=== PATIENT | male | born 1980 | race Caucasian/White ===

== ENCOUNTER 2020-04-25 10:46 | Outpatient (CLI) | payer BC, SELFPAY ==
--- NOTE | 2020-05-06 03:40 | SLEEP_ITS ---
Home Sleep Test DATE OF STUDY: 04/25/2020 ORDERING PHYSICIAN: Dr. Margarito Ramos. REASON FOR THE STUDY: Sleep disturbance. HISTORY: This patient is a 39-year-old male, 5 feet 11 inches tall, weighing 305 pounds with a body mass index of 42.5. The test was recommended to him by his doctor based on his weight. He rarely awakens from sleep short of breath. He occasionally awakens at night with heartburn, belching, or coughing. He rarely snores and it is not loud enough that others complain about it. He rarely has trouble sleeping with a cold. He occasionally wakes up gasping for breath during the night, rarely has breathing problems at night observed by others, rarely sweats excessively at night or notices his heart pounding or beating irregularly at night. He rarely falls asleep during the day or involuntarily, rarely falls asleep while driving or during physical effort. He rarely has loss of muscle tone with strong emotion. 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 He rarely feels paralyzed on waking or falling asleep. He never has vivid dreamlike scenes upon awakening or falling asleep and does not feel afraid to go to sleep. He rarely has nightmares. He occasionally remembers his dreams. He rarely has racing thoughts, feelings of sadness or depression. He occasionally has anxiety. He rarely has muscular tension. He occasionally notices parts of his body jerking. He rarely kicks at night and rarely has crawly achy feelings in his legs at night. He occasionally has leg pain at night. He does not have morning jaw pain, rarely grinds his teeth at night. He rarely is bothered by pain during the day and rarely is awakened by pain during the night. He occasionally wakes up feeling stiff in the morning, rarely with sore achy muscles or pain in the neck and spine. He has bowel disturbances. He does not have a fixed bedtime. He estimates 7 to 8 hours of sleep at night, waking once or twice at night. He does work shift engineer. If he wakes up during sleep, he will use the bathroom and get a drink of water. He wakes up in the afternoon at 3:30 p.m. on days that he works. He sleeps during the daytime through the week and on the weekends he reverts and sleeps at night. He does not take naps. A short nap may be refreshing. He feels better in the afternoon than other times a day. MEDICAL COMORBIDITIES: Diabetes mellitus, hypertension, neuropathy, hyperlipidemia. MEDICATIONS: 1. Metformin 500 mg 2 b.i.d. 2. Glimepiride 2 mg b.i.d. 3. Lisinopril 20 mg a day. 4. Gabapentin 300 mg in the day and 600 mg before sleep. 5. Fenofibrate 160 mg a day. 6. Rosuvastatin 25 mg a day. 7. Amitriptyline 10 mg at bedtime. HABITS: Never smoked tobacco. Caffeine, 2 beverages a day. No alcohol or recreational drugs. DESCRIPTION OF THE STUDY: On the Stanley Sleepiness Scale the score is 11. This test was conducted as an unattended type 3 portable home sleep test using 4 channel monitoring including respiratory effort channel, snoring channel, oxygen saturation channel, and heart rate channel. This study was scored using [facility] guidelines. Duration of the study was 7 hours, 20 minutes. Apnea-hypopnea index was 22. Oxygen desaturation index is 21. Lowest desaturation 82%. He had 7 apneas, 3 were obstructive, 43%, and 4 were central, 57%. He had 154 hypopneas, 383 snoring events and 155 desaturations spending 10 minutes or 2% of the study below 88%. Heart rate ranged from 71 to 130. IMPRESSION: 1. This home sleep test shows evidence of at least moderate obstructive sleep apnea syndrome G47.33 with an apnea-hypopnea index of 22, 3 obstructive apneas, 154 hypopneas. He desaturated to 82% and spent 10 minutes below 88%
== END 2020-04-25 10:47 | disposition home or self-care (01) ==
LOC: ANHCSM 10:46
PROVIDERS: Visit Provider Internal Medicine
DX: G47.33 Obstructive sleep apnea (adult) (pediatric) (principal)
CPT/HCPCS: 95806

== ENCOUNTER 2022-08-21 10:48 | Emergency (ER) | payer BC, SELFPAY ==
[2022-08-21 12:25] VITALS: BP 140/80; PULSE 90; RESP 18; TEMP 36.8; O2SAT 99
== END 2022-08-21 12:28 | disposition left against medical advice (07) ==
PROVIDERS: Emergency Provider Internal Medicine Hematology & Oncology
DX: Z53.21 Procedure and treatment not carried out due to patient leaving prior to being seen by health care provider (principal)
CPT/HCPCS: 99199

== ENCOUNTER 2022-08-25 10:17 | Emergency (ER) | payer BC, SELFPAY ==
[2022-08-25 10:26] VITALS: BP 151/87; PULSE 87; RESP 16; TEMP 36.1; O2SAT 100
--- NOTE | 2022-08-25 10:40 | ED.SKABFB ---
HPI - Skin/Abscess/Foreign Bdy General Chief complaint: Skin/Abscess/Foreign Body Stated complaint: Rash On Body Time Seen by Provider: 08/25/22 10:30 Source: patient Mode of arrival: ambulatory Limitations: no limitations History of Present Illness HPI narrative: Kofi is a 42-year-old male patient presenting to the clinic today with complaints of a rash on his hands, arms, legs, and feet. he reports that the rash is not really itchy or painful. States no new changes in environment, soaps, shampoos, detergents, new foods, or new medications. He has mild swelling to the bilateral lower extremities with a red splotchy rash and changes in pigmentation as well as a scaly red blotchy rash to his bilateral hands going up his arms. He denies any fever, fatigue, chills, or URI symptoms. He has been applying cold on non scented lotion to his lower extremities and hands Related Data Home Medications Medication Instructions Recorded Confirmed glimepiride 4 mg tablet 4 mg PO DAILY 08/25/22 08/25/22 rosuvastatin 20 mg tablet 20 mg PO DAILY 08/25/22 08/25/22 Allergies Allergy/AdvReac Type Severity Reaction Status Date / Time No Known Allergies Allergy Verified 08/25/22 10:27 Review of Systems Review of Systems: Pertinent positives per HPI. Patient denies any fever, chills, headache, visual changes, dizziness, cough, runny nose, sore throat, shortness of breath, chest pain, palpitations, nausea, vomiting, diarrhea, constipation, abdominal pain, or any urinary issues. PMFSH Past Medical History Medical History High blood sugar Family History Family History Father Hypertension Social History Social History Smoking status: Never smoker Alcohol intake: never Comments At the time of my signature, I reviewed and agree with the nursing past medical, surgical, social, and family history. There is no relevant family history pertinent to the patient complaint. Exam Narrative: General: Well-developed, well nourished, in no apparent distress Head: Normocephalic, atraumatic. Cardio: Regular rate and rhythm, s1 and s2 normal, no murmur appreciated. Resp: Clear to auscultation bilaterally, no rhonchi, rales, wheezing or rubs. Integumentary: [place], warm, and dry, intact without lesion, red splotchy rash with changes in pigmentation to the bilateral lower legs with 1+ pitting edema, scaly red splotchy rash to the bilateral hands palm. and nontender to palpation. Rash is blanchable Course Course Emergency Course: Portions of this record may have been created with voice recognition software. Level of Care: Express Care Visit Vital Signs Vital signs: Vital Signs Temperature 36.1 C L 08/25/22 10:26 Pulse Rate 87 08/25/22 10:26 Respiratory Rate 16 08/25/22 10:26 Blood Pressure 151/87 H 08/25/22 10:26 Pulse Oximetry 100 08/25/22 10:26 Oxygen Delivery Room Air 08/25/22 10:26 Temperature 36.1 C L 08/25/22 10:26 Pulse Rate 87 08/25/22 10:26 Respiratory Rate 16 08/25/22 10:26 Blood Pressure 151/87 H 08/25/22 10:26 Pulse Oximetry 100 08/25/22 10:26 Oxygen Delivery Room Air 08/25/22 10:26 Vital signs reviewed MDM - Skin/Abscess/Foreign Bdy MDM Narrative Medical decision making narrative: At the time of the patient is resting comfortably on the exam table. I suspect patient has venous stasis dermatitis of the bilateral lower extremities and dermatitis of the upper extremities. Prescription for prednisone and triamcinolone cream was ordered to see if this improves the rash. Recommend compression stockings. Supportive measures were discussed with the patient he voiced understanding of discharge instructions and agrees to treatment plan. Differential Diagnosis Differential diagnosis: Likely absc
== END 2022-08-25 10:49 | disposition home or self-care (01) ==
PROVIDERS: Emergency Provider Nurse Practitioner Family
DX: I87.2 Venous insufficiency (chronic) (peripheral) (principal); L20.9 Atopic dermatitis, unspecified; E11.9 Type 2 diabetes mellitus without complications
CPT/HCPCS: 99213; G0463

== ENCOUNTER 2024-09-18 14:25 | Outpatient (NON) | payer BC, SELFPAY ==
--- OUTSIDE RECORDS SUMMARY | 2024-09-18 15:09 | XMS_ITS | Referral Summary ---
Author Organization [facility] Address [id number] [place] [id number] Care Team Providers Care Animal Groomer Name Role Phone Kunal Diana MD Primary Care Provider [phone] Encounters Date Type Department Care Team Description 09/18/2024 8:00 AM INTERIOR ASSEMBLIES INSTALLER Procedure visit [facility] Wound [address] [address] 09/17/2024 Orders Only [facility] Primary Care at [address] [place] [phone] Kunal Diana MD 09/17/2024 10:00 AM INTERIOR ASSEMBLIES INSTALLER Orders Only [facility] [address] [place] [phone] 09/17/2024 8:00 AM INTERIOR ASSEMBLIES INSTALLER Procedure visit [address] [address] 09/14/2024 8:00 AM INTERIOR ASSEMBLIES INSTALLER Procedure visit [facility] [address] [place] [phone] 09/13/2024 8:00 AM INTERIOR ASSEMBLIES INSTALLER Procedure visit [address] [address] 09/13/2024 10:00 AM INTERIOR ASSEMBLIES INSTALLER Orders Only [facility] [address] [place] [address] 09/12/2024 8:00 AM INTERIOR ASSEMBLIES INSTALLER Procedure visit [address] [address] 09/11/2024 7:51 AM INTERIOR ASSEMBLIES INSTALLER - 09/11/2024 11:59 PM INTERIOR ASSEMBLIES INSTALLER Hospital Encounter [facility] Radiology [address] [place] [phone] 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) Discharge Disposition: Discharge to home or self care 09/10/2024 Telephone [facility] [address] [place] [phone] Vincent Reed MD 09/06/2024 8:45 AM INTERIOR ASSEMBLIES INSTALLER Orders Only [facility] [address] [place] [phone] 08/23/2024 10:27 AM INTERIOR ASSEMBLIES INSTALLER - 08/23/2024 11:59 PM INTERIOR ASSEMBLIES INSTALLER Hospital Encounter [facility] Diagnostic Imaging [address] [place] [phone] Acute osteomyelitis of metatarsal bone of left foot (HCC) Discharge Disposition: Discharge to home or self care 08/23/2024 10:28 AM INTERIOR ASSEMBLIES INSTALLER - 08/23/2024 11:59 PM INTERIOR ASSEMBLIES INSTALLER Hospital Encounter [facility] [address] [place] [phone] Acute osteomyelitis of metatarsal bone of left foot (HCC) Discharge Disposition: Discharge to home or self care 08/23/2024 Orders Only [facility] [address] [place] [phone] Sharon Aguirre NP Acute osteomyelitis of metatarsal bone of left foot (HCC) (Primary Dx) 08/23/2024 8:45 AM INTERIOR ASSEMBLIES INSTALLER Orders Only [facility] [address] [place] [address] 08/16/2024 9:00 AM INTERIOR ASSEMBLIES INSTALLER Office Visit [facility] Primary Care at [address] [place] [phone] Kunal Diana MD Type 2 diabetes mellitus with hyperlipidemia (HCC) (Primary Dx); Class 3 severe obesity due to excess calories with serious comorbidity and body mass index (BMI) of 40.0 to 44.9 in adult (HCC); Morbid (severe) obesity due to excess calories (HCC); Type 2 diabetes mellitus with hyperglycemia, without long-term current use of insulin (HCC) 08/13/2024 Orders Only [facility] [address] [facility] [address] [place] [phone] Sharon Aguirre NP Other acute osteomyelitis of left foot (HCC) (Primary Dx); Type 2 diabetes mellitus with foot ulcer (CODE) (HCC) 08/09/2024 6:28 PM INTERIOR ASSEMBLIES INSTALLER - 08/09/2024 11:59 PM INTERIOR ASSEMBLIES INSTALLER Hospital Encounter [facility] [address] [place] [phone] Diagnosis unknown Discharge Disposition: Discharge to home or self care 08/09/2024 Orders Only [facility] [address] [place] [phone] Sharon Aguirre NP Diabetic ulcer of toe of left foot associated with type 2 diabetes mellitus, with fat layer exposed (HCC) (Primary Dx) 08/09/2024 8:45 AM INTERIOR ASSEMBLIES INSTALLER Orders Only [facility] [address] [place] [address] 08/02/2024 Orders Only [facility] [address] [place] [address] Sharon Aguirre NP 07/26/2024 9:10 AM INTERIOR ASSEMBLIES INSTALLER - 07/26/2024 11:59 PM INTERIOR ASSEMBLIES INSTALLER Hospital Encounter [address] [address] Diabetic ulcer of toe of left foot associated with type 2 diabetes mellitus, with fat layer exposed (HCC) Discharge Disposition: Discharge to home or self care 07/26/2024 Orders Only [facility] [address] [place] [phone] Sharon Aguirre NP Diabetic ulcer of toe of left foot associated with type 2 diabetes mellitus, with fat layer exposed (HCC) (Primary Dx) 06/27/2024 Orders Only [facility] [address] [place] [phone] Sharon Aguirre NP 06/21/2024 9:35 AM CDT - 06/21/2024 11:59 PM CDT Hospital Encounter [address] [address] Diabetic ulcer of toe of left foot associated with type 2 diabetes mellitus, with fat layer exposed (HCC) Discharge Disposition: Discharge to home or self care 06/21/2024 Orders Only [facility] [address] [place] [address] Sharon Aguirre, RODRIGO Diabetic ulcer of toe of left foot associated with type 2 diabetes mellitus, with fat layer exposed (HCC) (Primary Dx) from Last 3 Months Allergies No known active allergies Medications metFORMIN XR (GLUCOPHAGE XR) 500 mg 24 hr tablet TAKE 2 TABLETS(1000 MG) BY MOUTH TWICE DAILY 360 tablet 1 05/02/20 24 Active amitriptyline (ELAVIL) 10 mg tablet TAKE 1 TABLET(10 MG) BY MOUTH EVERY NIGHT 90 tablet 1 05/02/20 24 Active ammonium lactate (LAC-HYDRIN) 12 % lotionIndicati ons:Dry Skin Apply topically as needed for dry skin 400 g 1 05/25/20 24 Active glimepiride (AMARYL) 4 mg tablet Take 1 tablet (4 mg total) by mouth 2 (two) times a day with meals 180 tablet 1 08/16/20 24 025 Active rosuvastatin (CRESTOR) 5 mg tablet Take 1 tablet (5 mg total) by mouth daily 90 tablet 1 08/16/20 24 025 Active tirzepatide (MOUNJARO) 7.5 mg/0.5 mL pen injector injection Inject 0.5 mL (7.5 mg total) under the skin every 7 days 6 mL 1 09/17/19 25 025 Active tirzepatide (Mounjaro) 5 mg/0.5 mL pen injector Inject 5 mg under the skin every 7 days 6 mL 08/16/20 24 025 Discontinued Active Problems Problem Noted Date Diagnosed Date Idiopathic peripheral neuropathy 12/08/2023 Assessment & Plan (12/08/2023 2:53 PM CDT): Still having sx Not at goal at this time Start elavil 10 mg qhs Type 2 diabetes mellitus with hyperlipidemia Assessment & Plan (08/16/2024 9:07 AM INTERIOR ASSEMBLIES INSTALLER): Lab Results Component Value Date HGBA1C 9.3 08/16/2024 HGBA1C 9.2 03/22/2024 HGBA1C 10.8 12/08/2023 Lab Results Component Value Date MICROALBUR 43.1 04/18/2024 CREATININE 0.74 04/18/2024 A1c as above Not at goal Continue with metformin 1000 mg xr bid. Amaryl 4 mg every am, crestor 5 mg every day C/w monjouro Increase to 5 mg qweekly Assessment & Plan (04/02/2024 10:04 AM CDT): Lab Results Component Value Date HGBA1C 9.2 03/22/2024 HGBA1C 10.8 12/08/2023 Lab Results Component Value Date CREATININE 0.94 03/26/2021 A1c as above Not at goal Continue with metformin 1000 mg xr bid. Amaryl 4 mg every am, crestor 5 mg every day C/w monjouro Assessment & Plan (03/22/2024 12:49 PM CDT): Lab Results Component Value Date HGBA1C 9.2 03/22/2024 HGBA1C 10.8 12/08/2023 Lab Results Component Value Date CREATININE 0.94 03/26/2021 Repeat A1c Labs still pending Check labs now, microalbumin, tsh, cmp Continue with metformin 1000 mg xr bid. Amaryl 4 mg every am, crestor 5 mg every day Had side effects to ozempic Will d/c now Start monjouro lowest dose now Assessment & Plan (12/08/2023 3:08 PM CDT): Lab Results Component Value Date HGBA1C 10.8 12/08/2023 Lab Results Component Value Date CREATININE 0.94 03/26/2021 Check A1c now - uncontrolled Check labs now, microalbumin, tsh, cmp Start metfomrin 500 mg xr every day, with ramp up to 1000 mg bid, start rosuvastatin 5 mg every day , glimpeiride 4 mg every day, and ozempic 0.5 mg qweekluy Annual physical exam 12/08/2023 Assessment & Plan (12/08/2023 2:54 PM CDT): Discussed lifestyle modifications, diet and exercise. Routine blood work ordered/reviewed today. Yearly vision and dental examinations. Morbid (severe) obesity due to excess calories 0 12/08/2023 Assessment & Plan (08/16/2024 9:01 AM INTERIOR ASSEMBLIES INSTALLER): Wt Readings from Last 3 Encounters: 08/16/24 (!) 137.4 kg (303 lb) 04/02/24 131.6 kg (290 lb 1.6 oz) 03/22/24 133 kg (293 lb 3.2 oz) BMI Readings from Last 3 Encounters: 08/16/24 43.48 kg/m?? 04/02/24 41.63 kg/m?? 03/22/24 42.07 kg/m?? Not at goal of bmi <30 Continue diet and exercise BMI Follow-up includes: nutrition counseling and exercise counseling. Assessment & Plan (04/02/2024 10:06 AM CDT): Wt Readings from Last 3 Encounters: 04/02/24 131.6 kg (290 lb 1.6 oz) 03/22/24 133 kg (293 lb 3.2 oz) 12/08/23 132.1 kg (291 lb 4.8 oz) BMI Readings from Last 3 Encounters: 04/02/24 41.63 kg/m?? 03/22/24 42.07 kg/m?? 12/08/23 41.80 kg/m?? Not at goal of bmi <30 Continue diet and exercise BMI Follow-up includes: nutrition counseling and exercise counseling. Assessment & Plan (03/22/2024 12:54 PM CDT): Wt Readings from Last 3 Encounters: 03/22/24 133 kg (293 lb 3.2 oz) 12/08/23 132.1 kg (291 lb 4.8 oz) 03/26/21 (!) 142.9 kg (315 lb) BMI Readings from Last 3 Encounters: 03/22/24 42.07 kg/m?? 12/08/23 41.80 kg/m?? 03/26/21 43.93 kg/m?? Not at goal of bmi <30 Continue diet and exercise BMI Follow-up includes: nutrition counseling and exercise counseling. Assessment & Plan (12/08/2023 3:07 PM CDT): Wt Readings from Last 3 Encounters: 12/08/23 132.1 kg (291 lb 4.8 oz) 03/26/21 (!) 142.9 kg (315 lb) BMI Readings from Last 3 Encounters: 12/08/23 41.80 kg/m?? 03/26/21 43.93 kg/m?? Not at goal of bmi <30 Continue diet and exercise BMI Follow-up includes: nutrition counseling and exercise counseling. Class 3 severe obesity due t o excess calories with serious comorbidity and body mass index (BMI) of 40.0 to 44.9 in adult 12/08/2023 Assessment & Plan (08/16/2024 9:01 AM INTERIOR ASSEMBLIES INSTALLER): Wt Readings from Last 3 Encounters: 08/16/24 (!) 137.4 kg (303 lb) 04/02/24 131.6 kg (290 lb 1.6 oz) 03/22/24 133 kg (293 lb 3.2 oz) BMI Readings from Last 3 Encounters: 08/16/24 43.48 kg/m?? 04/02/24 41.63 kg/m?? 03/22/24 42.07 kg/m?? Not at goal of bmi <30 Continue diet and exercise BMI Follow-up includes: nutrition counseling and exercise counseling. Assessment & Plan (04/02/2024 10:06 AM CDT): Wt Readings from Last 3 Encounters: 04/02/24 131.6 kg (290 lb 1.6 oz) 03/22/24 133 kg (293 lb 3.2 oz) 12/08/23 132.1 kg (291 lb 4.8 oz) BMI Readings from Last 3 Encounters: 04/02/24 41.63 kg/m?? 03/22/24 42.07 kg/m?? 12/08/23 41.80 kg/m?? Not at goal of bmi <30 Continue diet and exercise BMI Follow-up includes: nutrition counseling and exercise counseling. Assessment & Plan (03/22/2024 12:54 PM CDT): Wt Readings from Last 3 Encounters: 03/22/24 133 kg (293 lb 3.2 oz) 12/08/23 132.1 kg (291 lb 4.8 oz) 03/26/21 (!) 142.9 kg (315 lb) BMI Readings from Last 3 Encounters: 03/22/24 42.07 kg/m?? 12/08/23 41.80 kg/m?? 03/26/21 43.93 kg/m?? Not at goal of bmi <30 Continue diet and exercise BMI Follow-up includes: nutrition counseling and exercise counseling. Assessment & Plan (12/08/2023 3:07 PM CDT): Wt Readings from Last 3 Encounters: 12/08/23 132.1 kg (291 lb 4.8 oz) 03/26/21 (!) 142.9 kg (315 lb) BMI Readings from Last 3 Encounters: 12/08/23 41.80 kg/m?? 03/26/21 43.93 kg/m?? Not at goal of bmi <30 Continue diet and exercise BMI Follow-up includes: nutrition counseling and exercise counseling. Immunizations Name Administration Dates Next Due DTP 06/24/1986,03/11/1986,01/28/1981 Influenza, Unspecified 08/16/2024(Deferr ed: Patient Refused),04/02/2024(Deferred: Patient Refused),11/18/2023(Deferred: Patient Refused) MMR 11/26/1985 OPV 06/24/1986,03/11/1986,01/28/1981 Pfizer SARS-CoV-2 Monovalent Vaccination (12+ Yrs) PURPLE 10/20/2020,10/20/2020,09/26/2020,2020 Td, adsorbed 03/12/1996 Tdap 03/26/2021,01/18/2012 Social History Tobacco Use Types Packs/Day Years Used Date Smoking Tobacco: Never Smokeless Tobacco: Never Tobacco Cessation:Counseling Given: Yes AUDIT-C Answer Date Recorded Q1: How often do you have a drink containing alc ohol? Monthly or less 08/16/2024 Q2: How many drinks containi ng alcohol do you have on a typical day when you are drinking? 1 or 2 08/16/2024 Q3: How often do you have si x or more drinks on one occasion? Never 08/16/2024 PHQ-2 Answer Date Recorded PHQ-2 Total Score (If total score is 3 or more points, staff should administer the PHQ-9) 0 08/16/2024 Sex and Gender Information Value Date Recorded Sex Assigned at Not on file Legal Sex Male 7:07 AM CDT Gender Identity Not on file Sexual Orientation Not on file Last Filed Vital Signs Vital Sign Reading Time Taken Comments Blood Pressure 120/86 08/16/2024 8:45 AM INTERIOR ASSEMBLIES INSTALLER Pulse 77 08/16/2024 8:45 AM INTERIOR ASSEMBLIES INSTALLER Temperature 36.4 ??C (97.5 ??F) 03/22/2024 12:37 PM C DT Respiratory Rate 16 08/16/2024 8:45 AM INTERIOR ASSEMBLIES INSTALLER Oxygen Saturation 98% 08/16/2024 8:45 AM INTERIOR ASSEMBLIES INSTALLER Inhaled Oxygen Concentration - - Weight 137.4 kg (303 lb) 08/16/2024 8:45 AM INTERIOR ASSEMBLIES INSTALLER Height 177.8 cm (5' 10 ) 08/16/2024 8:45 AM INTERIOR ASSEMBLIES INSTALLER Body Mass Index 43.48 08/16/2024 8:45 AM INTERIOR ASSEMBLIES INSTALLER Plan of Treatment Not on file Procedures Procedure Name Priority Date/Time Associated Diagnosis Comments POCT GLUCOSE DEVICE Routine 09/12/2024 8 :11 AM INTERIOR ASSEMBLIES INSTALLER IR PICC LINE PLACEMENT > 5 YEARS Schedule Routine, Read Routine (OP Routine) 09/11/2024 9:12 AM INTERIOR ASSEMBLIES INSTALLER 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) ECG 12-LEAD Routine 08/23/2024 11:00 AM INTERIOR ASSEMBLIES INSTALLER Acute osteomyelitis of metatarsal bone of left foot (HCC) XR CHEST PA LATERAL 2 VIEWS Schedule Routine, Read Routine (OP Routine) 08/23/2024 10:53 AM INTERIOR ASSEMBLIES INSTALLER Acute osteomyelitis of metatarsal bone of left foot (HCC) POCT HEMOGLOBIN A1C Routine 08/16/2024 8 :55 AM INTERIOR ASSEMBLIES INSTALLER Type 2 diabetes mellitus with hyperlipidemia (HCC) MSK MR OUTSIDE CONSULT Routine 08/09/2024 6:28 PM INTERIOR ASSEMBLIES INSTALLER Diagnosis unknown AEROBIC AND ANAEROBIC CULTURE AND GRAM STAIN Routine 07/26/2024 9:10 AM INTERIOR ASSEMBLIES INSTALLER Diabetic ulcer of toe of left foot associated with type 2 diabetes mellitus, with fat layer exposed (HCC) AEROBIC AND ANAEROBIC CULTURE AND GRAM STAIN Routine 06/21/2024 9:35 AM CDT Diabetic ulcer of toe of left foot associated with type 2 diabetes mellitus, with fat layer exposed (HCC) HEPATITIS C ANTIBODY Routine 04/18/2024 12:16 PM CDT COMPREHENSIVE METABOLIC PANEL Routine 04/18/2024 12:16 PM CDT Type 2 diabetes mellitus with hyperlipidemia (HCC) LIPID PANEL Routine 04/18/2024 12:16 PM CDT Type 2 diabetes mellitus with hyperlipidemia (HCC) ALBUMIN CREATININE RATIO, URINE Routine 04/18/2024 12:16 PM CDT Type 2 diabetes mellitus with hyperlipidemia (HCC) from Last 3 Months or Most Recently Relevant to Health Maintenance Results * (ABNORMAL) POCT glucose (09/12/2024 8:11 AM INTERIOR ASSEMBLIES INSTALLER) Glucose, POC 217(H) 70 - 199 mg/dL Blood 09/12/2024 8:11 AM INTERIOR ASSEMBLIES INSTALLER 09/12/2024 8:11 AM INTERIOR ASSEMBLIES INSTALLER us Meng Messina MD LAB POCT ORDERABLES - RIVERA CE Final Result [id number] [place] [address] * IR PICC Line Placement Over 5 Years of Age (09/11/2024 9:12 AM INTERIOR ASSEMBLIES INSTALLER) Anatomical Region Laterality Modality Body N/A X-Ray Angiograph y 09/11/2024 10:0 3 AM INTERIOR ASSEMBLIES INSTALLER Impressions 09/11/2024 10:03 AM INTERIOR ASSEMBLIES INSTALLER Successful PICC placement using ultrasound guidance. Electronically signed by: Hieu Capone M.D. Narrative 09/11/2024 10:03 AM INTERIOR ASSEMBLIES INSTALLER EXAMINATION: IR PICC LINE PLACEMENT OVER 5 YEARS OF AGE DATE: 09/11/2024 8:30 AM HISTORY: PICC PLACEMENT TECHNIQUE: The risks, benefits, and alternatives were discussed and informed consent was obtained. ??Prior to beginning the procedure, universal protocol was performed to confirm the patient's identity and the planned procedure. ??Maximum sterile barriers including cap, mask, hand hygiene, sterile gloves, sterile gown, large sterile drape, sterile gel, sterile ultrasound probe cover, and 2% chlorhexidine for cutaneous antisepsis were used. The skin over the right basilic vein was sterilely prepped, draped, and infiltrated with lidocaine. ??Prior to the procedure, this target vessel was evaluated by ultrasound and an image of the patent vessel demonstrating vessel patency was recorded in the patient's electronic medical record. ??This vessel was then accessed using real-time ultrasound guidance. ??A guidewire was passed centrally using fluoroscopic guidance. ??The intravascular length from the access site to the right atrium was assessed. ??After dilating the tract, a 45 cm, 5-Wolof dual-lumen PICC was inserted through the peel-away sheath. The peel-away sheath was then removed. ??The catheter was flushed and secured in place. ??A sterile dressing was applied. The final fluoroscopic image demonstrates the catheter with its tip at the cavoatrial junction. ??No complications were identified. The catheter is ready for immediate use. ??When treatment is completed, this catheter can be removed at the bedside according to standard hospital protocol. Procedure Note Hieu Capone MD - 09/11/2024 EXAMINATION: IR PICC LINE PLACEMENT OVER 5 YEARS OF AGE DATE: 09/11/2024 8:30 AM HISTORY: PICC PLACEMENT TECHNIQUE: The risks, benefits, and alternatives were discussed and informed consent was obtained. Prior to beginning the procedure, universal protocol was performed to confirm the patient's identity and the planned procedure. Maximum sterile barriers including cap, mask, hand hygiene, sterile gloves, sterile gown, large sterile drape, sterile gel, sterile ultrasound probe cover, and 2% chlorhexidine for cutaneous antisepsis were used. The skin over the right basilic vein was sterilely prepped, draped, and infiltrated with lidocaine. Prior to the procedure, this target vessel was evaluated by ultrasound and an image of the patent vessel demonstrating vessel patency was recorded in the patient's electronic medical record. This vessel was then accessed using real-time ultrasound guidance. A guidewire was passed centrally using fluoroscopic guidance. The intravascular length from the access site to the right atrium was assessed. After dilating the tract, a 45 cm, 5-Wolof dual-lumen PICC was inserted through the peel-away sheath. The peel-away sheath was then removed. The catheter was flushed and secured in place. A sterile dressing was applied. The final fluoroscopic image demonstrates the catheter with its tip at the cavoatrial junction. No complications were identified. The catheter is ready for immediate use. When treatment is completed, this catheter can be removed at the bedside according to standard hospital protocol. IMPRESSION: Successful PICC placement using ultrasound guidance. Electronically signed by: Hieu Capone M.D. Ciaran Nogueira MD IMG IR PROCEDURES Final Result * ECG 12 lead (08/23/2024 11:00 AM INTERIOR ASSEMBLIES INSTALLER) 08/23/2024 10:4 8 AM INTERIOR ASSEMBLIES INSTALLER Narrative [facility] - 08/23/2024 3:30 PM INTERIOR ASSEMBLIES INSTALLER Vent Rate: 68 bpm RR Interval: 882 msec WI Interval: 160 msec QRS Duration: 102 msec QT Interval: 352 msec QTC Interval: 368 msec P-R-T [place]: 21 - 49 - 26 degrees IMPRESSION: SINUS RHYTHM NORMAL ECG Electronically Signed By: Dr. Braulio Winter Sharon Aguirre NP ECG ORDERABLES Fin al Result [facility] * X-ray chest 2 views (08/23/2024 10:53 AM INTERIOR ASSEMBLIES INSTALLER) Anatomical Region Laterality Modality Body, Chest N/A Computed Radiogr aphy 08/23/2024 10:5 9 AM INTERIOR ASSEMBLIES INSTALLER Impressions 08/23/2024 10:59 AM INTERIOR ASSEMBLIES INSTALLER Normal study. Electronically signed by: Leo Price M.D. Narrative 08/23/2024 10:59 AM INTERIOR ASSEMBLIES INSTALLER EXAMINATION: XR CHEST PA LATERAL 2 VIEWS HISTORY: Osteomyelitis FINDINGS: Normal heart size. The lungs are well aerated without evidence of fluid, failure or confluent infiltrates. No significant bone abnormalities are seen. Procedure Note Leo Price MD - 08/23/2024 EXAMINATION: XR CHEST PA LATERAL 2 VIEWS HISTORY: Osteomyelitis FINDINGS: Normal heart size. The lungs are well aerated without evidence of fluid, failure or confluent infiltrates. No significant bone abnormalities are seen. IMPRESSION: Normal study. Electronically signed by: Leo Price M.D. Sharon Aguirre BPO SPECIALIST IMG XR PROCEDURES F inal Result * (ABNORMAL) POCT hemoglobin A1c (08/16/2024 8:55 AM INTERIOR ASSEMBLIES INSTALLER) Hemoglobin A1C, POC 9.3 4.0 - 5.6 % Capillary blood 08/16/2024 8 :55 AM INTERIOR ASSEMBLIES INSTALLER Kunal Diana MD POINT OF CARE TEST ORDERABLES Fi nal Result * MSK MR Outside Consult (08/09/2024 6:28 PM INTERIOR ASSEMBLIES INSTALLER) Anatomical Region Laterality Modality N/A Magnetic Resonan ce 08/10/2024 10:3 0 AM INTERIOR ASSEMBLIES INSTALLER Impressions 08/10/2024 1:17 PM INTERIOR ASSEMBLIES INSTALLER Soft tissue defect/ulceration lateral to the 5th metatarsophalangeal joint with T2 signal abnormality about the fifth proximal phalanx and to a lesser extent the fifth metatarsal head, consistent with osteomyelitis. The findings, conclusions and recommendations within this report do not replace the initial findings, conclusions ??and recommendations made at the facility where the study was performed based upon the imaging and clinical condition at that time. ??Comparison with the prior report and clinical history is necessary. ??The provided images may or may not represent the [place] source data set and thus may contain changes that may lower the accuracy of this second-opinion interpretation. Dictated by: Charley Galvan MD, PhD The radiology attending physician has personally reviewed this study, and had reviewed and/or edited this written report and agrees with it. Electronically signed by: Turner Mir MD Narrative 08/10/2024 1:17 PM INTERIOR ASSEMBLIES INSTALLER EXAMINATION: RADIOLOGY CONSULTATION ON OUTSIDE IMAGING STUDY STUDY INITIALLY PERFORMED: 08/06/2024 at [facility], [place]. TYPE OF STUDY: Multiple MR images of the left foot without contrast are provided at the time of this interpretation. CONTRAST ROUTE: No contrast was administered. The protocol was adequate to address the clinical question. The outside final report was not available at the time of this second opinion interpretation. TYPE OF CONSULTATION: Consult on outside imaging study with images submitted through [facility]aring [facility] DATE OF CONSULTATION: 08/10/2024 8:31 AM HISTORY: 44-year-old man with chronic ulcer on the base of the left fifth metatarsal, for evaluation of osteomyelitis COMPARISON: None available. FINDINGS: There is a 15 x 11 mm superficial ulceration lateral to the fifth metatarsophalangeal joint associated adjacent subcutaneous edema and skin thickening. There is T2 signal abnormality about the fifth proximal phalanx, and to a lesser extent, the fifth metatarsal head. Trace fluid at the metatarsophalangeal joint. ??No discrete drainable fluid collection/abscess. No significant joint effusion. 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 Visualized tendons are intact. ??No acute fracture is present. Subacute on chronic denervation of the intrinsic foot musculature. Procedure Note Turner Mir MD - 08/10/2024 EXAMINATION: RADIOLOGY CONSULTATION ON OUTSIDE IMAGING STUDY STUDY INITIALLY PERFORMED: 08/06/2024 at [facility], [place]. TYPE OF STUDY: Multiple MR images of the left foot without contrast are provided at the time of this interpretation. CONTRAST ROUTE: No contrast was administered. The protocol was adequate to address the clinical question. The outside final report was not available at the time of this second opinion interpretation. TYPE OF CONSULTATION: Consult on outside imaging study with images submitted through Outside Image Sharing Service DATE OF CONSULTATION: 08/10/2024 8:31 AM HISTORY: 44-year-old man with chronic ulcer on the base of the left fifth metatarsal, for evaluation of osteomyelitis COMPARISON: None available. FINDINGS: There is a 15 x 11 mm superficial ulceration lateral to the fifth metatarsophalangeal joint associated adjacent subcutaneous edema and skin thickening. There is T2 signal abnormality about the fifth proximal phalanx, and to a lesser extent, the fifth metatarsal head. Trace fluid at the metatarsophalangeal joint. No discrete drainable fluid collection/abscess. No significant joint effusion. 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 Visualized tendons are intact. No acute fracture is present. Subacute on chronic denervation of the intrinsic foot musculature. IMPRESSION: Soft tissue defect/ulceration lateral to the 5th metatarsophalangeal joint with T2 signal abnormality about the fifth proximal phalanx and to a lesser extent the fifth metatarsal head, consistent with osteomyelitis. The findings, conclusions and recommendations within this report do not replace the initial findings, conclusions and recommendations made at the facility where the study was performed based upon the imaging and clinical condition at that time. Comparison with the prior report and clinical history is necessary. The provided images may or may not represent the [place] source data set and thus may contain changes that may lower the accuracy of this second-opinion interpretation. Dictated by: Charley Galvan MD, PhD The radiology attending physician has personally reviewed this study, and had reviewed and/or edited this written report and agrees with it. Electronically signed by: Turner Mir MD Meng Messina MD IM MRI PROCEDURES Final R esult * (ABNORMAL) Aerobic and anaerobic culture and gram stain Wound Foot, left (07/26/2024 9:10 AM INTERIOR ASSEMBLIES INSTALLER) Direct Specimen Exam Stain: Few polymorphonuclear leukocytes seen. Moderate Gram Positive Cocci Comment:Testing performed by : [facility], [address] [facility], [place]., [address] Report Final Report: Moderate Streptococcus agalactiae (Group B Streptococci) * ??* ??* ??* ??* ??* ??* ??* ??* ??* ??* ??* ??* ??* ??* ??* ??* ??* ??* ??* Resistance to penicillin in Group B Streptococcus has not been reported. ??Group B Streptococci are universally susceptible to beta-lactam antibiotics and vancomycin. Routine susceptibility testing is not performed. In penicillin allergic patients, please contact the laboratory at [phone] to request susceptibility testing * ??* ??* ??* ??* ??* ??* ??* ??* ??* ??* ??* ??* ??* ??* ??* ??* ??* ??* ??* Few Staphylococcus aureus Methicillin susceptible (MSSA) by penicillin binding protein 2a (PBP2a) testing. Few Mixed microorganisms. (.) GARY Comment:Testing performed by : [facility], [address] [place]., [address] Organism STREPTOCOCCUS AGALACTIAE (GROUP B STREPTOCOCCI) GARY Organism STAPHYLOCOCCUS AUREUS GARY Organism MIXED MICROORGANISMS. GARY Wound (Foot, left) 07/26/2024 9:10 AM INTERIOR ASSEMBLIES INSTALLER 07/26/2024 4:18 PM INTERIOR ASSEMBLIES INSTALLER Narrative [facility] - 07/30/2024 1:43 PM INTERIOR ASSEMBLIES INSTALLER Specimen received on an ESwab. Testing performed by [facility] ([phone]) Specimens submitted from normally sterile body sites will have all bacterial morphotypes identified. Specimens that contain grossly mixed priyank and/or are from body sites that are not normally sterile will be examined for Staphylococcus aureus, Pseudomonas aeruginosa, beta-hemolytic strep, vancomycin-resistant Enterococcus, Bacteroides, Parabacteroides, Clostridium perfringens and fungus. If any of these are isolated, the organism will be reported. Current interpretive data was last revised on 2019. Organism Antibiotic Method Susceptibility Staphylococcus aureus Vancomycin INTERPRETATION Susceptible Staphylococcus aureus Trimethoprim with Sulfamethoxazole INTERPRETATION Susceptible Staphylococcus aureus Linezolid INTERPRETATION Susceptible Staphylococcus aureus Doxycycline INTERPRETATION Intermediate Staphylococcus aureus Clindamycin INTERPRETATION Susceptible Staphylococcus aureus Erythromycin INTERPRETATION Susceptible Staphylococcus aureus Oxacillin INTERPRETATION Susceptible Staphylococcus aureus Cefazolin INTERPRETATION Susceptible Staphylococcus aureus Ceftriaxone INTERPRETATION Susceptible us Sharon Aguirre NP LAB MICROBIOLOGY - GENERAL ORDERABLES Final Result GARY [address] Department [place] [address] * (ABNORMAL) Aerobic and anaerobic culture and gram stain Wound Foot, left (06/21/2024 9:35 AM CDT) Direct Specimen Exam Stain: No polymorphonuclear leukocytes seen. No organisms seen. Comment:Testing performed by : [facility], [address] [place]., [address] Report Final Report: Few Mixed microorganisms. Includes the following: Few Staphylococcus aureus Methicillin susceptible (MSSA) by penicillin binding protein 2a (PBP2a) testing. (.) GARY Comment:Testing performed by : [facility], [address] [place]., [address] Organism MIXED MICROORGANISMS. GARY Organism STAPHYLOCOCCUS AUREUS GARY Wound (Foot, left) 06/21/2024 9:35 AM CDT 06/21/2024 5:53 PM CDT Narrative GARY - 06/27/2024 2:38 PM INTERIOR ASSEMBLIES INSTALLER Specimen received on an ESwab. Testing performed by [facility] ([phone]) Specimens submitted from normally sterile body sites will have all bacterial morphotypes identified. Specimens that contain grossly mixed priyank and/or are from body sites that are not normally sterile will be examined for Staphylococcus aureus, Pseudomonas aeruginosa, beta-hemolytic strep, vancomycin-resistant Enterococcus, Bacteroides, Parabacteroides, Clostridium perfringens and fungus. If any of these are isolated, the organism will be reported. Current interpretive data was last revised on 2019. Organism Antibiotic Method Susceptibility Staphylococcus aureus Vancomycin INTERPRETATION Susceptible Staphylococcus aureus Trimethoprim with Sulfamethoxazole INTERPRETATION Susceptible Staphylococcus aureus Linezolid INTERPRETATION Susceptible Staphylococcus aureus Doxycycline INTERPRETATION Susceptible Staphylococcus aureus Clindamycin INTERPRETATION Susceptible Staphylococcus aureus Erythromycin INTERPRETATION Susceptible Staphylococcus aureus Oxacillin INTERPRETATION Susceptible Staphylococcus aureus Cefazolin INTERPRETATION Susceptible Staphylococcus aureus Ceftriaxone INTERPRETATION Susceptible us Sharon Aguirre NP LAB MICROBIOLOGY - GENERAL ORDERABLES Final Result GARY [address] Department [place] [address] * Hepatitis C antibody (04/18/2024 12:16 PM CDT) Hep C Ab NON-REACTI VE NON-REACT CHANDRAKANT [facility] Comment: HCV antibody was non-reactive. There is no laboratory evidence of HCV infection. In most cases, no further action is required. However, if recent HCV exposure is suspected, a test for HCV RNA (test code 85222) is suggested. For additional information please refer to http://education.[employer]2Launch/faq/TAE36t6 (This link is being provided for informational/ educational purposes only.) 04/18/2024 12:1 6 PM CDT 04/18/2024 12:16 PM CDT us Kunal Diana MD LAB MICROBIOLOGY - GENERAL ORDER CORINNE Final Result Performing Organization Address [facility] de Phone Number [facility] [address] [place] [address] * (ABNORMAL) Albumin Creatinine Ratio, Urine (04/18/2024 12:16 PM CDT) Creatinine, ur 169 20 - 320 mg/dL [facility] Microalbumin, ur 43.1 See Note: mg/dL [facility] Comment: Reference Range: Reference Range Not established Microalbumin/creat ratio 255(H) <30 mg/g creat [facility] Comment: The ADA defines abnormalities in albumin excretion as follows: Albuminuria Category ?Result (mg/g creatinine) Normal to Mildly increased ?? <30 Moderately increased ? 30-299 Severely increased ? > OR = 300 The ADA recommends that at least two of three specimens collected within a 3-6 month period be abnormal before considering a patient to be within a diagnostic category. Urine 04/18/2024 12:1 6 PM CDT 04/18/2024 12:16 PM CDT us Kunal Diana MD LAB URINE ORDERABLES Final Resul t Performing Organization Address [facility] Co de Phone Number [facility] [address] [place] [address] * (ABNORMAL) Lipid panel (04/18/2024 12:16 PM CDT) Cholesterol 260(H) <200 mg/dL [facility] HDL 45 > OR = 40 mg/dL [facility] Triglycerides 942(H) <150 mg/dL [facility] Comment: If a non-fasting specimen was collected, consider repeat triglyceride testing on a fasting specimen if clinically indicated. Rebeca et al. J. of Clin. Lipidol. 2015;9:129-169. There is increased risk of pancreatitis when the triglyceride concentration is very high (> or = 500 mg/dL, especially if > or = 1000 mg/dL). Rebeca et al. J. of Clin. Lipidol. 2015;9:129-169. LDL mg/dL (calc) [facility] Comment: LDL cholesterol not calculated. Triglyceride levels greater than 400 mg/dL invalidate calculated LDL results. Reference range: <100 Desirable range <100 mg/dL for primary prevention; ?? <70 mg/dL for patients with CHD or diabetic patients with > or = 2 CHD risk factors. LDL-C is now calculated using the Marcelo-Pearl calculation, which is a validated novel method providing better accuracy than the Friedewald equation in the estimation of LDL-C. Marcelo CULLEN et al. KIRA. 2013;310(19): 3745-3478 (http://education.[employer]faq/JGI483) Chol/HDL ratio 5.8(H) <5.0 (calc) [facility] Non-HDL, (LDL+VLDL) 215(H) <130 mg/dL (calc) [facility] Comment: For patients with diabetes plus 1 major ASCVD risk factor, treating to a non-HDL-C goal of <100 mg/dL (LDL-C of <70 mg/dL) is considered a therapeutic option. Blood 04/18/2024 12:1 6 PM CDT 04/18/2024 12:16 PM CDT us Kunal Lebron MD LAB BLOOD ORDERABLES Final Resul t [facility] [address] [place] [address] * (ABNORMAL) Comprehensive metabolic panel (04/18/2024 12:16 PM CDT) Glucose 198(H) 65 - 99 mg/dL [facility] Comment: ? Fasting reference interval For someone without known diabetes, a glucose value >125 mg/dL indicates that they may have diabetes and this should be confirmed with a follow-up test. BUN 13 7 - 25 mg/dL [facility] Creatinine 0.74 0.60 - 1.29 mg/dL [facility] eGFR 115 > OR = 60 mL/min/1.7 3m2 [facility] BUN/creat ratio SEE NOTE: (calc) [facility]en [facility] reed Malcolm Comment: ?? Not Reported: BUN and Creatinine are within ?? reference range. ? Sodium 133(L) 135 - 146 mmol/L [facility] Potassium, pl 4.3 3.5 - 5.3 mmol/L [facility] Chloride 98 98 - 110 mmol/L [facility] CO2 25 20 - 32 mmol/L [facility] Calcium 9.3 8.6 - 10.3 mg/dL [facility] Protein, sr 7.6 6.1 - 8.1 g/dL [facility] Albumin 4.4 3.6 - 5.1 g/dL Carmen [facility] Malcolm GLOBULIN 3.2 1.9 - 3.7 g/dL (calc) [facility] Alb/glob ratio 1.4 1.0 - 2.5 (calc) [facility] Bilirubin, total 0.6 0.2 - 1.2 mg/dL Carmen [facility] Alk phos 55 36 - 130 U/L [facility] AST 28 10 - 40 U/L [facility] Malcolm ALT (SGPT) 32 9 - 46 U/L [facility] Malcolm Blood 04/18/2024 12:1 6 PM CDT 04/18/2024 12:16 PM CDT us Kunal Diana MD LAB BLOOD ORDERABLES Final Resul t [facility] [address] [place] [address] from Last 3 Months or Most Recently Relevant to Health Maintenance Insurance [employer] [place] Member Subscriber Plan / Payer ( fective 2015-Present) Name:Kofi Tang Relation to Subscriber:Self Name:Kofi Tang Payer ID:[id number] (NAIC) Type:BC OTHER Address: [address] [place] [id number] Care Teams Animal Groomer Relationship Specialty Start Date End Date Kunal Diana MD [address] [place] [address] PCP - General Family Medicine 12/08/23
--- OUTSIDE RECORDS SUMMARY | 2024-09-18 15:09 | XMS_ITS | Encounter Summary ---
Author Organization [facility] Healthcare Address [address] [place] [address] Care Team Providers Care Thumb Sewer Name Role Phone Kunal Diana MD Primary Care Provider [phone] Encounter Details Date Type Department Care Team (Late st Contact Info) Description 09/18/2024 8:00 AM GALLEY HAND Procedure visit [facility] [address] [place] [id number] Social History Tobacco Use Types Packs/Day Years Used Date Smoking Tobacco: Never Smokeless Tobacco: Never AUDIT-C Answer Date Recorded Q1: How often [...] on file Sexual Orientation Not on file documented as of this encounter Plan of Treatment Not on file documented as of this encounter Visit Diagnoses Not on filedocumented in this encounter Care Teams Thumb Sewer Relationship Specialty Start Date End Date Kunal Diana MD [address] [place] [address] PCP - General Family Medicine 12/08/23 documented as of this encounter
--- OUTSIDE RECORDS SUMMARY | 2024-09-18 15:09 | XMS_ITS | Encounter Summary ---
Author Organization [facility] Healthcare Address [address] [place] [address] Care Team Providers Care Commercial Agent Name Role Phone Kunal Diana MD Primary Care Provider [phone] Encounter Details Date Type Department Care Team (Late st Contact Info) Description 09/17/2024 10:00 AM SWITCH CREW SUPERVISOR Orders Only [facility] [address] [place] [address] [phone] Social History Tobacco Use Types Packs/Day Years [...] on filedocumented in this encounter Care Teams Commercial Agent Relationship Specialty Start Date End Date Kunal Diana MD [address] [place] [address] PCP - General Family Medicine 12/08/23 documented as of this encounter
--- OUTSIDE RECORDS SUMMARY | 2024-09-18 15:09 | XMS_ITS | Clinical Summary ---
Author Organization [facility] Address [address] [place] [address] Care Team Providers Care R Developer Name Role Phone Kunal Diana MD Primary Care Provider [phone] Allergies No known active allergies Medications metFORMIN [...] hyperlipidemia Assessment & Plan (08/16/2024 9:07 AM ELECTRICIAN SUBSTATION SUPERVISOR): Lab Results Component Value Date HGBA1C 9.3 [...] 12/08/2023 Assessment & Plan (08/16/2024 9:01 AM ELECTRICIAN SUBSTATION SUPERVISOR): Wt Readings from Last 3 Encounters: 08/16/24 [...] 12/08/2023 Assessment & Plan (08/16/2024 9:01 AM ELECTRICIAN SUBSTATION SUPERVISOR): Wt Readings from Last 3 Encounters: 08/16/24 [...] Follow-up includes: nutrition counseling and exercise counseling. Encounters Date Type Department Care Team Description 09/18/2024 8:00 AM ELECTRICIAN SUBSTATION SUPERVISOR Procedure visit [address] [address] 09/17/2024 10:00 AM ELECTRICIAN SUBSTATION SUPERVISOR Orders Only [address] [address] 09/17/2024 8:00 AM ELECTRICIAN SUBSTATION SUPERVISOR Procedure visit [address] [address] 09/17/2024 Orders Only [facility] Primary Care at [address] [address] Kunal Diana MD 09/14/2024 8:00 AM ELECTRICIAN SUBSTATION SUPERVISOR Procedure visit [facility] [address] [place] [address] 09/13/2024 10:00 AM ELECTRICIAN SUBSTATION SUPERVISOR Orders Only [facility] [address] [place] [address] 09/13/2024 8:00 AM ELECTRICIAN SUBSTATION SUPERVISOR Procedure visit [facility] [address] [place] [address] 09/12/2024 8:00 AM ELECTRICIAN SUBSTATION SUPERVISOR Procedure visit [facility] [address] [place] [address] 09/11/2024 7:51 AM ELECTRICIAN SUBSTATION SUPERVISOR - 09/11/2024 11:59 PM ELECTRICIAN SUBSTATION SUPERVISOR Hospital Encounter [facility] [address] [place] [address] 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) Discharge Disposition: Discharge to home or self care 09/10/2024 Telephone [facility] [address] [place] [address] Vincent Reed MD 09/06/2024 8:45 AM ELECTRICIAN SUBSTATION SUPERVISOR Orders Only [facility] [address] [place] [address] 08/23/2024 10:28 AM ELECTRICIAN SUBSTATION SUPERVISOR - 08/23/2024 11:59 PM ELECTRICIAN SUBSTATION SUPERVISOR Hospital Encounter [facility] [address] [place] [address] Acute osteomyelitis of metatarsal bone of left foot (HCC) Discharge Disposition: Discharge to home or self care 08/23/2024 10:27 AM ELECTRICIAN SUBSTATION SUPERVISOR - 08/23/2024 11:59 PM ELECTRICIAN SUBSTATION SUPERVISOR Hospital Encounter [facility] Diagnostic Imaging [address] [place] [address] Acute osteomyelitis of metatarsal bone of left foot (HCC) Discharge Disposition: Discharge to home or self care 08/23/2024 8:45 AM ELECTRICIAN SUBSTATION SUPERVISOR Orders Only [facility] [address] [place] [address] 08/23/2024 Orders Only [facility] [address] [place] [address] Sharon Aguirre NP Acute osteomyelitis of metatarsal bone of left foot (HCC) (Primary Dx) 08/16/2024 9:00 AM ELECTRICIAN SUBSTATION SUPERVISOR Office Visit [facility] Primary Care at [address] [place] [address] Kunal Diana MD Type 2 diabetes mellitus with hyperlipidemia (HCC) (Primary Dx); Class 3 severe obesity due to excess calories with serious comorbidity and body mass index (BMI) of 40.0 to 44.9 in adult (HCC); Morbid (severe) obesity due to excess calories (HCC); Type 2 diabetes mellitus with hyperglycemia, without long-term current use of insulin (HCC) 08/13/2024 Orders Only [facility] [address] [facility] [address] [address] Sharon Aguirre NP Other acute osteomyelitis of left foot (HCC) (Primary Dx); Type 2 diabetes mellitus with foot ulcer (CODE) (HCC) 08/09/2024 6:28 PM ELECTRICIAN SUBSTATION SUPERVISOR - 08/09/2024 11:59 PM ELECTRICIAN SUBSTATION SUPERVISOR Hospital Encounter [facility] [address] [place] [address] Diagnosis unknown Discharge Disposition: Discharge to home or self care 08/09/2024 8:45 AM ELECTRICIAN SUBSTATION SUPERVISOR Orders Only [facility] [address] [place] [address] 08/09/2024 Orders Only [facility] [address] [place] [address] Sharon Aguirre NP Diabetic ulcer of toe of left foot associated with type 2 diabetes mellitus, with fat layer exposed (HCC) (Primary Dx) 08/02/2024 Orders Only [facility] [address] [place] [address] Sharon Aguirre NP 07/26/2024 9:10 AM ELECTRICIAN SUBSTATION SUPERVISOR - 07/26/2024 11:59 PM ELECTRICIAN SUBSTATION SUPERVISOR Hospital Encounter [address] [address] Diabetic ulcer of toe of left foot associated with type 2 diabetes mellitus, with fat layer exposed (HCC) Discharge Disposition: Discharge to home or self care 07/26/2024 Orders Only [facility] [address] [place] [address] Sharon Aguirre NP Diabetic ulcer of toe of left foot associated with type 2 diabetes mellitus, with fat layer exposed (HCC) (Primary Dx) 06/27/2024 Orders Only [facility] [address] [place] [address] Sharon Aguirre NP 06/21/2024 9:35 AM CDT - 06/21/2024 11:59 PM CDT Hospital Encounter [address] [address] Diabetic ulcer of toe of left foot associated with type 2 diabetes mellitus, with fat layer exposed (HCC) Discharge Disposition: Discharge to home or self care 06/21/2024 Orders Only [facility] [address] [place] [address] Sharon Aguirre NP Diabetic ulcer of toe of left foot associated with type 2 diabetes mellitus, with fat layer exposed (HCC) (Primary Dx) from Last 3 Months Immunizations Name Administration Dates Next Due DTP 06/24/1986,03/11/1986,01/28/1981 Influenza, Unspecified 08/16/2024(Deferr ed: Patient Refused),04/02/2024(Deferred: Patient Refused),11/18/2023(Deferred: Patient Refused) MMR 11/26/1985 OPV 06/24/1986,03/11/1986,01/28/1981 Pfizer SARS-CoV-2 Monovalent Vaccination (12+ Yrs) PURPLE 10/20/2020,10/20/2020,09/26/2020,2020 Td, adsorbed 03/12/1996 Tdap 03/26/2021,01/18/2012 Surgical History Surgery Date Site/Laterality Comments IR PICC LINE PLACEMENT > 5 YEARS 09/11/2024 N/A Social History Tobacco Use Types Packs/Day Years [...] on file Sexual Orientation Not on file Obstetrics History Last Filed Vital Signs Vital Sign Reading Time Taken Comments Blood Pressure 120/86 08/16/2024 8:45 AM ELECTRICIAN SUBSTATION SUPERVISOR Pulse 77 08/16/2024 8:45 AM ELECTRICIAN SUBSTATION SUPERVISOR Temperature 36.4 ??C (97.5 ??F) 03/22/2024 12:37 PM C DT Respiratory Rate 16 08/16/2024 8:45 AM ELECTRICIAN SUBSTATION SUPERVISOR Oxygen Saturation 98% 08/16/2024 8:45 AM ELECTRICIAN SUBSTATION SUPERVISOR Inhaled Oxygen Concentration - - Weight 137.4 kg (303 lb) 08/16/2024 8:45 AM ELECTRICIAN SUBSTATION SUPERVISOR Height 177.8 cm (5' 10 ) 08/16/2024 8:45 AM ELECTRICIAN SUBSTATION SUPERVISOR Body Mass Index 43.48 08/16/2024 8:45 AM ELECTRICIAN SUBSTATION SUPERVISOR Plan of Treatment Health Maintenance Due Date Last Done Comments Dilated Eye Exam 1980 Foot Exam 1980 Pneumococcal vaccine <65 (1 of 2 - PCV) 1986 Varicella Vaccines (1 of 2 - 13+ 2-dose series) 1993 Covid-19 Vaccine ( season) 2024 10/12/2021, 10/20/2020, 10/20/2020, Additional history exists Influenza Vaccine (#1) 2024 Regular Well Visit/Exam 18-64 12/07/2024 12/08/2023 Hemoglobin A1C 02/14/2025 08/16/2024, 08/0 08/2023, 12/08/2023 Albumin Creatinine Ratio, Urine 04/18/2025 04/18/2024 Lipid Panel 04/18/2025 04/18/2024 eGFR 04/18/2025 04/18/2024, 03/26/2021 Depression Screening 08/16/2025 08/16/2024, 04/02/2024, 03/22/2024, Additional history exists DTaP/Tdap/Td Vaccine (6 - Td or Tdap) 03/26/2031 03/26/2021, 01/18/2012, 03/12/1996, Additional history exists Hepatitis B Screening Completed 04/18/2024 Hepatitis C Screening Completed 04/18/2024 HPV Vaccines Aged Out No longer eligi ble based on patient's age to complete this topic Procedures Procedure Name Priority Date/Time Associated Diagnosis Comments POCT GLUCOSE DEVICE Routine 09/12/2024 8 :11 AM ELECTRICIAN SUBSTATION SUPERVISOR IR PICC LINE PLACEMENT > 5 YEARS Schedule Routine, Read Routine (OP Routine) 09/11/2024 9:12 AM ELECTRICIAN SUBSTATION SUPERVISOR 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) ECG 12-LEAD Routine 08/23/2024 11:00 AM ELECTRICIAN SUBSTATION SUPERVISOR Acute osteomyelitis of metatarsal bone of left foot (HCC) XR CHEST PA LATERAL 2 VIEWS Schedule Routine, Read Routine (OP Routine) 08/23/2024 10:53 AM ELECTRICIAN SUBSTATION SUPERVISOR Acute osteomyelitis of metatarsal bone of left foot (HCC) POCT HEMOGLOBIN A1C Routine 08/16/2024 8 :55 AM ELECTRICIAN SUBSTATION SUPERVISOR Type 2 diabetes mellitus with hyperlipidemia (HCC) JUSTYN MR OUTSIDE CONSULT Routine 08/09/2024 6:28 PM ELECTRICIAN SUBSTATION SUPERVISOR Diagnosis unknown AEROBIC AND ANAEROBIC CULTURE AND GRAM STAIN Routine 07/26/2024 9:10 AM ELECTRICIAN SUBSTATION SUPERVISOR Diabetic ulcer of toe of left foot [...] * (ABNORMAL) POCT glucose (09/12/2024 8:11 AM ELECTRICIAN SUBSTATION SUPERVISOR) Glucose, POC 217(H) 70 - 199 mg/dL Blood 09/12/2024 8:11 AM ELECTRICIAN SUBSTATION SUPERVISOR 09/12/2024 8:11 AM ELECTRICIAN SUBSTATION SUPERVISOR us Meng Messina MD LAB POCT ORDERABLES - RIVERA CE Final Result [facility] [address] Department [place] [address] * IR PICC Line Placement Over 5 Years of Age (09/11/2024 9:12 AM ELECTRICIAN SUBSTATION SUPERVISOR) Anatomical Region Laterality Modality Body N/A X-Ray Angiograph y 09/11/2024 10:0 3 AM ELECTRICIAN SUBSTATION SUPERVISOR Impressions 09/11/2024 10:03 AM ELECTRICIAN SUBSTATION SUPERVISOR Successful PICC placement using ultrasound guidance. Electronically signed by: Hieu Capone M.D. Narrative 09/11/2024 10:03 AM ELECTRICIAN SUBSTATION SUPERVISOR EXAMINATION: IR PICC LINE PLACEMENT OVER 5 [...] ??After dilating the tract, a 45 cm, 5-Cymro dual-lumen PICC was inserted through the peel-away [...] After dilating the tract, a 45 cm, 5-Cymro dual-lumen PICC was inserted through the peel-away [...] * ECG 12 lead (08/23/2024 11:00 AM ELECTRICIAN SUBSTATION SUPERVISOR) 08/23/2024 10:4 8 AM ELECTRICIAN SUBSTATION SUPERVISOR Narrative [facility] - 08/23/2024 3:30 PM ELECTRICIAN SUBSTATION SUPERVISOR Vent Rate: 68 bpm RR Interval: 882 msec DC Interval: 160 msec QRS Duration: 102 msec QT Interval: 352 msec QTC Interval: 368 msec P-R-T [place]: 21 - 49 - 26 degrees IMPRESSION: SINUS RHYTHM NORMAL ECG Electronically Signed By: Dr. Braulio Winter Sharon Aguirre NP ECG ORDERABLES Fin al Result [facility] * X-ray chest 2 views (08/23/2024 10:53 AM ELECTRICIAN SUBSTATION SUPERVISOR) Anatomical Region Laterality Modality Body, Chest N/A Computed Radiogr aphy 08/23/2024 10:5 9 AM ELECTRICIAN SUBSTATION SUPERVISOR Impressions 08/23/2024 10:59 AM ELECTRICIAN SUBSTATION SUPERVISOR Normal study. Electronically signed by: Leo Price M.D. Narrative 08/23/2024 10:59 AM ELECTRICIAN SUBSTATION SUPERVISOR EXAMINATION: XR CHEST PA LATERAL 2 VIEWS [...] signed by: Leo Price M.D. Sharon Aguirre TELEGRAPH PLANT MAINTAINER IMG XR PROCEDURES F inal Result * (ABNORMAL) POCT hemoglobin A1c (08/16/2024 8:55 AM ELECTRICIAN SUBSTATION SUPERVISOR) Hemoglobin A1C, POC 9.3 4.0 - 5.6 % Capillary blood 08/16/2024 8 :55 AM ELECTRICIAN SUBSTATION SUPERVISOR Kunal Diana MD POINT OF CARE TEST ORDERABLES Fi nal Result * MSK MR Outside Consult (08/09/2024 6:28 PM ELECTRICIAN SUBSTATION SUPERVISOR) Anatomical Region Laterality Modality N/A Magnetic Resonan ce 08/10/2024 10:3 0 AM ELECTRICIAN SUBSTATION SUPERVISOR Impressions 08/10/2024 1:17 PM ELECTRICIAN SUBSTATION SUPERVISOR Soft tissue defect/ulceration lateral to the 5th [...] images may or may not represent the council source data set and thus may contain changes that may lower the accuracy of this second-opinion interpretation. Dictated by: Charley Galvan MD, PhD The radiology attending physician has personally reviewed this study, and had reviewed and/or edited this written report and agrees with it. Electronically signed by: Turner Mir MD Narrative 08/10/2024 1:17 PM ELECTRICIAN SUBSTATION SUPERVISOR EXAMINATION: RADIOLOGY CONSULTATION ON OUTSIDE IMAGING STUDY STUDY INITIALLY PERFORMED: 08/06/2024 at [facility]. TYPE OF STUDY: Multiple MR images of [...] IMAGING STUDY STUDY INITIALLY PERFORMED: 08/06/2024 at [facility]. TYPE OF STUDY: Multiple MR images of [...] images may or may not represent the council source data set and thus may contain changes that may lower the accuracy of this second-opinion interpretation. Dictated by: Charley Galvan MD, PhD The radiology attending physician has personally reviewed this study, and had reviewed and/or edited this written report and agrees with it. Electronically signed by: Turner Mir MD us Meng Messina MD IMG MRI PROCEDURES Final R esult * (ABNORMAL) Aerobic and anaerobic culture and gram stain Wound Foot, left (07/26/2024 9:10 AM ELECTRICIAN SUBSTATION SUPERVISOR) Direct Specimen Exam Stain: Few polymorphonuclear leukocytes seen. Moderate Gram Positive Cocci Comment:Testing performed by : [facility], [address] [facility], [place]., [address] Report Final Report: Moderate Streptococcus agalactiae (Group [...] allergic patients, please contact the laboratory at [phone] to request susceptibility testing * ??* ??* ??* ??* ??* ??* ??* ??* ??* ??* ??* ??* ??* ??* ??* ??* ??* ??* ??* Few Staphylococcus aureus Methicillin susceptible (MSSA) by penicillin binding protein 2a (PBP2a) testing. Few Mixed microorganisms. (.) GARY SULLIVAN Comment:Testing performed by : [facility], [address] [place] [address]., [id number] Organism STREPTOCOCCUS AGALACTIAE (GROUP B STREPTOCOCCI) GARY Organism STAPHYLOCOCCUS AUREUS GARY Organism MIXED MICROORGANISMS. GARY SULLIVAN Wound (Foot, left) 07/26/2024 9:10 AM ELECTRICIAN SUBSTATION SUPERVISOR 07/26/2024 4:18 PM ELECTRICIAN SUBSTATION SUPERVISOR Narrative GARY - 07/30/2024 1:43 PM ELECTRICIAN SUBSTATION SUPERVISOR Specimen received on an ESwab. Testing performed by [facility] ([phone]) Specimens submitted from normally sterile body sites [...] INTERPRETATION Susceptible Staphylococcus aureus Ceftriaxone INTERPRETATION Susceptible Sharon Aguirre NP LAB MICROBIOLOGY - GENERAL ORDERABLES Final Result GARY [address] Department [place] [address] * (ABNORMAL) Aerobic and anaerobic culture and gram stain Wound Foot, left (06/21/2024 9:35 AM CDT) Direct Specimen Exam Stain: No polymorphonuclear leukocytes seen. No organisms seen. Comment:Testing performed by : [facility], [address] [place] [address]., [id number] Report Final Report: Few Mixed microorganisms. Includes the following: Few Staphylococcus aureus Methicillin susceptible (MSSA) by penicillin binding protein 2a (PBP2a) testing. (.) GARY SULLIVAN Comment:Testing performed by : [facility], [address] [place]., [address] Organism MIXED MICROORGANISMS. GARY Organism STAPHYLOCOCCUS AUREUS GARY Wound (Foot, left) 06/21/2024 9:35 AM CDT 06/21/2024 5:53 PM CDT Narrative GARY SULLIVAN - 06/27/2024 2:38 PM ELECTRICIAN SUBSTATION SUPERVISOR Specimen received on an ESwab. Testing performed by [facility] ([phone]) Specimens submitted from normally sterile body sites [...] INTERPRETATION Susceptible Staphylococcus aureus Ceftriaxone INTERPRETATION Susceptible Sharon Aguirre NP LAB MICROBIOLOGY - GENERAL ORDERABLES Final Result GARY SULLIVAN [address] Department [place] [address] * Hepatitis C antibody (04/18/2024 12:16 PM CDT) Hep C Ab NON-REACTI VE NON-REACT CHANDRAKANT [facility] Comment: HCV antibody was non-reactive. There is no laboratory evidence of HCV infection. In most cases, no further action is required. However, if recent HCV exposure is suspected, a test for HCV RNA (test code 58842) is suggested. For additional information please refer to http://education.CarZumer.DocuSign/faq/JEL83j1 (This link is being provided for informational/ educational purposes only.) 04/18/2024 12:1 6 PM CDT 04/18/2024 12:16 PM CDT Kunal Diana MD LAB MICROBIOLOGY - GENERAL ORDER CORINNE Final Result Performing Organization Address [facility] de Phone Number [facility] [address] [place] [address] * (ABNORMAL) Albumin Creatinine Ratio, Urine (04/18/2024 [...] 6 PM CDT 04/18/2024 12:16 PM CDT Kunal Diana MD LAB URINE ORDERABLES Final Resul t Performing Organization Address [facility] de Phone Number [facility] [address] [place] [address] * (ABNORMAL) Lipid panel (04/18/2024 12:16 PM CDT) Cholesterol 260(H) <200 mg/dL [facility] HDL 45 > OR = 40 mg/dL [facility] Triglycerides 942(H) <150 mg/dL [facility] Comment: If a non-fasting specimen was collected, consider repeat triglyceride testing on a fasting specimen if clinically indicated. Rebeca et al. J. of Clin. Lipidol. 2015;9:129-169. There is increased risk of pancreatitis when the triglyceride concentration is very high (> or = 500 mg/dL, especially if > or = 1000 mg/dL). Rebeca et al. J. of Clin. Lipidol. 2015;9:129-169. LDL mg/dL (calc) [facility] Comment: LDL cholesterol not calculated. Triglyceride [...] LDL-C. Marcelo CULLEN et al. KIRA. 2013;310(19): 0119-6753 (http://education.Cool Lumens/faq/IEA192) Chol/HDL ratio 5.8(H) <5.0 (calc) [facility] Non-HDL, (LDL+VLDL) 215(H) <130 mg/dL (calc) [facility] Comment: For patients with diabetes plus 1 major ASCVD risk factor, treating to a non-HDL-C goal of <100 mg/dL (LDL-C of <70 mg/dL) is considered a therapeutic option. Blood 04/18/2024 12:1 6 PM CDT 04/18/2024 12:16 PM CDT us Kunal Diana MD LAB BLOOD ORDERABLES Final Resul t [facility] [address] [place] [address] * (ABNORMAL) Comprehensive metabolic panel (04/18/2024 12:16 PM CDT) Glucose 198(H) 65 - 99 mg/dL [facility] Comment: ? Fasting reference interval For someone without known diabetes, a glucose value >125 mg/dL indicates that they may have diabetes and this should be confirmed with a follow-up test. BUN 13 7 - 25 mg/dL [facility] Creatinine 0.74 0.60 - 1.29 mg/dL [facility] eGFR 115 > OR = 60 mL/min/1.7 3m2 [facility] BUN/creat ratio SEE NOTE: 6 - 22 (calc) [facility] Comment: ?? Not Reported: BUN and Creatinine are within ?? reference range. ? Sodium 133(L) 135 - 146 mmol/L [facility] Potassium, pl 4.3 3.5 - 5.3 mmol/L [facility] Chloride 98 98 - 110 mmol/L [facility] CO2 25 20 - 32 mmol/L [facility] Calcium 9.3 8.6 - 10.3 mg/dL [facility] Protein, sr 7.6 6.1 - 8.1 g/dL [facility] Albumin 4.4 3.6 - 5.1 g/dL [facility] GLOBULIN 3.2 1.9 - 3.7 g/dL (calc) [facility] Alb/glob ratio 1.4 1.0 - 2.5 (calc) [facility] Bilirubin, total 0.6 0.2 - 1.2 mg/dL [facility] Alk phos 55 36 - 130 U/L [facility] AST 28 10 - 40 U/L [facility] ALT (SGPT) 32 9 - 46 U/L [facility] Blood 04/18/2024 12:1 6 PM CDT 04/18/2024 12:16 PM CDT us Kunal Diana MD LAB BLOOD ORDERABLES Final Resul t [facility] [address] [place] [address] from Last 3 Months or Most Recently Relevant to Health Maintenance Insurance [facility] [employer] Care Teams R Developer Relationship Specialty Start Date End Date Kunal Diana MD [address] [facility] [place] [address] PCP - General Family Medicine 12/08/23
--- OUTSIDE RECORDS SUMMARY | 2024-09-18 15:09 | XMS_ITS | Encounter Summary ---
Author Organization [facility] Healthcare Address [address] [place] [address] Care Team Providers Care Commercial Stripper Name Role Phone Kunal Diana MD Primary Care Provider Encounter Details Date Type Department Care Team (Late st Contact Info) Description 09/17/2024 Orders Only [facility] Medical Group Primary Care at [address] [place] [address] Kunal Diana MD [address] [place] [address] [address] [place] [address] Social History Tobacco Use Types Packs/Day Years [...] on file documented as of this encounter Ordered Prescriptions Prescription Sig Dispense Quantity Refills Last Filled Start Date End Date tirzepatide (MOUNJARO) 7.5 mg/0.5 mL pen injector injection Inject 0.5 mL (7.5 mg total) under the skin every 7 days 6 mL 1 09/17/2024 03/16/2025 documented in this encounter Plan of Treatment Not on file documented as of this encounter Visit Diagnoses Not on filedocumented in this encounter Discontinued Medications Medication Sig Discontinue Reason Start Date End Da te tirzepatide (Mounjaro) 5 mg/0.5 mL pen injector Inject 5 mg under the skin every 7 days 08/16/2024 09/17/2024 documented as of this encounter Care Teams Commercial Stripper Relationship Specialty Start Date End Date Kunal Diana MD [address] [facility] [address] [place] [address] PCP - General Family Medicine 12/08/23 documented as of this encounter
--- OUTSIDE RECORDS SUMMARY | 2024-09-18 15:09 | XMS_ITS | Encounter Summary ---
Author Organization [facility] Healthcare Address [address] [place] [address] Care Team Providers Care Weight Recorder Name Role Phone Kunal Diana MD Primary Care Provider [phone] Encounter Details Date Type Department Care Team (Late st Contact Info) Description 09/17/2024 8:00 AM PSYCHOLOGIST EDUCATIONAL Procedure visit [facility] [address] [place] [address] Social History Tobacco Use Types Packs/Day [...] on filedocumented in this encounter Care Teams Weight Recorder Relationship Specialty Start Date End Date Kunal Diana MD [address] [facility] [place] [address] PCP - General Family Medicine 12/08/23 documented as of this encounter
--- OUTSIDE RECORDS SUMMARY | 2024-09-18 15:09 | XMS_ITS | Clinical Summary ---
Author Organization [facility] Address [address] [place] [address] Phone Care Team Providers Care Streetcar Dispatcher Name Role Phone Hasmukh De La Paz MD Primary Care Provider Allergies No known active allergies Medications OMEGA-3 FATTY ACIDS (FISH OIL ORAL) Take by mouth daily. Active azithromycin (ZITHROMAX) 250 mg tablet Take 2 tabs the first day and 1 tab days 2-5 1 Package 0 08/10/2013 Active Active Problems Problem Noted Date Diagnosed Date Other and unspecified hyperlipidemia 01/18/2012 Obesity, unspecified 01/18/2012 Routine general medical exam ination at a health care facility 01/18/2012 Encounters Date Type Department Care Team Description 09/13/2024 External Device Data [facility] Provider, Abstract 08/07/2024 External Device Data [facility] Provider, Abstract 08/06/2024 9:30 AM RAILROAD CAR CLEANER Ancillary Procedure [address] [id number] [facility] Diabetic foot ulcer with osteomyelitis ([facility]/HCC) from Last 3 Months Immunizations Immunization Administration Dates Next Due (ADACEL/BOOSTRIX)(10 YR UP) TDAP VACCINE, 0.5ML, IM 01/18/2012 Family History Medical History Relation Name Comments Other Mother seizures Diabetes Paternal Grandfather Heart Disease Paternal Grandfather Relation Name Status Comments Father Alive Mother Alive Paternal Grandfather Paternal Grandmother Alive Social History Tobacco Use Types Packs/Day Years Used Date Smoking Tobacco: Never Smokeless Tobacco: Never Alcohol Use Standard Drinks/Week Comments No 0 (1 standard drink = 0.6 oz pur e alcohol) Sex and Gender Information Value Date Recorded Sex Assigned at Not on file Legal Sex Male 10:28 AM RAILROAD CAR [employer] Gender Identity Not on file Sexual Orientation Not on file Last Filed Vital Signs Vital Sign Reading Time Taken Comments Blood Pressure 134/86 08/10/2013 8:06 AM RAILROAD CAR CLE[employer] Pulse 76 08/10/2013 8:06 AM RAILROAD CAR CLE[employer]ER Temperature 37.1 ??C (98.8 ??F) 08/10/2013 8 :06 AM RAILROAD CAR CLE[employer]ER pt took tylenol this morning Respiratory Rate 16 08/10/2013 8:06 AM RAILROAD CAR CLE[employer]ER Oxygen Saturation 97% 08/10/2013 8:0 6 AM RAILROAD CAR CLE[employer]ER Inhaled Oxygen Concentration - - Weight 170.1 kg (375 lb) 08/10/2013 8:0 6 AM RAILROAD CAR CLE[employer]ER Height 180.3 cm (5' 11 ) 08/10/2013 8:0 6 AM RAILROAD CAR CLE[employer]ER Body Mass Index 52.3 08/10/2013 8:06 AM RAILROAD CAR CLE[employer]ER Plan of Treatment Health Maintenance Due Date Last Done Comments DIABETES ANNUAL FOOT EXAM 1998 DIABETES ANNUAL RETINAL EXAM 1998 DIABETES MICROALBUMIN ANNUAL SCREEN 1998 LDL CHOLESTEROL ANNUAL 1998 HEPATITIS B VACCINES (1 of 3 - 19+ 3-dose series) 1999 INFLUENZA VACCINE (#1) 2024 COVID-19 Vaccine (2023- season) 2024 10/20/2020, 09/26/2020 Preventative Visit- Commercial 08/22/2024 12/08/2023 DIABETES HBA1C Q 6 MONTHS 09/22/2024 03/22/2024 DTAP/TDAP/TD VACCINES (6 - Td or Tdap) 03/26/2031 03/26/2021, 01/18/2012, 06/24/1986, Additional history exists HPV VACCINES Aged Out No longer eligi ble based on patient's age to complete this topic Procedures Procedure Name Priority Date/Time Associated Diagnosis Comments MRI FOOT WO CONTRAST LEFT Routine 08/06/2024 10:03 AM RAILROAD CAR CLE[employer]ER Diabetic foot ulcer with osteomyelitis (CMS/HCC) from Last 3 Months Results * MRI FOOT WO CONTRAST LEFT (08/06/2024 10:03 AM RAILROAD CAR CLE[employer]ER) Anatomical Region Laterality Modality Ankle / Foot Magnetic Resonan ce 08/06/2024 10:0 4 AM RAILROAD CAR CLE[employer]ER Impressions 08/06/2024 10:10 AM RAILROAD CAR CLE[employer]ER IMPRESSION: ?? 1. Probable soft tissue ulcer over the fifth metatarsal head with associated edema in involving the interosseous muscles of the fourth and fifth metatarsals. There is also some edema apparent in the fifth proximal phalanx. Osteomyelitis cannot be excluded. Narrative 08/06/2024 10:10 AM RAILROAD CAR CLEANER EXAM: MRI FOOT WO CONTRAST LEFT DATE: 08/06/2024 HISTORY: Diabetic foot ulcer with osteomyelitis; Diabetic foot ulcer with osteomyelitis; Diabetic foot ulcer with osteomyelitis; Diabetic foot ulcer with osteomyelitis COMPARISON: None. TECHNIQUE: Multiplanar, multisequence FINDINGS: A bandage is noted over the fifth metatarsal phalangeal joint. There does appear to be a soft tissue defect in that area. There is increased T2 signal superficial to the fifth proximal phalanx. Mild increased T2 signal is present in the fifth proximal phalanx. The lack of intravenous contrast somewhat degrades evaluation for possible osteomyelitis in that area. The intraosseous muscles adjacent to the fourth and fifth metatarsals demonstrate edema with increased T2 signal noted. No evidence of tendon pathology or tear is identified. The alignment of the forefoot bones is within normal limits. The ligaments and joint capsules of the forefoot appear intact. There is no joint effusion or evidence of synovitis. Normal flow voids are apparent. Procedure Note Meng Toro MD - 08/06/2024 EXAM: MRI FOOT WO CONTRAST LEFT DATE: 08/06/2024 HISTORY: Diabetic foot ulcer with osteomyelitis; Diabetic foot ulcer with osteomyelitis; Diabetic foot ulcer with osteomyelitis; Diabetic foot ulcer with osteomyelitis COMPARISON: None. TECHNIQUE: Multiplanar, multisequence FINDINGS: A bandage is noted over the fifth metatarsal phalangeal joint. There does appear to be a soft tissue defect in that area. There is increased T2 signal superficial to the fifth proximal phalanx. Mild increased T2 signal is present in the fifth proximal phalanx. The lack of intravenous contrast somewhat degrades evaluation for possible osteomyelitis in that area. The intraosseous muscles adjacent to the fourth and fifth metatarsals demonstrate edema with increased T2 signal noted. No evidence of tendon pathology or tear is identified. The alignment of the forefoot bones is within normal limits. The ligaments and joint capsules of the forefoot appear intact. There is no joint effusion or evidence of synovitis. Normal flow voids are apparent. IMPRESSION: 1. Probable soft tissue ulcer over the fifth metatarsal head with associated edema in involving the interosseous muscles of the fourth and fifth metatarsals. There is also some edema apparent in the fifth proximal phalanx. Osteomyelitis cannot be excluded. us Meng Messina MD MR ORDERABLES Final Resul t from Last 3 Months Insurance JACKELYN ANGULO [id number] Care Teams Streetcar Dispatcher Relationship Specialty Start [place] [id number] [id number] PCP - General Internal Medicine 07/24/12
[2024-09-18 16:15] LABS: Hematocrit 42.8 % (42.0-52.0); Hemoglobin 14.7 g/dL (14.0-18.0); Mean Corpuscular HGB Conc 34.3 g/dl (32-36); Mean Corpuscular Hemoglobin 29.8 pg (26-34); Mean Corpuscular Volume 86.6 fl (80-100); Mean Platelet Volume 11.8 fl (7.4-10.4); Platelet Count Result 143 k/mm3 (150-375); Red Blood Count 4.94 M/mm3 (4.6-6.20); Red Cell Distribution Width 13.7 % (11.5-14.5); White Blood Count 8.5 K/mm3 (4.5-10.0)
[2024-09-18 16:37] LABS: Alanine Aminotransferase 40 U/L (6-50); Albumin Level 4.4 g/dL (3.5-5.1); Alkaline Phosphatase 63 U/L (38-126); Anion Gap 10 mmol/L (4-12); Aspartate Amino Transferase 38 U/L (17-59); Bilirubin,Total 0.8 mg/dL (0.2-1.3); Blood Urea Nitrogen 16 mg/dL (9-20); CRP 3.3 mg/dL (<1.0); Calcium 9.5 mg/dL (8.4-10.2); Carbon Dioxide 28 mmol/L (22-30); Chloride 100 mmol/L (98-107); Estimated Glomerular Filt Rate > 60; Glucose 128 mg/dL (65-110); Sodium 138 mmol/L (137-145)
[2024-09-18 16:41] LABS: Erythrocyte Sedimentation Rate 39 mm/hr (0-20)
== END 2024-09-18 14:26 | disposition home or self-care (01) ==
LOC: ANHLAB 14:33 → HOME HLTH 15:00
PROVIDERS: PCP Internal Medicine
DX: L97.522 Non-pressure chronic ulcer of other part of left foot with fat layer exposed (principal)
CPT/HCPCS: 80053; 85027; 85652; 86140

== ENCOUNTER 2024-09-25 15:03 | Outpatient (NON) | payer BC, SELFPAY ==
--- OUTSIDE RECORDS SUMMARY | 2024-09-25 15:13 | XMS_ITS | Referral Summary ---
Author Organization [facility] Address [id number] [place] [id number] Care Team Providers Care Resident Services Supervisor Name Role Phone Kunal Diana MD Primary Care Provider [phone] Encounters Date Type Department Care Team Description 09/25/2024 8:00 AM PHYSICAL THERAPY PROFESSOR Procedure visit [address] [address] 09/24/2024 8:00 AM PHYSICAL THERAPY PROFESSOR Procedure visit [address] [address] 09/21/2024 10:00 AM PHYSICAL THERAPY PROFESSOR Orders Only [address] [address] 09/21/2024 8:00 AM PHYSICAL THERAPY PROFESSOR Procedure visit [address] [address] 09/20/2024 10:00 AM PHYSICAL THERAPY PROFESSOR Orders Only [facility] [address] [place] [address] 09/20/2024 8:00 AM PHYSICAL THERAPY PROFESSOR Procedure visit [address] [address] 09/19/2024 8:00 AM PHYSICAL THERAPY PROFESSOR Procedure visit [address] [address] 09/18/2024 8:00 AM PHYSICAL THERAPY PROFESSOR Procedure visit [address] [address] 09/17/2024 Orders Only [facility] Primary Care at [address] [place] [address] Kunal Diana MD 09/17/2024 10:00 AM PHYSICAL THERAPY PROFESSOR Orders Only [facility] [address] [place] [address] 09/17/2024 8:00 AM PHYSICAL THERAPY PROFESSOR Procedure visit [address] [address] 09/14/2024 8:00 AM PHYSICAL THERAPY PROFESSOR Procedure visit [facility] [address] [place] [address] 09/13/2024 8:00 AM PHYSICAL THERAPY PROFESSOR Procedure visit [address] [address] 09/13/2024 10:00 AM PHYSICAL THERAPY PROFESSOR Orders Only [facility] [address] [place] [address] 09/12/2024 8:00 AM PHYSICAL THERAPY PROFESSOR Procedure visit 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) Discharge Disposition: Discharge to home or self care 09/10/2024 Telephone [facility] [address] [place] [address] Vincent Reed MD 09/06/2024 8:45 AM PHYSICAL THERAPY PROFESSOR Orders Only [facility] [address] [place] [address] 08/23/2024 10:27 AM PHYSICAL THERAPY PROFESSOR - 08/23/2024 11:59 PM PHYSICAL THERAPY PROFESSOR Hospital Encounter [facility] Diagnostic Imaging [address] [place] [address] Acute osteomyelitis of metatarsal bone of left foot (HCC) Discharge Disposition: Discharge to home or self care 08/23/2024 10:28 AM PHYSICAL THERAPY PROFESSOR - 08/23/2024 11:59 PM PHYSICAL THERAPY PROFESSOR Hospital Encounter [facility] [address] [place] [address] Acute osteomyelitis of metatarsal bone of left foot (HCC) Discharge Disposition: Discharge to home or self care 08/23/2024 Orders Only [facility] [address] [place] [address] Sharon Aguirre NP Acute osteomyelitis of metatarsal bone of left foot (HCC) (Primary Dx) 08/23/2024 8:45 AM PHYSICAL THERAPY PROFESSOR Orders Only [facility] [address] [place] [address] 08/16/2024 9:00 AM PHYSICAL THERAPY PROFESSOR Office Visit [facility] Primary Care at [address] [address] Kunal Diana MD Type 2 diabetes mellitus with hyperlipidemia (HCC) (Primary Dx); Class 3 severe obesity due to excess calories with serious comorbidity and body mass index (BMI) of 40.0 to 44.9 in adult (HCC); Morbid (severe) obesity due to excess calories (HCC); Type 2 diabetes mellitus with hyperglycemia, without long-term current use of insulin (HCC) 08/13/2024 Orders Only [facility] [address], [place] [phone] Sharon Aguirre NP Other acute osteomyelitis of left foot (HCC) (Primary Dx); Type 2 diabetes mellitus with foot ulcer (CODE) (HCC) 08/09/2024 6:28 PM PHYSICAL THERAPY PROFESSOR - 08/09/2024 11:59 PM PHYSICAL THERAPY PROFESSOR Hospital Encounter [facility] [address] [place] [address] Diagnosis unknown Discharge Disposition: Discharge to home or self care 08/09/2024 Orders Only [facility] [address] [place] [address] Sharon Aguirre NP Diabetic ulcer of toe of left foot associated with type 2 diabetes mellitus, with fat layer exposed (HCC) (Primary Dx) 08/09/2024 8:45 AM PHYSICAL THERAPY PROFESSOR Orders Only [facility] [address] [place] [address] 08/02/2024 Orders Only [facility] [address] [place] [address] Sharon Aguirre NP 07/26/2024 9:10 AM PHYSICAL THERAPY PROFESSOR - 07/26/2024 11:59 PM PHYSICAL THERAPY PROFESSOR Hospital Encounter [address] [address] Diabetic ulcer of toe of left foot associated with type 2 diabetes mellitus, with fat layer exposed (HCC) Discharge Disposition: Discharge to home or self care 07/26/2024 Orders Only [facility] [address] [place] [address] Sharon Aguirre NP Diabetic ulcer of toe of left foot associated with type 2 diabetes mellitus, with fat layer exposed (HCC) (Primary Dx) 06/27/2024 Orders Only [address] [address] Sharon Aguirre NP from Last 3 Months Allergies No known [...] hyperlipidemia Assessment & Plan (08/16/2024 9:07 AM PHYSICAL THERAPY PROFESSOR): Lab Results Component Value Date HGBA1C 9.3 [...] 12/08/2023 Assessment & Plan (08/16/2024 9:01 AM PHYSICAL THERAPY PROFESSOR): Wt Readings from Last 3 Encounters: 08/16/24 [...] 12/08/2023 Assessment & Plan (08/16/2024 9:01 AM PHYSICAL THERAPY PROFESSOR): Wt Readings from Last 3 Encounters: 08/16/24 [...] Comments Blood Pressure 120/86 08/16/2024 8:45 AM PHYSICAL THERAPY PROFESSOR Pulse 77 08/16/2024 8:45 AM PHYSICAL THERAPY PROFESSOR Temperature 36.4 ??C (97.5 ??F) 03/22/2024 12:37 PM C DT Respiratory Rate 16 08/16/2024 8:45 AM PHYSICAL THERAPY PROFESSOR Oxygen Saturation 98% 08/16/2024 8:45 AM PHYSICAL THERAPY PROFESSOR Inhaled Oxygen Concentration - - Weight 137.4 kg (303 lb) 08/16/2024 8:45 AM PHYSICAL THERAPY PROFESSOR Height 177.8 cm (5' 10 ) 08/16/2024 8:45 AM PHYSICAL THERAPY PROFESSOR Body Mass Index 43.48 08/16/2024 8:45 AM PHYSICAL THERAPY PROFESSOR Plan of Treatment Not on file Procedures Procedure Name Priority Date/Time Associated Diagnosis Comments POCT GLUCOSE DEVICE Routine 09/12/2024 8 :11 AM PHYSICAL THERAPY PROFESSOR IR PICC LINE PLACEMENT > 5 YEARS Schedule Routine, Read Routine (OP Routine) 09/11/2024 9:12 AM PHYSICAL THERAPY PROFESSOR 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) ECG 12-LEAD Routine 08/23/2024 11:00 AM PHYSICAL THERAPY PROFESSOR Acute osteomyelitis of metatarsal bone of left foot (HCC) XR CHEST PA LATERAL 2 VIEWS Schedule Routine, Read Routine (OP Routine) 08/23/2024 10:53 AM PHYSICAL THERAPY PROFESSOR Acute osteomyelitis of metatarsal bone of left foot (HCC) POCT HEMOGLOBIN A1C Routine 08/16/2024 8 :55 AM PHYSICAL THERAPY PROFESSOR Type 2 diabetes mellitus with hyperlipidemia (HCC) K MR OUTSIDE CONSULT Routine 08/09/2024 6:28 PM PHYSICAL THERAPY PROFESSOR Diagnosis unknown AEROBIC AND ANAEROBIC CULTURE AND GRAM STAIN Routine 07/26/2024 9:10 AM PHYSICAL THERAPY PROFESSOR Diabetic ulcer of toe of left foot [...] * (ABNORMAL) POCT glucose (09/12/2024 8:11 AM PHYSICAL THERAPY PROFESSOR) Glucose, POC 217(H) 70 - 199 mg/dL Blood 09/12/2024 8:11 AM PHYSICAL THERAPY PROFESSOR 09/12/2024 8:11 AM PHYSICAL THERAPY PROFESSOR us Meng Messina MD LAB POCT ORDERABLES - RIVERA CE Final Result GARY [address] [place] [address] * IR PICC Line Placement Over 5 Years of Age (09/11/2024 9:12 AM PHYSICAL THERAPY PROFESSOR) Anatomical Region Laterality Modality Body N/A X-Ray Angiograph y 09/11/2024 10:0 3 AM PHYSICAL THERAPY PROFESSOR Impressions 09/11/2024 10:03 AM PHYSICAL THERAPY PROFESSOR Successful PICC placement using ultrasound guidance. Electronically signed by: Hieu Capone M.D. Narrative 09/11/2024 10:03 AM PHYSICAL THERAPY PROFESSOR EXAMINATION: IR PICC LINE PLACEMENT OVER 5 [...] ??After dilating the tract, a 45 cm, 5-Gabonese dual-lumen PICC was inserted through the peel-away [...] After dilating the tract, a 45 cm, 5-Gabonese dual-lumen PICC was inserted through the peel-away [...] by: Hieu Capone M.D. Ciaran Nogueira MD [facility] IR PROCEDURES Final Result * ECG 12 lead (08/23/2024 11:00 AM PHYSICAL THERAPY PROFESSOR) 08/23/2024 10:4 8 AM PHYSICAL THERAPY PROFESSOR Narrative [facility] - 08/23/2024 3:30 PM PHYSICAL THERAPY PROFESSOR Vent Rate: 68 bpm RR Interval: 882 msec ME Interval: 160 msec QRS Duration: 102 msec QT Interval: 352 msec QTC Interval: 368 msec P-R-T Crozier: 21 - 49 - 26 degrees IMPRESSION: SINUS RHYTHM NORMAL ECG Electronically Signed By: Dr. Braulio Winter Sharon Aguirre MARBLE CARVER ECG ORDERABLES Fin al Result [facility] * X-ray chest 2 views (08/23/2024 10:53 AM PHYSICAL THERAPY PROFESSOR) Anatomical Region Laterality Modality Body, Chest N/A Computed Radiogr aphy 08/23/2024 10:5 9 AM PHYSICAL THERAPY PROFESSOR Impressions 08/23/2024 10:59 AM PHYSICAL THERAPY PROFESSOR Normal study. Electronically signed by: Leo Price M.D. Narrative 08/23/2024 10:59 AM PHYSICAL THERAPY PROFESSOR EXAMINATION: XR CHEST PA LATERAL 2 VIEWS [...] signed by: Leo Price M.D. Sharon Aguirre NP IMG XR PROCEDURES F inal Result * (ABNORMAL) POCT hemoglobin A1c (08/16/2024 8:55 AM PHYSICAL THERAPY PROFESSOR) Hemoglobin A1C, POC 9.3 4.0 - 5.6 % Capillary blood 08/16/2024 8 :55 AM PHYSICAL THERAPY PROFESSOR Kunal Diana MD POINT OF CARE TEST ORDERABLES Fi nal Result * MSK MR Outside Consult (08/09/2024 6:28 PM PHYSICAL THERAPY PROFESSOR) Anatomical Region Laterality Modality N/A Magnetic Resonan ce 08/10/2024 10:3 0 AM PHYSICAL THERAPY PROFESSOR Impressions 08/10/2024 1:17 PM PHYSICAL THERAPY PROFESSOR Soft tissue defect/ulceration lateral to the 5th [...] images may or may not represent the picayune source data set and thus may contain changes that may lower the accuracy of this second-opinion interpretation. Dictated by: Charley Galvan MD, PhD The radiology attending physician has personally reviewed this study, and had reviewed and/or edited this written report and agrees with it. Electronically signed by: Turner Mir MD Narrative 08/10/2024 1:17 PM PHYSICAL THERAPY PROFESSOR EXAMINATION: RADIOLOGY CONSULTATION ON OUTSIDE IMAGING STUDY STUDY INITIALLY PERFORMED: 08/06/2024 at [facility]. TYPE OF STUDY: Multiple MR images of [...] IMAGING STUDY STUDY INITIALLY PERFORMED: 08/06/2024 at [facility]. TYPE OF STUDY: Multiple MR images of [...] images may or may not represent the picayune source data set and thus may contain [...] stain Wound Foot, left (07/26/2024 9:10 AM PHYSICAL THERAPY PROFESSOR) Direct Specimen Exam Stain: Few polymorphonuclear leukocytes seen. Moderate Gram Positive Cocci Comment:Testing performed by : [facility], [address] [facility], [place]., [address] Report Final Report: Moderate Streptococcus agalactiae (Group [...] allergic patients, please contact the laboratory at [phone] to request susceptibility testing * ??* ??* ??* ??* ??* ??* ??* ??* ??* ??* ??* ??* ??* ??* ??* ??* ??* ??* ??* Few Staphylococcus aureus Methicillin susceptible (MSSA) by penicillin binding protein 2a (PBP2a) testing. Few Mixed microorganisms. (.) [facility] Comment:Testing performed by : [facility], [address] [place]., [address] Organism STREPTOCOCCUS AGALACTIAE (GROUP B STREPTOCOCCI) [facility] Organism STAPHYLOCOCCUS AUREUS [facility] Organism MIXED MICROORGANISMS. [facility] Wound (Foot, left) 07/26/2024 9:10 AM PHYSICAL THERAPY PROFESSOR 07/26/2024 4:18 PM PHYSICAL THERAPY PROFESSOR Narrative [facility] - 07/30/2024 1:43 PM PHYSICAL THERAPY PROFESSOR Specimen received on an ESwab. Testing performed by [facility] Microbiology Laboratory ([phone]) Specimens submitted from normally sterile body sites [...] - GENERAL ORDERABLES Final Result [facility] [address] [place] [address] * Hepatitis C antibody (04/18/2024 12:16 PM CDT) Hep C Ab NON-REACTI VE NON-REACT CHANDRAKANT [facility] Comment: HCV antibody was non-reactive. There is no laboratory evidence of HCV infection. In most cases, no further action is required. However, if recent HCV exposure is suspected, a test for HCV RNA (test code 03462) is suggested. For additional information please refer to http://education.TC Website Promotions/faq/NNV11p5 (This link is being provided for informational/ educational purposes only.) 04/18/2024 12:1 6 PM CDT 04/18/2024 12:16 PM CDT us Kunal Diana MD LAB MICROBIOLOGY - GENERAL ORDER CORINNE Final Result Performing Organization Address City/[facility]/ZIP Co de Phone Number [facility] [address] [place] [address] * (ABNORMAL) Albumin Creatinine Ratio, Urine (04/18/2024 [...] MD LAB URINE ORDERABLES Final Resul t [facility] [address] [address] [address] * (ABNORMAL) Lipid panel (04/18/2024 12:16 PM CDT) Cholesterol 260(H) <200 mg/dL [facility] HDL 45 > OR = 40 mg/dL [facility] Triglycerides 942(H) <150 mg/dL [facility] Comment: If a non-fasting specimen was collected, consider repeat triglyceride testing on a fasting specimen if clinically indicated. Jose et al. J. of Clin. Lipidol. 2015;9:129-169. There is increased risk of pancreatitis when the triglyceride concentration is very high (> or = 500 mg/dL, especially if > or = 1000 mg/dL). Jose et al. J. of Clin. Lipidol. 2015;9:129-169. LDL mg/dL (calc) [facility] Comment: LDL cholesterol not calculated. Triglyceride levels greater than 400 mg/dL invalidate calculated LDL results. Reference range: <100 Desirable range <100 mg/dL for primary prevention; ?? <70 mg/dL for patients with CHD or diabetic patients with > or = 2 CHD risk factors. LDL-C is now calculated using the Marcelo-Dae calculation, which is a validated novel method providing better accuracy than the Friedewald equation in the estimation of LDL-C. Marcelo SS et al. KIRA. 2013;310(19): 2731-2835 (http://education.TimeBridge/faq/PYG475) Chol/HDL ratio 5.8(H) <5.0 (calc) [facility] Non-HDL, (LDL+VLDL) 215(H) <130 mg/dL (calc) [facility] Comment: For patients with diabetes plus 1 major ASCVD risk factor, treating to a non-HDL-C goal of <100 mg/dL (LDL-C of <70 mg/dL) is considered a therapeutic option. Blood 04/18/2024 12:1 6 PM CDT 04/18/2024 12:16 PM CDT Kunal Diana MD LAB BLOOD ORDERABLES Final Resul t [facility] [address] [place] [address] * (ABNORMAL) Comprehensive metabolic panel (04/18/2024 12:16 PM CDT) Glucose 198(H) 65 - 99 mg/dL [facility] Comment: ? Fasting reference interval For someone without known diabetes, a glucose value >125 mg/dL indicates that they may have diabetes and this should be confirmed with a follow-up test. BUN 13 7 - 25 mg/dL [facility] Creatinine 0.74 0.60 - 1.29 mg/dL [facility] eGFR 115 > OR = 60 mL/min/1.7 3m2 [facility] BUN/creat ratio SEE NOTE: 6 - 22 (calc) [email or web address] Comment: ?? Not Reported: BUN and Creatinine are within ?? reference range. ? Sodium 133(L) 135 - 146 mmol/L [facility] Potassium, pl 4.3 3.5 - 5.3 mmol/L [facility] Chloride 98 98 - 110 mmol/L [facility] CO2 25 20 - 32 mmol/L [facility] Calcium 9.3 8.6 - 10.3 mg/dL [facility] Protein, sr 7.6 6.1 - 8.1 g/dL [facility] Albumin 4.4 3.6 - 5.1 g/dL [facility] GLOBULIN 3.2 1.9 - 3.7 g/dL (calc) [facility] Alb/glob ratio 1.4 1.0 - 2.5 (calc) [facility] Bilirubin, total 0.6 0.2 - 1.2 mg/dL [facility] Alk phos 55 36 - 130 U/L [facility] AST 28 10 - 40 U/L [facility] ALT (SGPT) 32 9 - 46 U/L [facility] Blood 04/18/2024 12:1 6 PM CDT 04/18/2024 12:16 PM CDT us Kunal Diana MD LAB BLOOD ORDERABLES Final Resul t [facility] [address] [place] [address] from Last 3 Months or Most Recently Relevant to Health Maintenance Insurance [employer] [place] * Guarantor: Kofi Tang Account Type Relation to Patient Date of Phone Billing Address Personal/Family Self [address] [place] [address] [employer] [place] Care Teams Resident Services Supervisor Relationship Specialty Start Date End Date Kunal Diana MD [facility] [address] [address] PCP - General Family Medicine 12/08/23
--- OUTSIDE RECORDS SUMMARY | 2024-09-25 15:13 | XMS_ITS | Clinical Summary ---
Author Organization [facility] Address [address] [place] [address] Care Team Providers Care Paper Control Clerk Name Role Phone Kunal Diana MD Primary Care Provider [phone] Allergies No known active allergies Medications metFORMIN [...] hyperlipidemia Assessment & Plan (08/16/2024 9:07 AM FINAL INSPECTOR BALANCE WHEEL): Lab Results Component Value Date HGBA1C 9.3 [...] 12/08/2023 Assessment & Plan (08/16/2024 9:01 AM FINAL INSPECTOR BALANCE WHEEL): Wt Readings from Last 3 Encounters: 08/16/24 [...] 12/08/2023 Assessment & Plan (08/16/2024 9:01 AM FINAL INSPECTOR BALANCE WHEEL): Wt Readings from Last 3 Encounters: 08/16/24 [...] Department Care Team Description 09/25/2024 8:00 AM FINAL INSPECTOR BALANCE WHEEL Procedure visit [address] [address] 09/24/2024 8:00 AM FINAL INSPECTOR BALANCE WHEEL Procedure visit [address] [address] 09/21/2024 10:00 AM FINAL INSPECTOR BALANCE WHEEL Orders Only [address] [address] 09/21/2024 8:00 AM FINAL INSPECTOR BALANCE WHEEL Procedure visit [address] [address] 09/20/2024 10:00 AM FINAL INSPECTOR BALANCE WHEEL Orders Only [facility] [address] [place] [address] 09/20/2024 8:00 AM FINAL INSPECTOR BALANCE WHEEL Procedure visit [address] [address] 09/19/2024 8:00 AM FINAL INSPECTOR BALANCE WHEEL Procedure visit [address] [address] 09/18/2024 8:00 AM FINAL INSPECTOR BALANCE WHEEL Procedure visit [address] [address] 09/17/2024 10:00 AM FINAL INSPECTOR BALANCE WHEEL Orders Only [facility] [address] [place] [address] 09/17/2024 8:00 AM FINAL INSPECTOR BALANCE WHEEL Procedure visit [address] [address] 09/17/2024 Orders Only [facility] Primary Care at [address] [address] Kunal Diana MD 09/14/2024 8:00 AM FINAL INSPECTOR BALANCE WHEEL Procedure visit [address] [address] 09/13/2024 10:00 AM FINAL INSPECTOR BALANCE WHEEL Orders Only [address] [address] 09/13/2024 8:00 AM FINAL INSPECTOR BALANCE WHEEL Procedure visit [facility] [address] [place] [address] 09/12/2024 8:00 AM FINAL INSPECTOR BALANCE WHEEL Procedure visit [address] [address] 09/11/2024 7:51 AM FINAL INSPECTOR BALANCE WHEEL - 09/11/2024 11:59 PM FINAL INSPECTOR BALANCE WHEEL Hospital Encounter [facility] Imaging and Radiology [address] [place] [address] 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) Discharge Disposition: Discharge to home or self care 09/10/2024 Telephone [facility] [address] [place] [address] Vincent Reed MD 09/06/2024 8:45 AM FINAL INSPECTOR BALANCE WHEEL Orders Only [facility] [address] [place] [address] 08/23/2024 10:28 AM FINAL INSPECTOR BALANCE WHEEL - 08/23/2024 11:59 PM FINAL INSPECTOR BALANCE WHEEL Hospital Encounter [facility] [address] [place] [address] Acute osteomyelitis of metatarsal bone of left foot (HCC) Discharge Disposition: Discharge to home or self care 08/23/2024 10:27 AM FINAL INSPECTOR BALANCE WHEEL - 08/23/2024 11:59 PM FINAL INSPECTOR BALANCE WHEEL Hospital Encounter [facility] Diagnostic Imaging [address] [place] [address] Acute osteomyelitis of metatarsal bone of left foot (HCC) Discharge Disposition: Discharge to home or self care 08/23/2024 8:45 AM FINAL INSPECTOR BALANCE WHEEL Orders Only [facility] [address] [place] [address] 08/23/2024 Orders Only [facility] [address] [place] [address] Sharon Aguirre NP Acute osteomyelitis of metatarsal bone of left foot (HCC) (Primary Dx) 08/16/2024 9:00 AM FINAL INSPECTOR BALANCE WHEEL Office Visit [facility] Primary Care at [address] [address] Kunal Diana MD Type 2 diabetes mellitus with hyperlipidemia (HCC) (Primary Dx); Class 3 severe obesity due to excess calories with serious comorbidity and body mass index (BMI) of 40.0 to 44.9 in adult (HCC); Morbid (severe) obesity due to excess calories (HCC); Type 2 diabetes mellitus with hyperglycemia, without long-term current use of insulin (HCC) 08/13/[address] [facility] [address] [address] Sharon Aguirre NP Other acute osteomyelitis of left foot (HCC) (Primary Dx); Type 2 diabetes mellitus with foot ulcer (CODE) (HCC) 08/09/2024 6:28 PM FINAL INSPECTOR BALANCE WHEEL - 08/09/2024 11:59 PM FINAL INSPECTOR BALANCE WHEEL Hospital Encounter [facility] [address] [place] [address] Diagnosis unknown Discharge Disposition: Discharge to home or self care 08/09/2024 8:45 AM FINAL INSPECTOR BALANCE WHEEL Orders Only [facility] [address] [place] [address] 08/09/2024 Orders Only [facility] [address] [place] [address] Sharon Aguirre NP Diabetic ulcer of toe of left foot associated with type 2 diabetes mellitus, with fat layer exposed (HCC) (Primary Dx) 08/02/2024 Orders Only [address] [address] Sharon Aguirre NP 07/26/2024 9:10 AM FINAL INSPECTOR BALANCE WHEEL - 07/26/2024 11:59 PM FINAL INSPECTOR BALANCE WHEEL Hospital Encounter [address] [address] Diabetic ulcer of toe of left foot associated with type 2 diabetes mellitus, with fat layer exposed (HCC) Discharge Disposition: Discharge to home or self care 07/26/2024 Orders Only [address] [address] Sharon Aguirre NP Diabetic ulcer of toe of left foot associated with type 2 diabetes mellitus, with fat layer exposed (HCC) (Primary Dx) 06/27/2024 Orders Only [facility] [address] [place] [address] Sharon Aguirre NP from Last 3 Months Immunizations Name Administration [...] Comments Blood Pressure 120/86 08/16/2024 8:45 AM FINAL INSPECTOR BALANCE WHEEL Pulse 77 08/16/2024 8:45 AM FINAL INSPECTOR BALANCE WHEEL Temperature 36.4 ??C (97.5 ??F) 03/22/2024 12:37 PM C DT Respiratory Rate 16 08/16/2024 8:45 AM FINAL INSPECTOR BALANCE WHEEL Oxygen Saturation 98% 08/16/2024 8:45 AM FINAL INSPECTOR BALANCE WHEEL Inhaled Oxygen Concentration - - Weight 137.4 kg (303 lb) 08/16/2024 8:45 AM FINAL INSPECTOR BALANCE WHEEL Height 177.8 cm (5' 10 ) 08/16/2024 8:45 AM FINAL INSPECTOR BALANCE WHEEL Body Mass Index 43.48 08/16/2024 8:45 AM FINAL INSPECTOR BALANCE WHEEL Plan of Treatment Health Maintenance Due Date [...] GLUCOSE DEVICE Routine 09/12/2024 8 :11 AM FINAL INSPECTOR BALANCE WHEEL IR PICC LINE PLACEMENT > 5 YEARS Schedule Routine, Read Routine (OP Routine) 09/11/2024 9:12 AM FINAL INSPECTOR BALANCE WHEEL 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) ECG 12-LEAD Routine 08/23/2024 11:00 AM FINAL INSPECTOR BALANCE WHEEL Acute osteomyelitis of metatarsal bone of left foot (HCC) XR CHEST PA LATERAL 2 VIEWS Schedule Routine, Read Routine (OP Routine) 08/23/2024 10:53 AM FINAL INSPECTOR BALANCE WHEEL Acute osteomyelitis of metatarsal bone of left foot (HCC) POCT HEMOGLOBIN A1C Routine 08/16/2024 8 :55 AM FINAL INSPECTOR BALANCE WHEEL Type 2 diabetes mellitus with hyperlipidemia (HCC) MSK MR OUTSIDE CONSULT Routine 08/09/2024 6:28 PM FINAL INSPECTOR BALANCE WHEEL Diagnosis unknown AEROBIC AND ANAEROBIC CULTURE AND GRAM STAIN Routine 07/26/2024 9:10 AM FINAL INSPECTOR BALANCE WHEEL Diabetic ulcer of toe of left foot [...] * (ABNORMAL) POCT glucose (09/12/2024 8:11 AM FINAL INSPECTOR BALANCE WHEEL) Glucose, POC 217(H) 70 - 199 mg/dL Blood 09/12/2024 8:11 AM FINAL INSPECTOR BALANCE WHEEL 09/12/2024 8:11 AM FINAL INSPECTOR BALANCE WHEEL us Meng Messina MD LAB POCT ORDERABLES - RIVERA CE Final Result [facility] [address] Department [place] [address] * IR PICC Line Placement Over 5 Years of Age (09/11/2024 9:12 AM FINAL INSPECTOR BALANCE WHEEL) Anatomical Region Laterality Modality Body N/A X-Ray Angiograph y 09/11/2024 10:0 3 AM FINAL INSPECTOR BALANCE WHEEL Impressions 09/11/2024 10:03 AM FINAL INSPECTOR BALANCE WHEEL Successful PICC placement using ultrasound guidance. Electronically signed by: Hieu Capone M.D. Narrative 09/11/2024 10:03 AM FINAL INSPECTOR BALANCE WHEEL EXAMINATION: IR PICC LINE PLACEMENT OVER 5 [...] ??After dilating the tract, a 45 cm, 5-Scottish dual-lumen PICC was inserted through the peel-away [...] After dilating the tract, a 45 cm, 5-Scottish dual-lumen PICC was inserted through the peel-away [...] * ECG 12 lead (08/23/2024 11:00 AM FINAL INSPECTOR BALANCE WHEEL) 08/23/2024 10:4 8 AM FINAL INSPECTOR BALANCE WHEEL Narrative [facility] - 08/23/2024 3:30 PM FINAL INSPECTOR BALANCE WHEEL Vent Rate: 68 bpm RR Interval: 882 msec KS Interval: 160 msec QRS Duration: 102 msec QT Interval: 352 msec QTC Interval: 368 msec P-R-T [place]: 21 - 49 - 26 degrees IMPRESSION: SINUS RHYTHM NORMAL ECG Electronically Signed By: Dr. Braulio Winter Sharon Aguirre NP ECG ORDERABLES Fin al Result [facility] * X-ray chest 2 views (08/23/2024 10:53 AM FINAL INSPECTOR BALANCE WHEEL) Anatomical Region Laterality Modality Body, Chest N/A Computed Radiogr aphy 08/23/2024 10:5 9 AM FINAL INSPECTOR BALANCE WHEEL Impressions 08/23/2024 10:59 AM FINAL INSPECTOR BALANCE WHEEL Normal study. Electronically signed by: Leo Price M.D. Narrative 08/23/2024 10:59 AM FINAL INSPECTOR BALANCE WHEEL EXAMINATION: XR CHEST PA LATERAL 2 VIEWS [...] signed by: Leo Price M.D. Sharon Aguirre HOT HEAD MACHINE OPERATOR IMG XR PROCEDURES F inal Result * (ABNORMAL) POCT hemoglobin A1c (08/16/2024 8:55 AM FINAL INSPECTOR BALANCE WHEEL) Hemoglobin A1C, POC 9.3 4.0 - 5.6 % Capillary blood 08/16/2024 8 :55 AM FINAL INSPECTOR BALANCE WHEEL Kunal Diana MD POINT OF CARE TEST ORDERABLES Fi nal Result * MSK MR Outside Consult (08/09/2024 6:28 PM FINAL INSPECTOR BALANCE WHEEL) Anatomical Region Laterality Modality N/A Magnetic Resonan ce 08/10/2024 10:3 0 AM FINAL INSPECTOR BALANCE WHEEL Impressions 08/10/2024 1:17 PM FINAL INSPECTOR BALANCE WHEEL Soft tissue defect/ulceration lateral to the 5th [...] images may or may not represent the [place] source data set and thus may contain changes that may lower the accuracy of this second-opinion interpretation. Dictated by: Charley Galvan MD, PhD The radiology attending physician has personally reviewed this study, and had reviewed and/or edited this written report and agrees with it. Electronically signed by: Turner Mir MD Narrative 08/10/2024 1:17 PM FINAL INSPECTOR BALANCE WHEEL EXAMINATION: RADIOLOGY CONSULTATION ON OUTSIDE IMAGING STUDY STUDY INITIALLY PERFORMED: 08/06/2024 at [facility]. TYPE OF STUDY: Multiple MR images of [...] IMAGING STUDY STUDY INITIALLY PERFORMED: 08/06/2024 at [facility]. TYPE OF STUDY: Multiple MR images of [...] images may or may not represent the [place] source data set and thus may contain changes that may lower the accuracy of this second-opinion interpretation. Dictated by: Charley Galvan MD, PhD The radiology attending physician has personally reviewed this study, and had reviewed and/or edited this written report and agrees with it. Electronically signed by: Turner Mir MD us Meng eMssina MD IM MRI PROCEDURES Final R esult * (ABNORMAL) Aerobic and anaerobic culture and gram stain Wound Foot, left (07/26/2024 9:10 AM FINAL INSPECTOR BALANCE WHEEL) Direct Specimen Exam Stain: Few polymorphonuclear leukocytes seen. Moderate Gram Positive Cocci Comment:Testing performed by : [facility], [address] [place]., [address] Report Final Report: Moderate Streptococcus agalactiae (Group [...] allergic patients, please contact the laboratory at [phone] to request susceptibility testing * ??* ??* ??* ??* ??* ??* ??* ??* ??* ??* ??* ??* ??* ??* ??* ??* ??* ??* ??* Few Staphylococcus aureus Methicillin susceptible (MSSA) by penicillin binding protein 2a (PBP2a) testing. Few Mixed microorganisms. (.) GARY SULLIVAN Comment:Testing performed by : [facility], [address] [facility], [place]., [address] Organism STREPTOCOCCUS AGALACTIAE (GROUP B STREPTOCOCCI) GARY Organism STAPHYLOCOCCUS AUREUS GARY Organism MIXED MICROORGANISMS. GARY Wound (Foot, left) 07/26/2024 9:10 AM FINAL INSPECTOR BALANCE WHEEL 07/26/2024 4:18 PM FINAL INSPECTOR BALANCE WHEEL Narrative GARY - 07/30/2024 1:43 PM FINAL INSPECTOR BALANCE WHEEL Specimen received on an ESwab. Testing performed by [facility] Microbiology Laboratory ([phone]) Specimens submitted from normally sterile body sites [...] MICROBIOLOGY - GENERAL ORDERABLES Final Result [facility] [address] Department [place] [address] * Hepatitis C antibody (04/18/2024 12:16 PM CDT) Hep C Ab NON-REACTI VE NON-REACT CHANDRAKANT [facility] Comment: HCV antibody was non-reactive. There is no laboratory evidence of HCV infection. In most cases, no further action is required. However, if recent HCV exposure is suspected, a test for HCV RNA (test code 93669) is suggested. For additional information please refer to http://education.[facility]/faq/GGR36b9 (This link is being provided for informational/ educational purposes only.) 04/18/2024 12:1 6 PM CDT 04/18/2024 12:16 PM CDT Kunal Diana MD LAB MICROBIOLOGY - GENERAL ORDER CORINNE Final Result Performing Organization Address [facility] de Phone Number [facility] [address] [place] [address] * (ABNORMAL) Albumin Creatinine Ratio, Urine (04/18/2024 [...] ORDERABLES Final Resul t Performing Organization Address [facility] de Phone Number [facility] [address] [place] [address] * (ABNORMAL) Lipid panel (04/18/2024 12:16 PM CDT) Cholesterol 260(H) <200 mg/dL [facility] HDL 45 > OR = 40 mg/dL [email or web address] Triglycerides 942(H) <150 mg/dL [email or web address] Comment: If a non-fasting specimen was [...] Clin. Lipidol. 2015;9:129-169. LDL mg/dL (calc) [facility] Comment: LDL cholesterol not calculated. Triglyceride levels greater than 400 mg/dL invalidate calculated LDL results. Reference range: <100 Desirable range <100 mg/dL for primary prevention; ?? <70 mg/dL for patients with CHD or diabetic patients with > or = 2 CHD risk factors. LDL-C is now calculated using the Ledy calculation, which is a validated novel method providing better accuracy than the Friedewald equation in the estimation of LDL-C. Marcelo CULLEN et al. KIRA. 2013;310(19): 6233-0318 (http://education.[employer]/faq/RUX239) Chol/HDL ratio 5.8(H) <5.0 (calc) [email or web address] Non-HDL, (LDL+VLDL) 215(H) <130 mg/dL (calc) [email or web address] Comment: For patients with diabetes plus 1 major ASCVD risk factor, treating to a non-HDL-C goal of <100 mg/dL (LDL-C of <70 mg/dL) is considered a therapeutic option. Blood 04/18/2024 12:1 6 PM CDT 04/18/2024 12:16 PM CDT us Kunal Diana MD LAB BLOOD ORDERABLES Final [facility]ul [facility] [address] [place] [address] * (ABNORMAL) Comprehensive metabolic panel (04/18/2024 12:16 PM CDT) [facility] Glucose 198(H) 65 - 99 mg/dL [facility] Comment: ? Fasting reference interval For someone without known diabetes, a glucose value >125 mg/dL indicates that they may have diabetes and this should be confirmed with a follow-up test. BUN 13 7 - 25 mg/dL [facility] Creatinine 0.74 0.60 - 1.29 mg/dL [facility] eGFR 115 > OR = 60 mL/min/1.7 3m2 [facility] BUN/creat ratio SEE NOTE: (calc) [facility] Comment: ?? Not Reported: BUN and Creatinine are within ?? reference range. ? Sodium 133(L) 135 - 146 mmol/L [facility] Potassium, pl 4.3 3.5 - 5.3 mmol/L [facility] Chloride 98 98 - 110 mmol/L [facility] CO2 25 20 - 32 mmol/L [facility] Calcium 9.3 8.6 - 10.3 mg/dL [facility] Protein, sr 7.6 6.1 - 8.1 g/dL [facility] Albumin 4.4 3.6 - 5.1 g/dL [facility] GLOBULIN 3.2 1.9 - 3.7 g/dL (calc) [facility] Alb/glob ratio 1.4 1.0 - 2.5 (calc) [facility] Bilirubin, total 0.6 0.2 - 1.2 mg/dL [facility] Alk phos 55 36 - 130 U/L [facility] AST 28 10 - 40 U/L [facility] ALT (SGPT) 32 9 - 46 U/L [facility] Blood 04/18/2024 12:1 6 PM CDT 04/18/2024 12:16 PM CDT us Kunal Diana MD LAB BLOOD ORDERABLES Final Resul t [facility] [address] [place] [address] from Last 3 Months or Most Recently Relevant to Health Maintenance [place] [employer] [place] [place] Care Teams Paper Control Clerk Relationship Specialty Start Date End Date Kunal Diana MD [address] [facility] [place] [address] PCP - General Family Medicine 12/08/23
--- OUTSIDE RECORDS SUMMARY | 2024-09-25 15:13 | XMS_ITS | Encounter Summary ---
Author Organization [facility] Healthcare Address [address] [place] [address] Care Team Providers Care Assistant Professor Of Religion Name Role Phone Kunal Diana MD Primary Care Provider [phone] Encounter Details Date Type Department Care Team (Late st Contact Info) Description 09/24/2024 8:00 AM PAPER TESTING SUPERVISOR Procedure visit [facility] [address] [place] [address] Social History Tobacco Use Types Packs/Day [...] on filedocumented in this encounter Care Teams Assistant Professor Of Religion Relationship Specialty Start Date End Date Kunal Diana MD [address] [facility] [place] [address] PCP - General Family Medicine 12/08/23 documented as of this encounter
--- OUTSIDE RECORDS SUMMARY | 2024-09-25 15:13 | XMS_ITS | Encounter Summary ---
Author Organization [facility] Healthcare Address [address] [place] [address] Care Team Providers Care Base Wad Operator Adjuster Name Role Phone Kunal Diana MD Primary Care Provider [phone] Encounter Details Date Type Department Care Team (Late st Contact Info) Description 09/25/2024 8:00 AM PURCHASE PRICE ANALYST Procedure visit [facility] [address] [place] [address] Social History Tobacco Use Types Packs/Day [...] on filedocumented in this encounter Care Teams Base Wad Operator Adjuster Relationship Specialty Start Date End Date Kunal Diana MD [address] [facility] [place] [address] PCP - General Family Medicine 12/08/23 documented as of this encounter
--- OUTSIDE RECORDS SUMMARY | 2024-09-25 15:13 | XMS_ITS | Clinical Summary ---
Author Organization [facility] Address [address] [place] [address] Phone Care Team Providers Care Oilseed Meat Presser Name Role Phone Hasmukh De La Paz [...] Encounters Date Type Department Care Team Description 09/19/2024 External Device Data STL ABSTRACTION Provider, Abstract 09/13/2024 External Device Data [facility] ABSTRACTION Provider, Abstract 08/07/2024 External Device Data [facility] ABSTRACTION Provider, Abstract 08/06/2024 9:30 AM PUBLIC HEALTH AIDE Ancillary Procedure [address] [address] [place], External Provider Diabetic foot ulcer with osteomyelitis (CMS/HCC) from Last 3 Months Immunizations Immunization Administration [...] on file Legal Sex Male 10:28 AM PUBLIC HEALTH AIDE Gender Identity Not on file Sexual Orientation Not on file Last Filed Vital Signs Vital Sign Reading Time Taken Comments Blood Pressure 134/86 08/10/2013 8:06 AM PUBLIC HEALTH AIDE Pulse 76 08/10/2013 8:06 AM PUBLIC HEALTH AIDE Temperature 37.1 ??C (98.8 ??F) 08/10/2013 8 :06 AM PUBLIC HEALTH AIDE pt took tylenol this morning Respiratory Rate 16 08/10/2013 8:06 AM PUBLIC HEALTH AIDE Oxygen Saturation 97% 08/10/2013 8:0 6 AM PUBLIC HEALTH AIDE Inhaled Oxygen Concentration - - Weight 170.1 kg (375 lb) 08/10/2013 8:0 6 AM PUBLIC HEALTH AIDE Height 180.3 cm (5' 11 ) 08/10/2013 8:0 6 AM PUBLIC HEALTH AIDE Body Mass Index 52.3 08/10/2013 8:06 AM PUBLIC HEALTH AIDE Plan of Treatment Health Maintenance Due Date Last Done Comments DIABETES ANNUAL FOOT EXAM 1998 DIABETES ANNUAL RETINAL EXAM 1998 DIABETES MICROALBUMIN ANNUAL SCREEN 1998 LDL CHOLESTEROL ANNUAL 1998 HEPATITIS B VACCINES (1 of 3 - 19+ 3-dose series) 1999 INFLUENZA VACCINE (#1) 2024 COVID-19 Vaccine ( season) 2024 10/20/2020, 09/26/2020 Preventative Visit- Commercial 08/22/2024 12/08/2023 DIABETES HBA1C Q 6 MONTHS 09/22/2024 03/22/2024 DTAP/TDAP/TD VACCINES (6 - Td or Tdap) 03/26/2031 03/26/2021, 01/18/2012, 06/24/1986, Additional history exists HPV VACCINES Aged Out No longer eligi ble based on patient's age to complete this topic Procedures Procedure Name Priority Date/Time Associated Diagnosis Comments MRI FOOT WO CONTRAST LEFT Routine 08/06/2024 10:03 AM PUBLIC HEALTH AIDE Diabetic foot ulcer with osteomyelitis (CMS/HCC) from Last 3 Months Results * MRI FOOT WO CONTRAST LEFT (08/06/2024 10:03 AM PUBLIC HEALTH AIDE) Anatomical Region Laterality Modality Ankle / Foot Magnetic Resonan ce 08/06/2024 10:0 4 AM PUBLIC HEALTH AIDE Impressions 08/06/2024 10:10 AM PUBLIC HEALTH AIDE IMPRESSION: ?? 1. Probable soft tissue ulcer over the fifth metatarsal head with associated edema in involving the interosseous muscles of the fourth and fifth metatarsals. There is also some edema apparent in the fifth proximal phalanx. Osteomyelitis cannot be excluded. Narrative 08/06/2024 10:10 AM PUBLIC HEALTH AIDE EXAM: MRI FOOT WO CONTRAST LEFT DATE: [...] from Last 3 Months Insurance [place] ANGULO [id number] Care Teams Oilseed Meat Presser Relationship Specialty Start [place] [id number] [phone] PCP - General Internal Medicine 07/24/12
[2024-09-25 19:15] LABS: Hematocrit 41.2 % (42.0-52.0); Hemoglobin 14.2 g/dL (14.0-18.0); Mean Corpuscular HGB Conc 34.5 g/dl (32-36); Mean Corpuscular Hemoglobin 29.7 pg (26-34); Mean Corpuscular Volume 86.2 fl (80-100); Mean Platelet Volume 11.5 fl (7.4-10.4); Platelet Count Result 185 k/mm3 (150-375); Red Blood Count 4.78 M/mm3 (4.6-6.20); Red Cell Distribution Width 13.3 % (11.5-14.5); White Blood Count 8.8 K/mm3 (4.5-10.0)
[2024-09-25 19:21] LABS: Alanine Aminotransferase 30 U/L (6-50); Albumin Level 4.1 g/dL (3.5-5.1); Alkaline Phosphatase 59 U/L (38-126); Anion Gap 7 mmol/L (4-12); Aspartate Amino Transferase 51 U/L (17-59); Bilirubin,Total 0.5 mg/dL (0.2-1.3); Blood Urea Nitrogen 15 mg/dL (9-20); CRP < 0.5 mg/dL (<1.0); Calcium 9.8 mg/dL (8.4-10.2); Carbon Dioxide 29 mmol/L (22-30); Chloride 100 mmol/L (98-107); Estimated Glomerular Filt Rate > 60; Glucose 85 mg/dL (65-110); Potassium 4.3 mmol/L (3.4-5.0); Sodium 136 mmol/L (137-145)
[2024-09-25 19:53] LABS: Erythrocyte Sedimentation Rate 20 mm/hr (0-20)
== END 2024-09-25 15:04 | disposition home or self-care (01) ==
PROVIDERS: PCP Internal Medicine
DX: L97.522 Non-pressure chronic ulcer of other part of left foot with fat layer exposed (principal)
CPT/HCPCS: 80053; 85027; 85652; 86140

== ENCOUNTER 2024-10-02 13:10 | Outpatient (NON) | payer BC, SELFPAY ==
--- OUTSIDE RECORDS SUMMARY | 2024-10-02 14:00 | XMS_ITS | Referral Summary ---
Author Organization [facility] Address [id number] [place] [phone] Care Team Providers Care Shot Coat Tender Name Role Phone Kunal Diana MD Primary Care Provider [phone] Encounters Date Type Department Care Team Description 10/02/2024 8:00 AM JOB SETTER Procedure visit [address] [address] 10/01/2024 Telephone [facility] Medical [facility] Primary Care at [address] [phone] Kunal Diana MD Call Back 10/01/2024 8:00 AM JOB SETTER Procedure visit [facility] [address] [place] [address] 09/28/2024 8:00 AM JOB SETTER Procedure visit [address] [address] 09/27/2024 Orders Only [facility] Medical Group Primary Care at [address] [phone] Kunal Diana MD 09/27/2024 10:00 AM JOB SETTER Orders Only [address] [address] 09/27/2024 8:00 AM JOB SETTER Procedure visit [address] [address] 09/26/2024 Telephone [facility] Medical [facility] Primary Care at [address] [phone] Kunal Diana MD Med Refill 09/26/2024 8:00 AM JOB SETTER Procedure visit [address] [address] 09/25/2024 8:00 AM JOB SETTER Procedure visit [address] [address] 09/24/2024 8:00 AM JOB SETTER Procedure visit [address] [address] 09/21/2024 10:00 AM JOB SETTER Orders Only [address] [address] 09/21/2024 8:00 AM JOB SETTER Procedure visit [address] [address] 09/20/2024 10:00 AM JOB SETTER Orders Only [address] [address] 09/20/2024 8:00 AM JOB SETTER Procedure visit [address] [address] 09/19/2024 8:00 AM JOB SETTER Procedure visit [address] [address] 09/18/2024 8:00 AM JOB SETTER Procedure visit [address] [address] 09/17/2024 Orders Only [facility] Medical Group Primary Care at [address] [place] [phone] Kunal Diana MD 09/17/2024 10:00 AM JOB SETTER Orders Only [address] [address] 09/17/2024 8:00 AM JOB SETTER Procedure visit [address] [address] 09/14/2024 8:00 AM JOB SETTER Procedure visit [address] [address] 09/13/2024 8:00 AM JOB SETTER Procedure visit [facility] [address] [place] [address] 09/13/2024 10:00 AM JOB SETTER Orders Only [facility] [address] [place] [address] 09/12/2024 8:00 AM JOB SETTER Procedure visit [facility] [address] [place] [address] 09/11/2024 7:51 AM JOB SETTER - 09/11/2024 11:59 PM JOB SETTER Hospital Encounter [facility] Imaging and Radiology [address] [place] [address] 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) Discharge Disposition: Discharge to home or self care 09/10/2024 Telephone [facility] [address] [place] [address] Vincent Reed MD 09/06/2024 8:45 AM JOB SETTER Orders Only [facility] [address] [place] [address] 08/23/2024 10:27 AM JOB SETTER - 08/23/2024 11:59 PM JOB SETTER Hospital Encounter [facility] Diagnostic Imaging [address] [place] [address] Acute osteomyelitis of metatarsal bone of left foot (HCC) Discharge Disposition: Discharge to home or self care 08/23/2024 10:28 AM JOB SETTER - 08/23/2024 11:59 PM JOB SETTER Hospital Encounter [facility] [address] [place] [phone] Acute osteomyelitis of metatarsal bone of left foot (HCC) Discharge Disposition: Discharge to home or self care 08/23/2024 Orders Only [facility] [address] [place] [address] Sharon Aguirre NP Acute osteomyelitis of metatarsal bone of left foot (HCC) (Primary Dx) 08/23/2024 8:45 AM JOB SETTER Orders Only [facility] [address] [place] [address] 08/16/2024 9:00 AM JOB SETTER Office Visit [facility] Medical Group Primary Care at [address] [place] [address] Kunal Diana MD Type 2 diabetes mellitus with hyperlipidemia (HCC) (Primary Dx); Class 3 severe obesity due to excess calories with serious comorbidity and body mass index (BMI) of 40.0 to 44.9 in adult (HCC); Morbid (severe) obesity due to excess calories (HCC); Type 2 diabetes mellitus with hyperglycemia, without long-term current use of insulin (HCC) 08/13/2024 Orders Only [facility] [address] [facility] [address], [place] [phone] Sharon Aguirre NP Other acute osteomyelitis of left foot (HCC) (Primary Dx); Type 2 diabetes mellitus with foot ulcer (CODE) (HCC) 08/09/2024 6:28 PM JOB SETTER - 08/09/2024 11:59 PM JOB SETTER Hospital Encounter [facility] [address] [place] [address] Diagnosis unknown Discharge Disposition: Discharge to home or self care 08/09/2024 Orders Only [facility] [address] [place] [address] Sharon Aguirre NP Diabetic ulcer of toe of left foot associated with type 2 diabetes mellitus, with fat layer exposed (HCC) (Primary Dx) 08/09/2024 8:45 AM JOB SETTER Orders Only [facility] [address] [place] [address] 08/02/2024 Orders Only [facility] [address] [place] [address] Sharon Aguirre NP 07/26/2024 9:10 AM JOB SETTER - 07/26/2024 11:59 PM JOB SETTER Hospital Encounter [address] [address] Diabetic ulcer of toe of left foot associated with type 2 diabetes mellitus, with fat layer exposed (HCC) Discharge Disposition: Discharge to home or self care 07/26/2024 Orders Only [facility] [address] [place] [address] Sharon Aguirre, RODRIGO Diabetic ulcer of toe [...] 6 mL 1 09/17/19 25 025 Active fluconazole (DIFLUCAN) 200 mg tablet Take 1 tablet (200 mg total) by mouth as needed (yeast infection) 3 tablet 09/27/19 25 Active tirzepatide (Mounjaro) 5 mg/0.5 mL pen [...] hyperlipidemia Assessment & Plan (08/16/2024 9:07 AM JOB SETTER): Lab Results Component Value Date HGBA1C 9.3 [...] 12/08/2023 Assessment & Plan (08/16/2024 9:01 AM JOB SETTER): Wt Readings from Last 3 Encounters: 08/16/24 (!) 137.4 kg (303 lb) 04/02/24 131.6 kg (290 lb 1.6 oz) 03/22/24 133 kg (293 lb 3.2 oz) BMI Readings from Last 3 Encounters: 08/16/24 43.48 kg/m 04/02/24 41.63 kg/m 03/22/24 42.07 kg/m Not at goal of bmi <30 Continue diet and exercise BMI Follow-up includes: nutrition counseling and exercise counseling. Assessment & Plan (04/02/2024 10:06 AM CDT): Wt Readings from Last 3 Encounters: 04/02/24 131.6 kg (290 lb 1.6 oz) 03/22/24 133 kg (293 lb 3.2 oz) 12/08/23 132.1 kg (291 lb 4.8 oz) BMI Readings from Last 3 Encounters: 04/02/24 41.63 kg/m 03/22/24 42.07 kg/m 12/08/23 41.80 kg/m Not at goal of bmi <30 Continue diet and exercise BMI Follow-up includes: nutrition counseling and exercise counseling. Assessment & Plan (03/22/2024 12:54 PM CDT): Wt Readings from Last 3 Encounters: 03/22/24 133 kg (293 lb 3.2 oz) 12/08/23 132.1 kg (291 lb 4.8 oz) 03/26/21 (!) 142.9 kg (315 lb) BMI Readings from Last 3 Encounters: 03/22/24 42.07 kg/m 12/08/23 41.80 kg/m 03/26/21 43.93 kg/m Not at goal of bmi <30 Continue diet and exercise BMI Follow-up includes: nutrition counseling and exercise counseling. Assessment & Plan (12/08/2023 3:07 PM CDT): Wt Readings from Last 3 Encounters: 12/08/23 132.1 kg (291 lb 4.8 oz) 03/26/21 (!) 142.9 kg (315 lb) BMI Readings from Last 3 Encounters: 12/08/23 41.80 kg/m 03/26/21 43.93 kg/m Not at goal of bmi <30 Continue diet and exercise BMI Follow-up includes: nutrition counseling and exercise counseling. Class 3 severe obesity due t o excess calories with serious comorbidity and body mass index (BMI) of 40.0 to 44.9 in adult 12/08/2023 Assessment & Plan (08/16/2024 9:01 AM JOB SETTER): Wt Readings from Last 3 Encounters: 08/16/24 (!) 137.4 kg (303 lb) 04/02/24 131.6 kg (290 lb 1.6 oz) 03/22/24 133 kg (293 lb 3.2 oz) BMI Readings from Last 3 Encounters: 08/16/24 43.48 kg/m 04/02/24 41.63 kg/m 03/22/24 42.07 kg/m Not at goal of bmi <30 Continue diet and exercise BMI Follow-up includes: nutrition counseling and exercise counseling. Assessment & Plan (04/02/2024 10:06 AM CDT): Wt Readings from Last 3 Encounters: 04/02/24 131.6 kg (290 lb 1.6 oz) 03/22/24 133 kg (293 lb 3.2 oz) 12/08/23 132.1 kg (291 lb 4.8 oz) BMI Readings from Last 3 Encounters: 04/02/24 41.63 kg/m 03/22/24 42.07 kg/m 12/08/23 41.80 kg/m Not at goal of bmi <30 Continue diet and exercise BMI Follow-up includes: nutrition counseling and exercise counseling. Assessment & Plan (03/22/2024 12:54 PM CDT): Wt Readings from Last 3 Encounters: 03/22/24 133 kg (293 lb 3.2 oz) 12/08/23 132.1 kg (291 lb 4.8 oz) 03/26/21 (!) 142.9 kg (315 lb) BMI Readings from Last 3 Encounters: 03/22/24 42.07 kg/m 12/08/23 41.80 kg/m 03/26/21 43.93 kg/m Not at goal of bmi <30 Continue diet and exercise BMI Follow-up includes: nutrition counseling and exercise counseling. Assessment & Plan (12/08/2023 3:07 PM CDT): Wt Readings from Last 3 Encounters: 12/08/23 132.1 kg (291 lb 4.8 oz) 03/26/21 (!) 142.9 kg (315 lb) BMI Readings from Last 3 Encounters: 12/08/23 41.80 kg/m 03/26/21 43.93 kg/m Not at goal of bmi <30 Continue [...] Comments Blood Pressure 120/86 08/16/2024 8:45 AM JOB SETTER Pulse 77 08/16/2024 8:45 AM JOB SETTER Temperature 36.4 C (97.5 F) 03/22/2024 12:37 PM CDT Respiratory Rate 16 08/16/2024 8:45 AM JOB SETTER Oxygen Saturation 98% 08/16/2024 8:45 AM JOB SETTER Inhaled Oxygen Concentration - - Weight 137.4 kg (303 lb) 08/16/2024 8:45 AM JOB SETTER Height 177.8 cm (5' 10 ) 08/16/2024 8:45 AM JOB SETTER Body Mass Index 43.48 08/16/2024 8:45 AM JOB SETTER Plan of Treatment Not on file Procedures Procedure Name Priority Date/Time Associated Diagnosis Comments POCT GLUCOSE DEVICE Routine 09/12/2024 8 :11 AM JOB SETTER IR PICC LINE PLACEMENT > 5 YEARS Schedule Routine, Read Routine (OP Routine) 09/11/2024 9:12 AM JOB SETTER 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) ECG 12-LEAD Routine 08/23/2024 11:00 AM JOB SETTER Acute osteomyelitis of metatarsal bone of left foot (HCC) XR CHEST PA LATERAL 2 VIEWS Schedule Routine, Read Routine (OP Routine) 08/23/2024 10:53 AM JOB SETTER Acute osteomyelitis of metatarsal bone of left foot (HCC) POCT HEMOGLOBIN A1C Routine 08/16/2024 8 :55 AM JOB SETTER Type 2 diabetes mellitus with hyperlipidemia (HCC) JUSTYN MR OUTSIDE CONSULT Routine 08/09/2024 6:28 PM JOB SETTER Diagnosis unknown AEROBIC AND ANAEROBIC CULTURE AND GRAM STAIN Routine 07/26/2024 9:10 AM JOB SETTER Diabetic ulcer of toe of left foot [...] * (ABNORMAL) POCT glucose (09/12/2024 8:11 AM JOB SETTER) Glucose, POC 217(H) 70 - 199 mg/dL Blood 09/12/2024 8:11 AM JOB SETTER 09/12/2024 8:11 AM JOB SETTER us Meng Messina MD LAB POCT ORDERABLES - RIVERA CE Final Result [facility] [address] Department [place] [address] * IR PICC Line Placement Over 5 Years of Age (09/11/2024 9:12 AM JOB SETTER) Anatomical Region Laterality Modality Body N/A X-Ray Angiograph y 09/11/2024 10:0 3 AM JOB SETTER Impressions 09/11/2024 10:03 AM JOB SETTER Successful PICC placement using ultrasound guidance. Electronically signed by: Hieu Capone M.D. Narrative 09/11/2024 10:03 AM JOB SETTER EXAMINATION: IR PICC LINE PLACEMENT OVER 5 [...] After dilating the tract, a 45 cm, 5-Kosovan dual-lumen PICC was inserted through the peel-away [...] After dilating the tract, a 45 cm, 5-Kosovan dual-lumen PICC was inserted through the peel-away [...] * ECG 12 lead (08/23/2024 11:00 AM JOB SETTER) 08/23/2024 10:4 8 AM JOB SETTER Narrative [facility] - 08/23/2024 3:30 PM JOB SETTER Vent Rate: 68 bpm RR Interval: 882 msec ME Interval: 160 msec QRS Duration: 102 msec QT Interval: 352 msec QTC Interval: 368 msec P-R-T [place]: 21 - 49 - 26 degrees IMPRESSION: SINUS RHYTHM NORMAL ECG Electronically Signed By: Dr. Braulio Winter Sharon Aguirre NP ECG ORDERABLES Fin al Result [facility] * X-ray chest 2 views (08/23/2024 10:53 AM JOB SETTER) Anatomical Region Laterality Modality Body, Chest N/A Computed Radiogr aphy 08/23/2024 10:5 9 AM JOB SETTER Impressions 08/23/2024 10:59 AM JOB SETTER Normal study. Electronically signed by: Leo Price M.D. Narrative 08/23/2024 10:59 AM JOB SETTER EXAMINATION: XR CHEST PA LATERAL 2 VIEWS [...] signed by: Leo Price M.D. Sharon Aguirre LATHE MECHANIC IMG XR PROCEDURES F inal Result * (ABNORMAL) POCT hemoglobin A1c (08/16/2024 8:55 AM JOB SETTER) Hemoglobin A1C, POC 9.3 4.0 - 5.6 % Capillary blood 08/16/2024 8 :55 AM JOB SETTER Kunal Diana MD POINT OF CARE TEST ORDERABLES Fi nal Result * MSK MR Outside Consult (08/09/2024 6:28 PM JOB SETTER) Anatomical Region Laterality Modality N/A Magnetic Resonan ce 08/10/2024 10:3 0 AM JOB SETTER Impressions 08/10/2024 1:17 PM JOB SETTER Soft tissue defect/ulceration lateral to the 5th [...] images may or may not represent the [place] source data set and thus may contain changes that may lower the accuracy of this second-opinion interpretation. Dictated by: Charley Galvan MD, PhD The radiology attending physician has personally reviewed this study, and had reviewed and/or edited this written report and agrees with it. Electronically signed by: Turner Mir MD Narrative 08/10/2024 1:17 PM JOB SETTER EXAMINATION: RADIOLOGY CONSULTATION ON OUTSIDE IMAGING STUDY STUDY INITIALLY PERFORMED: 08/06/2024 at [facility]. TYPE OF STUDY: Multiple MR [...] IMAGING STUDY STUDY INITIALLY PERFORMED: 08/06/2024 at [facility]. TYPE OF STUDY: Multiple MR [...] images may or may not represent the [place] source data set and thus may contain changes that may lower the accuracy of this second-opinion interpretation. Dictated by: Charley Galvan MD, PhD The radiology attending physician has personally reviewed this study, and had reviewed and/or edited this written report and agrees with it. Electronically signed by: Turner Mir MD us Meng Messina MD IM MRI PROCEDURES Final R esult * (ABNORMAL) Aerobic and anaerobic culture and gram stain Wound Foot, left (07/26/2024 9:10 AM JOB SETTER) Direct Specimen Exam Stain: Few polymorphonuclear leukocytes seen. Moderate Gram Positive Cocci Comment:Testing performed by : [facility], [address] [place] [address]., [id number] Report Final Report: Moderate Streptococcus agalactiae (Group B Streptococci) * * * * * * * * * * * * * * * * * * * * Resistance to penicillin in Group B Streptococcus has not been reported. Group B Streptococci are universally susceptible to beta-lactam antibiotics and vancomycin. Routine susceptibility testing is not performed. In penicillin allergic patients, please contact the laboratory at [phone] to request susceptibility testing * * * * * * * * * * * * * * * * * * * * Few Staphylococcus aureus Methicillin susceptible (MSSA) by penicillin binding protein 2a (PBP2a) testing. Few Mixed microorganisms. (.) GARY Comment:Testing performed by : [facility], [address] [place] [address]., [id number] Organism STREPTOCOCCUS AGALACTIAE (GROUP B STREPTOCOCCI) CERNER Organism STAPHYLOCOCCUS [facility] Organism MIXED MICROORGANISMS. GARY Wound (Foot, left) 07/26/2024 9:10 AM JOB SETTER 07/26/2024 4:18 PM JOB SETTER Narrative GARY SULLIVAN - 07/30/2024 1:43 PM JOB SETTER Specimen received on an ESwab. Testing performed by [facility] Microbiology Laboratory ([phone]) Specimens submitted from normally sterile body sites [...] LAB MICROBIOLOGY - GENERAL ORDERABLES Final Result Performing Organization Address City/[facility]/ZIP Co de Phone Number GARY [address] Department [place] [address] * Hepatitis C antibody (04/18/2024 12:16 PM CDT) Hep C Ab NON-REACTI VE NON-REACT CHANDRAKANT [facility] Comment: HCV antibody was non-reactive. There is no laboratory evidence of HCV infection. In most cases, no further action is required. However, if recent HCV exposure is suspected, a test for HCV RNA (test code 55619) is suggested. For additional information please refer to http://education.[employer].Bioenvision/faq/RVW12a8 (This link is being provided for informational/ educational purposes only.) 04/18/2024 12:1 6 PM CDT 04/18/2024 12:16 PM CDT Kunal Diana MD LAB MICROBIOLOGY - GENERAL ORDER CORINNE Final Result [facility] [address] [place] [address] * (ABNORMAL) Albumin Creatinine Ratio, Urine (04/18/2024 12:16 PM CDT) Creatinine, ur 169 20 - 320 mg/dL [facility] Microalbumin, ur 43.1 See Note: mg/dL [facility] Comment: Reference Range: Reference Range Not established Microalbumin/creat ratio 255(H) <30 mg/g creat [facility] Comment: The ADA defines abnormalities in albumin excretion as follows: Albuminuria Category Result (mg/g creatinine) Normal to Mildly increased <30 Moderately increased 30-299 Severely increased > OR = 300 The ADA recommends that at least two of three specimens collected within a 3-6 month period be abnormal before considering a patient to be within a diagnostic category. Urine 04/18/2024 12:1 6 PM CDT 04/18/2024 12:16 PM CDT Kunal Diana MD LAB URINE ORDERABLES Final Resul t [facility] [address] [place] [address] * (ABNORMAL) Lipid panel (04/18/2024 12:16 PM CDT) Pathologist [facility] Cholesterol 260(H) <200 mg/dL [facility] HDL 45 > OR = 40 mg/dL [facility] Triglycerides 942(H) <150 mg/dL [facility] Comment: If a non-fasting specimen was collected, consider repeat triglyceride testing on a fasting specimen if clinically indicated. Jose et al. J. of Clin. Lipidol. 2015;9:129-169. There is increased risk of pancreatitis when the triglyceride concentration is very high (> or = 500 mg/dL, especially if > or = 1000 mg/dL). Rebeca et al. J. of Clin. Lipidol. 2015;9:129-169. LDL mg/dL (calc) [facility] Comment: LDL cholesterol not calculated. Triglyceride levels greater than 400 mg/dL invalidate calculated LDL results. Reference range: <100 Desirable range <100 mg/dL for primary prevention; <70 mg/dL for patients with CHD or diabetic patients with > or = 2 CHD risk factors. LDL-C is now calculated using the Ledy calculation, which is a validated novel method providing better accuracy than the Friedewald equation in the estimation of LDL-C. Marcelo CULLEN et al. KIRA. 2013;310(19): 1538-2267 (http://education.Sky Level Enterprieses/faq/KSP012) Chol/HDL ratio 5.8(H) <5.0 (calc) [facility] Non-HDL, (LDL+VLDL) 215(H) <130 mg/dL (calc) [facility] Comment: For patients with diabetes plus 1 major ASCVD risk factor, treating to a non-HDL-C goal of <100 mg/dL (LDL-C of <70 mg/dL) is considered a therapeutic option. Blood 04/18/2024 12:1 6 PM CDT 04/18/2024 12:16 PM CDT us Kunal Diana MD LAB BLOOD ORDERABLES Final Resul t [facility] [address] [place] [address] * (ABNORMAL) Comprehensive metabolic panel (04/18/2024 12:16 PM CDT) Glucose 198(H) 65 - 99 mg/dL [facility] Comment: Fasting reference interval For someone without known diabetes, a glucose value >125 mg/dL indicates that they may have diabetes and this should be confirmed with a follow-up test. BUN 13 7 - 25 mg/dL [facility] Creatinine 0.74 0.60 - 1.29 mg/dL [facility] eGFR 115 > OR = 60 mL/min/1.7 3m2 [facility] BUN/creat ratio SEE NOTE: 6 - (calc) [facility] Comment: Not Reported: BUN and Creatinine are within reference range. Sodium 133(L) 135 - 146 mmol/L [facility] Potassium, pl 4.3 3.5 - 5.3 mmol/L [facility] Chloride 98 98 - 110 mmol/L [facility] CO2 25 20 - 32 mmol/L [facility] Calcium 9.3 8.6 - 10.3 mg/dL [facility] Protein, sr 7.6 6.1 - 8.1 g/dL [facility] Albumin 4.4 3.6 - 5.1 g/dL [facility] GLOBULIN 3.2 1.9 - 3.7 g/dL (calc) [facility] Alb/glob ratio 1.4 1.0 - 2.5 (calc) [facility] Bilirubin, total 0.6 0.2 - 1.2 mg/dL [facility] Alk phos 55 36 - 130 U/L [facility] AST 28 10 - 40 U/L [facility] ALT (SGPT) 32 9 - 46 U/L [facility] Blood 04/18/2024 12:1 6 PM CDT 04/18/2024 12:16 PM CDT us Kunal Diana MD LAB BLOOD ORDERABLES Final Resul t [facility] [address] [place] [address] from Last 3 Months or Most Recently Relevant to Health Maintenance Insurance [facility] Care Teams Shot Coat Tender Relationship Specialty Start Date End Date Kunal Diana MD [address] [place] [address] [place] [address] PCP - General Family Medicine 12/08/23
--- OUTSIDE RECORDS SUMMARY | 2024-10-02 14:00 | XMS_ITS | Encounter Summary ---
Author Organization [facility] Healthcare Address [address] [place] [address] Care Team Providers Care Washery Engineer Name Role Phone Kunal Diana MD Primary Care Provider [phone] Encounter Details Date Type Department Care Team (Late st Contact Info) Description 10/01/2024 8:00 AM NURSE STAFF [facility] Procedure visit [facility] [address] [place] [id number] Social History Tobacco Use Types Packs/Day [...] on filedocumented in this encounter Care Teams Washery Engineer Relationship Specialty Start Date End Date Kunal Diana MD [address] [facility] [place] [address] PCP - General Family Medicine 12/08/23 documented as of this encounter
--- OUTSIDE RECORDS SUMMARY | 2024-10-02 14:00 | XMS_ITS | Encounter Summary ---
Author Organization [facility] Healthcare Address [address] [place] [address] Care Team Providers Care Manager Water Wastewater Name Role Phone Kunal Diana MD Primary Care Provider [phone] Encounter Details Date Type Department Care Team (Late st Contact Info) Description 10/02/2024 8:00 AM MANHOLE STRIPPER Procedure visit [facility] [address] [place] [address] Social History Tobacco Use Types Packs/Day [...] on filedocumented in this encounter Care Teams Manager Water Wastewater Relationship Specialty Start Date End Date Kunal Diana MD [address] [facility] [place] [address] PCP - General Family Medicine 12/08/23 documented as of this encounter
--- OUTSIDE RECORDS SUMMARY | 2024-10-02 14:00 | XMS_ITS | Clinical Summary ---
Author Organization [facility] Address [address] [place] [address] Phone Care Team Providers Care Engine Repairer Production Name Role Phone Hasmukh De La Paz [...] Date Type Department Care Team Description 09/25/2024 External Device Data [facility] ABSTRACTION Provider, Abstract 09/19/2024 External Device Data [facility] ABSTRACTION Provider, Abstract 09/13/2024 External Device Data [facility] ABSTRACTION Provider, Abstract 08/07/2024 External Device Data [facility] ABSTRACTION Provider, Abstract 08/06/2024 9:30 AM SENIOR MANAGING DIRECTOR Ancillary Procedure [facility] [address] [address] [place], External Provider Diabetic foot ulcer with [...] on file Legal Sex Male 10:28 AM SENIOR MANAGING DIRECTOR Gender Identity Not on file Sexual Orientation Not on file Last Filed Vital Signs Vital Sign Reading Time Taken Comments Blood Pressure 134/86 08/10/2013 8:06 AM SENIOR MANAGING DIRECTOR Pulse 76 08/10/2013 8:06 AM SENIOR MANAGING DIRECTOR Temperature 37.1 C (98.8 F) 08/10/2013 8:06 AM SENIOR MANAGING DIRECTOR pt took tylenol this morning Respiratory Rate 16 08/10/2013 8:06 AM SENIOR MANAGING DIRECTOR Oxygen Saturation 97% 08/10/2013 8:0 6 AM SENIOR MANAGING DIRECTOR Inhaled Oxygen Concentration - - Weight 170.1 kg (375 lb) 08/10/2013 8:0 6 AM SENIOR MANAGING DIRECTOR Height 180.3 cm (5' 11 ) 08/10/2013 8:0 6 AM SENIOR MANAGING DIRECTOR Body Mass Index 52.3 08/10/2013 8:06 AM SENIOR MANAGING DIRECTOR Plan of Treatment Health Maintenance Due Date [...] WO CONTRAST LEFT Routine 08/06/2024 10:03 AM SENIOR MANAGING DIRECTOR Diabetic foot ulcer with osteomyelitis (CMS/HCC) from Last 3 Months Results * MRI FOOT WO CONTRAST LEFT (08/06/2024 10:03 AM SENIOR MANAGING DIRECTOR) Anatomical Region Laterality Modality Ankle / Foot Magnetic Resonan ce 08/06/2024 10:0 4 AM SENIOR MANAGING DIRECTOR Impressions 08/06/2024 10:10 AM SENIOR MANAGING DIRECTOR IMPRESSION: 1. Probable soft tissue ulcer over the fifth metatarsal head with associated edema in involving the interosseous muscles of the fourth and fifth metatarsals. There is also some edema apparent in the fifth proximal phalanx. Osteomyelitis cannot be excluded. Narrative 08/06/2024 10:10 AM SENIOR MANAGING DIRECTOR EXAM: MRI FOOT WO CONTRAST LEFT DATE: [...] from Last 3 Months Insurance JACKELYN ANGULO [id number] Care Teams Engine Repairer Production Relationship Specialty Start [place] [address] [phone] PCP - General Internal Medicine 07/24/12
--- OUTSIDE RECORDS SUMMARY | 2024-10-02 14:00 | XMS_ITS | Encounter Summary ---
Author Organization [facility] Healthcare Address [address] [place] [address] Care Team Providers Care Wound Treatment Rn Name Role Phone Kunal Diana MD Primary Care Provider [phone] Reason for Visit * Reason Onset Date Comments Call Back 10/01/2024 Encounter Details Date Type Department Care Team (Late st Contact Info) Description 10/01/[address] [facility] Medical Group Primary Care at [address] [address] Kunal Diana MD [address] [place] [address] Call Back Social History Tobacco Use Types Packs/Day Years [...] on file documented as of this encounter Miscellaneous Notes * Telephone Encounter - Soni Jurado - 10/01/2024 3:02 PM CST Call Back Caller???s Concern: Pharmacy needs additional information on the fluconazole (DIFLUCAN) 200 mg tablet Do they take this once per day or once every three days? Please call the pharmacy back Does message need to be routed? Yes-Action Needed PAIN MANAGEMENT documented in this encounter Plan of Treatment Not on file documented as of this encounter Visit Diagnoses Not on filedocumented in this encounter Care Teams Wound Treatment Rn Relationship Specialty Start Date End Date Kunal Diana MD [address] [facility] [address]FF [address] [place] [address] PCP - General Family Medicine 12/08/23 documented as of this encounter
--- OUTSIDE RECORDS SUMMARY | 2024-10-02 14:00 | XMS_ITS | Clinical Summary ---
Author Organization [facility] Address [address] [place] [address] Care Team Providers Care Network Lead Name Role Phone Kunal Diana MD Primary Care Provider Allergies No known active allergies Medications metFORMIN [...] hyperlipidemia Assessment & Plan (08/16/2024 9:07 AM RING ATTACHER): Lab Results Component Value Date HGBA1C 9.3 [...] 12/08/2023 Assessment & Plan (08/16/2024 9:01 AM RING ATTACHER): Wt Readings from Last 3 Encounters: 08/16/24 [...] 12/08/2023 Assessment & Plan (08/16/2024 9:01 AM RING ATTACHER): Wt Readings from Last 3 Encounters: 08/16/24 [...] Department Care Team Description 10/02/2024 8:00 AM RING ATTACHER Procedure visit [facility] [address] [place] [address] 10/01/2024 8:00 AM RING ATTACHER Procedure visit [address] [address] 10/01/2024 Telephone [facility] Medical Group Primary Care at [address] [place] [address] Kunal Diana MD Call Back 09/28/2024 8:00 AM RING ATTACHER Procedure visit [facility] [address] [place] [address] 09/27/2024 10:00 AM RING ATTACHER Orders Only [facility] [address] [place] [address] 09/27/2024 8:00 AM RING ATTACHER Procedure visit [address] [address] 09/27/2024 Orders Only [facility] Primary Care at [address] [place] [phone] Kunal Diana MD 09/26/2024 8:00 AM RING ATTACHER Procedure visit [address] [address] 09/26/2024 Telephone [facility] Primary Care at [address] [phone] Kunal Diana MD Med Refill 09/25/2024 8:00 AM RING ATTACHER Procedure visit [address] [address] 09/24/2024 8:00 AM RING ATTACHER Procedure visit [address] [address] 09/21/2024 10:00 AM RING ATTACHER Orders Only [facility] [address] [place] [address] 09/21/2024 8:00 AM RING ATTACHER Procedure visit [facility] [address] [place] [address] 09/20/2024 10:00 AM RING ATTACHER Orders Only [facility] [address] [place] [address] 09/20/2024 8:00 AM RING ATTACHER Procedure visit [address] [address] 09/19/2024 8:00 AM RING ATTACHER Procedure visit [facility] [address] [place] [address] 09/18/2024 8:00 AM RING ATTACHER Procedure visit [facility] [address] [place] [address] 09/17/2024 10:00 AM RING ATTACHER Orders Only [facility] [address] [place] [address] 09/17/2024 8:00 AM RING ATTACHER Procedure visit [address] [address] 09/17/2024 Orders Only [facility] Primary Care at [address] [place] [phone] Kunal Diana MD 09/14/2024 8:00 AM RING ATTACHER Procedure visit [facility] [address] [place] [address] 09/13/2024 10:00 AM RING ATTACHER Orders Only [facility] [address] [place] [address] 09/13/2024 8:00 AM RING ATTACHER Procedure visit [facility] [address] [address] 09/12/2024 8:00 AM RING ATTACHER Procedure visit [facility] [address] [place] [address] 09/11/2024 7:51 AM RING ATTACHER - 09/11/2024 11:59 PM RING ATTACHER Hospital Encounter [facility] [address] [place] [address] 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) Discharge Disposition: Discharge to home or self care 09/10/2024 Telephone [facility] [address] [place] [address] Vincent Reed MD 09/06/2024 8:45 AM RING ATTACHER Orders Only [facility] [address] [place] [address] 08/23/2024 10:28 AM RING ATTACHER - 08/23/2024 11:59 PM RING ATTACHER Hospital Encounter [facility] [address] [place] [address] Acute osteomyelitis of metatarsal bone of left foot (HCC) Discharge Disposition: Discharge to home or self care 08/23/2024 10:27 AM RING ATTACHER - 08/23/2024 11:59 PM RING ATTACHER Hospital Encounter [facility] Diagnostic Imaging [address] [place] [address] Acute osteomyelitis of metatarsal bone of left foot (HCC) Discharge Disposition: Discharge to home or self care 08/23/2024 8:45 AM RING ATTACHER Orders Only [facility] [address] [place] [address] 08/23/2024 Orders Only [facility] [address] [place] [address] Sharon Aguirre NP Acute osteomyelitis of metatarsal bone of left foot (HCC) (Primary Dx) 08/16/2024 9:00 AM RING ATTACHER Office Visit [facility] Primary Care at [address] [place] [address] Kunal Diana MD Type 2 diabetes mellitus with hyperlipidemia (HCC) (Primary Dx); Class 3 severe obesity due to excess calories with serious comorbidity and body mass index (BMI) of 40.0 to 44.9 in adult (HCC); Morbid (severe) obesity due to excess calories (HCC); Type 2 diabetes mellitus with hyperglycemia, without long-term current use of insulin (HCC) 08/13/2024 Orders Only [facility] [address] [facility] [address], [place] [address] Sharon Aguirre NP Other acute osteomyelitis of left foot (HCC) (Primary Dx); Type 2 diabetes mellitus with foot ulcer (CODE) (HCC) 08/09/2024 6:28 PM RING ATTACHER - 08/09/2024 11:59 PM RING ATTACHER Hospital Encounter [facility] [address] [place] [address] Diagnosis unknown Discharge Disposition: Discharge to home or self care 08/09/2024 8:45 AM RING ATTACHER Orders Only [facility] [address] [place] [address] 08/09/2024 Orders Only [facility] [address] [place] [address] Sharon Aguirre NP Diabetic ulcer of toe of left foot associated with type 2 diabetes mellitus, with fat layer exposed (HCC) (Primary Dx) 08/02/2024 Orders Only [facility] [address] [place] [address] Sharon Aguirre NP 07/26/2024 9:10 AM RING ATTACHER - 07/26/2024 11:59 PM RING ATTACHER Hospital Encounter [facility] [address] [place] [address] Diabetic ulcer of toe of left foot associated with type 2 diabetes mellitus, with fat layer exposed (HCC) Discharge Disposition: Discharge to home or self care 07/26/2024 Orders Only [facility] [address] [place] [address] Sharon Aguirre NP Diabetic ulcer of toe [...] Comments Blood Pressure 120/86 08/16/2024 8:45 AM RING ATTACHER Pulse 77 08/16/2024 8:45 AM RING ATTACHER Temperature 36.4 C (97.5 F) 03/22/2024 12:37 PM CDT Respiratory Rate 16 08/16/2024 8:45 AM RING ATTACHER Oxygen Saturation 98% 08/16/2024 8:45 AM RING ATTACHER Inhaled Oxygen Concentration - - Weight 137.4 kg (303 lb) 08/16/2024 8:45 AM RING ATTACHER Height 177.8 cm (5' 10 ) 08/16/2024 8:45 AM RING ATTACHER Body Mass Index 43.48 08/16/2024 8:45 AM RING ATTACHER Plan of Treatment Health Maintenance Due Date Last Done Comments Dilated Eye Exam 1980 Foot Exam 1980 Pneumococcal vaccine <65 (1 of 2 - PCV) 1986 Varicella Vaccines (1 of 2 - 13+ 2-dose series) 1993 Covid-19 Vaccine (2023- season) 2024 10/12/2021, 10/20/2020, 10/20/2020, Additional history [...] GLUCOSE DEVICE Routine 09/12/2024 8 :11 AM RING ATTACHER IR PICC LINE PLACEMENT > 5 YEARS Schedule Routine, Read Routine (OP Routine) 09/11/2024 9:12 AM RING ATTACHER 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) ECG 12-LEAD Routine 08/23/2024 11:00 AM RING ATTACHER Acute osteomyelitis of metatarsal bone of left foot (HCC) XR CHEST PA LATERAL 2 VIEWS Schedule Routine, Read Routine (OP Routine) 08/23/2024 10:53 AM RING ATTACHER Acute osteomyelitis of metatarsal bone of left foot (HCC) POCT HEMOGLOBIN A1C Routine 08/16/2024 8:55 AM RING ATTACHER Type 2 diabetes mellitus with hyperlipidemia (HCC) MSK MR OUTSIDE CONSULT Routine 08/09/2024 6:28 PM RING ATTACHER Diagnosis unknown AEROBIC AND ANAEROBIC CULTURE AND GRAM STAIN Routine 07/26/2024 9:10 AM RING ATTACHER Diabetic ulcer of toe of left foot [...] * (ABNORMAL) POCT glucose (09/12/2024 8:11 AM RING ATTACHER) Glucose, POC 217(H) 70 - 199 mg/dL Blood 09/12/2024 8:11 AM RING ATTACHER 09/12/2024 8:11 AM RING ATTACHER us Meng Messina MD LAB POCT ORDERABLES - RIVERA CE Final Result [facility] [address] [place] [address] * IR PICC Line Placement Over 5 Years of Age (09/11/2024 9:12 AM RING ATTACHER) Anatomical Region Laterality Modality Body N/A X-Ray Angiograph y 09/11/2024 10:0 3 AM RING ATTACHER Impressions 09/11/2024 10:03 AM RING ATTACHER Successful PICC placement using ultrasound guidance. Electronically signed by: Hieu Capone M.D. Narrative 09/11/2024 10:03 AM RING ATTACHER EXAMINATION: IR PICC LINE PLACEMENT OVER 5 [...] After dilating the tract, a 45 cm, 5-Gibraltarian dual-lumen PICC was inserted through the peel-away [...] After dilating the tract, a 45 cm, 5-Gibraltarian dual-lumen PICC was inserted through the peel-away [...] by: Hieu Capone M.D. Ciaran Nogueira MD [facility] IR PROCEDURES Final Result * ECG 12 lead (08/23/2024 11:00 AM RING ATTACHER) 08/23/2024 10:4 8 AM RING ATTACHER Narrative [facility] - 08/23/2024 3:30 PM RING ATTACHER Vent Rate: 68 bpm RR Interval: 882 msec VA Interval: 160 msec QRS Duration: 102 msec QT Interval: 352 msec QTC Interval: 368 msec P-R-T Kincheloe: 21 - 49 - 26 degrees IMPRESSION: SINUS RHYTHM NORMAL ECG Electronically Signed By: Dr. Braulio Winter Sharon Aguirre NP ECG ORDERABLES Fin al Result [facility] * X-ray chest 2 views (08/23/2024 10:53 AM RING ATTACHER) Anatomical Region Laterality Modality Body, Chest N/A Computed Radiogr aphy 08/23/2024 10:5 9 AM RING ATTACHER Impressions 08/23/2024 10:59 AM RING ATTACHER Normal study. Electronically signed by: Leo Price M.D. Narrative 08/23/2024 10:59 AM RING ATTACHER EXAMINATION: XR CHEST PA LATERAL 2 VIEWS [...] signed by: Leo Price M.D. Sharon Aguirre ENVELOPE MACHINE ADJUSTER IMG XR PROCEDURES F inal Result * (ABNORMAL) POCT hemoglobin A1c (08/16/2024 8:55 AM RING ATTACHER) Hemoglobin A1C, POC 9.3 4.0 - 5.6 % Capillary blood 08/16/2024 8 :55 AM RING ATTACHER us Kunal Diana MD POINT OF CARE TEST ORDERABLES Fi nal Result * MSK MR Outside Consult (08/09/2024 6:28 PM RING ATTACHER) Anatomical Region Laterality Modality N/A Magnetic Resonan ce 08/10/2024 10:3 0 AM RING ATTACHER Impressions 08/10/2024 1:17 PM RING ATTACHER Soft tissue defect/ulceration lateral to the 5th [...] images may or may not represent the [facility] source data set and thus may contain changes that may lower the accuracy of this second-opinion interpretation. Dictated by: Charley Galvan MD, PhD The radiology attending physician has personally reviewed this study, and had reviewed and/or edited this written report and agrees with it. Electronically signed by: Turner Mir MD Narrative 08/10/2024 1:17 PM RING ATTACHER EXAMINATION: RADIOLOGY CONSULTATION ON OUTSIDE IMAGING STUDY STUDY INITIALLY PERFORMED: 08/06/2024 at [facility]. TYPE OF STUDY: Multiple MR [...] IMAGING STUDY STUDY INITIALLY PERFORMED: 08/06/2024 at [facility]. TYPE OF STUDY: Multiple MR [...] images may or may not represent the [facility] source data set and thus may contain [...] stain Wound Foot, left (07/26/2024 9:10 AM RING ATTACHER) Direct Specimen Exam Stain: Few polymorphonuclear leukocytes seen. Moderate Gram Positive Cocci Comment:Testing performed by : [facility], [address] [place] [address]., [id number] Report Final Report: Moderate Streptococcus agalactiae (Group [...] allergic patients, please contact the laboratory at [phone] to request susceptibility testing * * * * * * * * * * * * * * * * * * * * Few Staphylococcus aureus Methicillin susceptible (MSSA) by penicillin binding protein 2a (PBP2a) testing. Few Mixed microorganisms. (.) [facility] Comment:Testing performed by : [facility], [address] [place] [address]., [id number] Organism STREPTOCOCCUS AGALACTIAE (GROUP B STREPTOCOCCI) [facility] Organism STAPHYLOCOCCUS AUREUS [facility] Organism MIXED MICROORGANISMS. [facility] Wound (Foot, left) 07/26/2024 9:10 AM RING ATTACHER 07/26/2024 4:18 PM RING ATTACHER Narrative [facility] - 07/30/2024 1:43 PM RING ATTACHER Specimen received on an ESwab. Testing performed by [facility] ([phone]) Specimens submitted from normally sterile body sites [...] GENERAL ORDERABLES Final Result Performing Organization Address City/[facility] Co de Phone Number GARY SULLIVAN [address] [place] [address] * Hepatitis C antibody (04/18/2024 12:16 PM CDT) Hep C Ab NON-REACTI VE NON-REACT CHANDRAKANT [facility] Comment: HCV antibody was non-reactive. There is no laboratory evidence of HCV infection. In most cases, no further action is required. However, if recent HCV exposure is suspected, a test for HCV RNA (test code 27840) is suggested. For additional information please refer to http://education.Talkpush/faq/IQD72y7 (This link is being provided for informational/ educational purposes only.) 04/18/2024 12:1 6 PM CDT 04/18/2024 12:16 PM CDT Kunal Diana MD LAB MICROBIOLOGY - GENERAL ORDER CORINNE Final Result Performing Organization Address City/[facility] de Phone Number [facility] [address] [place] [address] * (ABNORMAL) Albumin Creatinine Ratio, Urine (04/18/2024 [...] MD LAB URINE ORDERABLES Final Resul t CAR[facility] [address] [place] [address] * (ABNORMAL) Lipid panel (04/18/2024 12:16 PM CDT) Cholesterol 260(H) <200 mg/dL [facility] HDL 45 > OR = 40 mg/dL [facility] Triglycerides 942(H) <150 mg/dL [facility] Comment: If a non-fasting specimen [...] of Clin. Lipidol. 2015;9:129-169. LDL mg/dL (calc) [facility] Comment: LDL cholesterol not calculated. Triglyceride [...] LDL-C. Marcelo SS et al. KIRA. 2013;310(19): 8243-7045 (http://education.B-Side Entertainment/faq/SDB295) Chol/HDL ratio 5.8(H) <5.0 (calc) [facility] Non-HDL, (LDL+VLDL) 215(H) <130 mg/dL (calc) [facility] Comment: For patients with diabetes plus 1 major ASCVD risk factor, treating to a non-HDL-C goal of <100 mg/dL (LDL-C of <70 mg/dL) is considered a therapeutic option. Blood 04/18/2024 12:1 6 PM CDT 04/18/2024 12:16 PM CDT us Kunal Diana MD LAB BLOOD ORDERABLES Final Resul t [facility] [address] [place] [address] * (ABNORMAL) Comprehensive metabolic panel (04/18/2024 12:16 PM CDT) Glucose 198(H) 65 - 99 mg/dL [facility] Comment: Fasting reference interval For someone without known diabetes, a glucose value >125 mg/dL indicates that they may have diabetes and this should be confirmed with a follow-up test. BUN 13 7 - 25 mg/dL [facility] Creatinine 0.74 0.60 - 1.29 mg/dL [facility] eGFR 115 > OR = 60 mL/min/1.7 3m2 [facility] BUN/creat ratio SEE NOTE: 6 - 22 (calc) [facility] Comment: Not Reported: BUN and Creatinine are within reference range. Sodium 133(L) 135 - 146 mmol/L [facility] Potassium, pl 4.3 3.5 - 5.3 mmol/L [facility] Chloride 98 98 - 110 mmol/L [facility] CO2 25 20 - 32 mmol/L [facility] Calcium 9.3 8.6 - 10.3 mg/dL [facility] Protein, sr 7.6 6.1 - 8.1 g/dL [facility] Albumin 4.4 3.6 - 5.1 g/dL [facility] GLOBULIN 3.2 1.9 - 3.7 g/dL (calc) [facility] Alb/glob ratio 1.4 1.0 - 2.5 (calc) [facility] Bilirubin, total 0.6 0.2 - 1.2 mg/dL [...] BLOOD ORDERABLES Final Resul t [facility] [address] [place] [address] from Last 3 Months or Most Recently Relevant to Health Maintenance Insurance [employer] [place] [employer] [place] Care Teams Network Lead Relationship Specialty Start Date End Date Kunal Diana MD [address] [facility] [address] [place] [address] PCP - General Family Medicine 12/08/23
--- OUTSIDE RECORDS SUMMARY | 2024-10-02 14:00 | XMS_ITS | Encounter Summary ---
Author Organization [facility] Healthcare Address [address] [place] [address] Care Team Providers Care Child Therapist Name Role Phone Kunal Diana MD Primary Care Provider [phone] Reason for Visit * Reason Onset Date Comments Med Refill 09/26/2024 Encounter Details Date Type Department Care Team (Late st Contact Info) Description 09/26/2024 Telephone [facility] Medical Group Primary Care at [address] [address] Kunal Diana MD [address] [place] [address] Med Refill Social History Tobacco Use Types Packs/Day Years [...] encounter Miscellaneous Notes * Telephone Encounter - Kim Sims MA - 09/27/2024 10:32 AM AIR TABLE OPERATOR Pt aware TABLE OPERATOR * Telephone Encounter - Kunal Diana MD - 09/27/2024 10:10 AM CST Rx sent, I would recommend tryuing to reach otu to the ID doctor if he needs further refills TABLE OPERATOR * Telephone Encounter - Kym Serrano - 09/26/2024 11:07 AM CST Medication Question/Clarification Medication Name(s)/Dose: fluconazole 200 mg What is the question or clarification needed? Patient would like to know if he can get 3 dosages ofthis medication because he will be getting an iv with antibiotics for the next 3 weeks , he has already undergone some of the antibiotics treatment and has caused a yeast infection , the other doctoralready prescribed him some, but he wants more for the following weeks because he is having a hard time getting in touch with that doctor If needed, Pharmacy(s) medication(s) should be sent to: [id number] [facility] [address] [phone] Additional Comments: none Does message need to be routed? Yes-Action Needed TABLE OPERATOR documented in this encounter Plan of Treatment Not on file documented as of this encounter Visit Diagnoses Not on filedocumented in this encounter Care Teams Child Therapist Relationship Specialty Start Date End Date Kunal Diana MD [address] [facility] [place] [address] PCP - General Family Medicine 12/08/23 documented as of this encounter
[2024-10-02 20:04] LABS: Hematocrit 40.6 % (42.0-52.0); Hemoglobin 13.6 g/dL (14.0-18.0); Mean Corpuscular HGB Conc 33.5 g/dl (32-36); Mean Corpuscular Hemoglobin 29.5 pg (26-34); Mean Corpuscular Volume 88.1 fl (80-100); Mean Platelet Volume 12.1 fl (7.4-10.4); Platelet Count Result 186 k/mm3 (150-375); Red Blood Count 4.61 M/mm3 (4.6-6.20); Red Cell Distribution Width 13.3 % (11.5-14.5); White Blood Count 8.6 K/mm3 (4.5-10.0)
[2024-10-02 21:45] LABS: Erythrocyte Sedimentation Rate 40 mm/hr (0-20)
[2024-10-03 00:08] LABS: Alanine Aminotransferase 38 U/L (6-50); Albumin Level 4.1 g/dL (3.5-5.1); Alkaline Phosphatase 62 U/L (38-126); Anion Gap 11 mmol/L (4-12); Aspartate Amino Transferase 42 U/L (17-59); Bilirubin,Total 0.5 mg/dL (0.2-1.3); Blood Urea Nitrogen 18 mg/dL (9-20); CRP < 0.5 mg/dL (<1.0); Calcium 9.3 mg/dL (8.4-10.2); Carbon Dioxide 22 mmol/L (22-30); Chloride 102 mmol/L (98-107); Estimated Glomerular Filt Rate > 60; Glucose 146 mg/dL (65-110); Sodium 135 mmol/L (137-145)
== END 2024-10-02 13:11 | disposition home or self-care (01) ==
PROVIDERS: PCP Internal Medicine
DX: L97.522 Non-pressure chronic ulcer of other part of left foot with fat layer exposed (principal)
CPT/HCPCS: 80053; 85027; 85652; 86140

== ENCOUNTER 2024-10-09 13:57 | Outpatient (NON) | payer BC, SELFPAY ==
--- OUTSIDE RECORDS SUMMARY | 2024-10-09 14:06 | XMS_ITS | Clinical Summary ---
Author Organization [facility] Address [address] [place] [address] Care Team Providers Care Merchant Tailor Name Role Phone Kunal Diana MD Primary Care Provider [phone] Allergies No known active allergies Medications metFORMIN [...] 1 tablet (200 mg total) by mouth once a week 3 tablet 10/03/19 25 Active tirzepatide (Mounjaro) 5 mg/0.5 mL pen injector Inject 5 mg under the skin every 7 days 6 mL 08/16/20 24 025 Discontinued fluconazole (DIFLUCAN) 200 mg tablet Take 1 tablet (200 mg total) by mouth as needed (yeast infection) 3 tablet 09/27/19 25 025 Discontinued(Re order) Active Problems Problem Noted Date Diagnosed Date Idiopathic peripheral neuropathy 12/08/2023 Assessment & Plan (12/08/2023 2:53 PM CDT): Still having sx Not at goal at this time Start elavil 10 mg qhs Type 2 diabetes mellitus with hyperlipidemia Assessment & Plan (08/16/2024 9:07 AM CD REACTOR OPERATOR HEAD): Lab Results Component Value Date HGBA1C 9.3 [...] 12/08/2023 Assessment & Plan (08/16/2024 9:01 AM CD REACTOR OPERATOR HEAD): Wt Readings from Last 3 Encounters: 08/16/24 [...] 12/08/2023 Assessment & Plan (08/16/2024 9:01 AM CD REACTOR OPERATOR HEAD): Wt Readings from Last 3 Encounters: 08/16/24 [...] Encounters Date Type Department Care Team Description 10/08/2024 8:00 AM CD REACTOR OPERATOR HEAD Procedure visit [address] [address] 10/05/2024 8:00 AM CD REACTOR OPERATOR HEAD Procedure visit [address] [address] 10/04/2024 10:00 AM CD REACTOR OPERATOR HEAD Orders Only [address] [address] 10/04/2024 8:00 AM CD REACTOR OPERATOR HEAD Procedure visit [address] [address] 10/03/2024 8:00 AM CD REACTOR OPERATOR HEAD Procedure visit [facility] [address] [place] [address] 10/02/2024 8:00 AM CD REACTOR OPERATOR HEAD Procedure visit [address] [address] 10/01/2024 8:00 AM CD REACTOR OPERATOR HEAD Procedure visit [address] [address] 10/01/2024 Telephone [facility] Primary Care at [address] [address] Kunal Diana MD Call Back 09/28/2024 8:00 AM CD REACTOR OPERATOR HEAD Procedure visit [address] [address] 09/27/2024 10:00 AM CD REACTOR OPERATOR HEAD Orders Only [address] [address] 09/27/2024 8:00 AM CD REACTOR OPERATOR HEAD Procedure visit [address] [address] 09/27/2024 Orders Only [facility] Primary Care at [address] [address] Kunal Diana MD 09/26/2024 8:00 AM CD REACTOR OPERATOR HEAD Procedure visit [address] [address] 09/26/2024 Telephone [facility] Primary Care at [address] [phone] Kunal Diana MD Med Refill 09/25/2024 8:00 AM CD REACTOR OPERATOR HEAD Procedure visit [address] [address] 09/24/2024 8:00 AM CD REACTOR OPERATOR HEAD Procedure visit [address] [address] 09/21/2024 10:00 AM CD REACTOR OPERATOR HEAD Orders Only [address] [address] 09/21/2024 8:00 AM CD REACTOR OPERATOR HEAD Procedure visit [address] [address] 09/20/2024 10:00 AM CD REACTOR OPERATOR HEAD Orders Only [address] [address] 09/20/2024 8:00 AM CD REACTOR OPERATOR HEAD Procedure visit [address] [address] 09/19/2024 8:00 AM CD REACTOR OPERATOR HEAD Procedure visit [address] [address] 09/18/2024 8:00 AM CD REACTOR OPERATOR HEAD Procedure visit [address] [address] 09/17/2024 10:00 AM CD REACTOR OPERATOR HEAD Orders Only [address] [address] 09/17/2024 8:00 AM CD REACTOR OPERATOR HEAD Procedure visit [address] [address] 09/17/2024 Orders Only [facility] Primary Care at [address] [place] [phone] Kunal Diana MD 09/14/2024 8:00 AM CD REACTOR OPERATOR HEAD Procedure visit [address] [address] 09/13/2024 10:00 AM CD REACTOR OPERATOR HEAD Orders Only [address] [address] 09/13/2024 8:00 AM CD REACTOR OPERATOR HEAD Procedure visit [address] [address] 09/12/2024 8:00 AM CD REACTOR OPERATOR HEAD Procedure visit [address] [address] 09/11/2024 7:51 AM CD REACTOR OPERATOR HEAD - 09/11/2024 11:59 PM CD REACTOR OPERATOR HEAD Hospital Encounter 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 Imaging and Radiology [address] [place] [address] Vincent Reed MD 09/06/2024 8:45 AM CD REACTOR OPERATOR HEAD Orders Only [facility] [address] [place] [address] 08/23/2024 10:28 AM CD REACTOR OPERATOR HEAD - 08/23/2024 11:59 PM CD REACTOR OPERATOR HEAD Hospital Encounter [facility] [address] [place] [address] Acute osteomyelitis of metatarsal bone of left foot (HCC) Discharge Disposition: Discharge to home or self care 08/23/2024 10:27 AM CD REACTOR OPERATOR HEAD - 08/23/2024 11:59 PM CD REACTOR OPERATOR HEAD Hospital Encounter [facility] Diagnostic Imaging [address] [place] [address] Acute osteomyelitis of metatarsal bone of left foot (HCC) Discharge Disposition: Discharge to home or self care 08/23/2024 8:45 AM CD REACTOR OPERATOR HEAD Orders Only [facility] [address] [place] [address] 08/23/2024 Orders Only [facility] [address] [place] [address] Sharon Aguirre NP Acute osteomyelitis of metatarsal bone of left foot (HCC) (Primary Dx) 08/16/2024 9:00 AM CD REACTOR OPERATOR HEAD Office Visit [facility] Primary Care at [address] [place] [phone] Kunal Diana MD Type 2 diabetes mellitus with hyperlipidemia (HCC) (Primary Dx); Class 3 severe obesity due to excess calories with serious comorbidity and body mass index (BMI) of 40.0 to 44.9 in adult (HCC); Morbid (severe) obesity due to excess calories (HCC); Type 2 diabetes mellitus with hyperglycemia, without long-term current use of insulin (HCC) 08/13/2024 Orders Only [facility] [address] [facility] [address] [place] [phone] Sharon Aguirre NP Other acute osteomyelitis of left foot (HCC) (Primary Dx); Type 2 diabetes mellitus with foot ulcer (CODE) (HCC) 08/09/2024 6:28 PM CD REACTOR OPERATOR HEAD - 08/09/2024 11:59 PM CD REACTOR OPERATOR HEAD Hospital Encounter [facility] [address] [place] [address] Diagnosis unknown Discharge Disposition: Discharge to home or self care 08/09/2024 8:45 AM CD REACTOR OPERATOR HEAD Orders Only [facility] Wound [facility] [address] [place] [address] 08/09/2024 Orders Only [address] [address] Sharon Aguirre NP Diabetic ulcer of toe of left foot associated with type 2 diabetes mellitus, with fat layer exposed (HCC) (Primary Dx) 08/02/2024 Orders Only [address] [address] Sharon Aguirre NP 07/26/2024 9:10 AM CD REACTOR OPERATOR HEAD - 07/26/2024 11:59 PM CD REACTOR OPERATOR HEAD Hospital Encounter [address] [address] Diabetic ulcer of toe of left foot associated with type 2 diabetes mellitus, with fat layer exposed (HCC) Discharge Disposition: Discharge to home or self care 07/26/2024 Orders Only [facility] Wound [facility] [address] [place] [address] Sharon Aguirre NP Diabetic ulcer of toe of left foot associated with type 2 diabetes mellitus, with fat layer exposed (HCC) (Primary Dx) from Last 3 Months Immunizations Immunization Administration Dates Next Due DTP 06/24/1986,03/11/1986,01/28/1981 Influenza, [...] Comments Blood Pressure 120/86 08/16/2024 8:45 AM CD REACTOR OPERATOR HEAD Pulse 77 08/16/2024 8:45 AM CD REACTOR OPERATOR HEAD Temperature 36.4 C (97.5 F) 03/22/2024 12:37 PM CDT Respiratory Rate 16 08/16/2024 8:45 AM CD REACTOR OPERATOR HEAD Oxygen Saturation 98% 08/16/2024 8:45 AM CD REACTOR OPERATOR HEAD Inhaled Oxygen Concentration - - Weight 137.4 kg (303 lb) 08/16/2024 8:45 AM CD REACTOR OPERATOR HEAD Height 177.8 cm (5' 10 ) 08/16/2024 8:45 AM CD REACTOR OPERATOR HEAD Body Mass Index 43.48 08/16/2024 8:45 AM CD REACTOR OPERATOR HEAD Plan of Treatment Health Maintenance Due Date Last Done Comments Dilated Eye Exam 1980 Foot Exam 1980 Varicella Vaccines (1 of 2 - 13+ 2-dose series) 1993 Pneumococcal vaccine <65 (1 of 2 - PCV) 1999 Covid-19 Vaccine ( season) 2024 10/12/2021, 10/20/2020, [...] GLUCOSE DEVICE Routine 09/12/2024 8 :11 AM CD REACTOR OPERATOR HEAD IR PICC LINE PLACEMENT > 5 YEARS Schedule Routine, Read Routine (OP Routine) 09/11/2024 9:12 AM CD REACTOR OPERATOR HEAD 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) ECG 12-LEAD Routine 08/23/2024 11:00 AM CD REACTOR OPERATOR HEAD Acute osteomyelitis of metatarsal bone of left foot (HCC) XR CHEST PA LATERAL 2 VIEWS Schedule Routine, Read Routine (OP Routine) 08/23/2024 10:53 AM CD REACTOR OPERATOR HEAD Acute osteomyelitis of metatarsal bone of left foot (HCC) POCT HEMOGLOBIN A1C Routine 08/16/2024 8 :55 AM CD REACTOR OPERATOR HEAD Type 2 diabetes mellitus with hyperlipidemia (HCC) MSK MR OUTSIDE CONSULT Routine 08/09/2024 6:28 PM CD REACTOR OPERATOR HEAD Diagnosis unknown AEROBIC AND ANAEROBIC CULTURE AND GRAM STAIN Routine 07/26/2024 9:10 AM CD REACTOR OPERATOR HEAD Diabetic ulcer of toe of left foot [...] * (ABNORMAL) POCT glucose (09/12/2024 8:11 AM CD REACTOR OPERATOR HEAD) Glucose, POC 217(H) 70 - 199 mg/dL Blood 09/12/2024 8:11 AM CD REACTOR OPERATOR HEAD 09/12/2024 8:11 AM CD REACTOR OPERATOR HEAD us Meng Messina MD LAB POCT ORDERABLES - RIVERA CE Final Result Performing Organization Address City/State/[facility] Co ar Phone Number [facility] [address] Department of Laboratories [place], [place] [phone] * IR PICC Line Placement Over 5 Years of Age (09/11/2024 9:12 AM CD REACTOR OPERATOR HEAD) Anatomical Region Laterality Modality Body N/A X-Ray Angiograph y 09/11/2024 10:0 3 AM CD REACTOR OPERATOR HEAD Impressions 09/11/2024 10:03 AM CD REACTOR OPERATOR HEAD Successful PICC placement using ultrasound guidance. Electronically signed by: Hieu Capone M.D. Narrative 09/11/2024 10:03 AM CD REACTOR OPERATOR HEAD EXAMINATION: IR PICC LINE PLACEMENT OVER 5 [...] After dilating the tract, a 45 cm, 5-Irish dual-lumen PICC was inserted through the peel-away [...] After dilating the tract, a 45 cm, 5-Irish dual-lumen PICC was inserted through the peel-away [...] * ECG 12 lead (08/23/2024 11:00 AM CD REACTOR OPERATOR HEAD) 08/23/2024 10:4 8 AM CD REACTOR OPERATOR HEAD Narrative [facility] - 08/23/2024 3:30 PM CD REACTOR OPERATOR HEAD Vent Rate: 68 bpm RR Interval: 882 msec TX Interval: 160 msec QRS Duration: 102 msec QT Interval: 352 msec QTC Interval: 368 msec P-R-T [place]: 21 - 49 - 26 degrees IMPRESSION: SINUS RHYTHM NORMAL ECG Electronically Signed By: Dr. Braulio Winter Sharon Aguirre NP ECG ORDERABLES Fin al Result [facility] Conversion [employer] [facility] * X-ray chest 2 views (08/23/2024 10:53 AM CD REACTOR OPERATOR HEAD) Anatomical Region Laterality Modality Body, Chest N/A Computed Radiogr aphy 08/23/2024 10:5 9 AM CD REACTOR OPERATOR HEAD Impressions 08/23/2024 10:59 AM CD REACTOR OPERATOR HEAD Normal study. Electronically signed by: Leo Price M.D. Narrative 08/23/2024 10:59 AM CD REACTOR OPERATOR HEAD EXAMINATION: XR CHEST PA LATERAL 2 VIEWS [...] signed by: Leo Price M.D. Sharon Aguirre AGRICULTURAL ECONOMICS PROFESSOR IMG XR PROCEDURES F inal Result * (ABNORMAL) POCT hemoglobin A1c (08/16/2024 8:55 AM CD REACTOR OPERATOR HEAD) Hemoglobin A1C, POC 9.3 4.0 - 5.6 % Capillary blood 08/16/2024 8 :55 AM CD REACTOR OPERATOR HEAD Kunal Diana MD POINT OF CARE TEST ORDERABLES Fi nal Result * MSK MR Outside Consult (08/09/2024 6:28 PM CD REACTOR OPERATOR HEAD) Anatomical Region Laterality Modality N/A Magnetic Resonan ce 08/10/2024 10:3 0 AM CD REACTOR OPERATOR HEAD Impressions 08/10/2024 1:17 PM CD REACTOR OPERATOR HEAD Soft tissue defect/ulceration lateral to the 5th [...] images may or may not represent the [place] source data set and thus may contain changes that may lower the accuracy of this second-opinion interpretation. Dictated by: Charley Galvan MD, PhD The radiology attending physician has personally reviewed this study, and had reviewed and/or edited this written report and agrees with it. Electronically signed by: Turner Mir MD Narrative 08/10/2024 1:17 PM CD REACTOR OPERATOR HEAD EXAMINATION: RADIOLOGY CONSULTATION ON OUTSIDE IMAGING STUDY STUDY INITIALLY PERFORMED: 08/06/2024 at [facility]. TYPE OF STUDY: Multiple MR images of [...] IMAGING STUDY STUDY INITIALLY PERFORMED: 08/06/2024 at [facility]. TYPE OF STUDY: Multiple MR images of [...] images may or may not represent the [place] source data set and thus may contain [...] stain Wound Foot, left (07/26/2024 9:10 AM CD REACTOR OPERATOR HEAD) Direct Specimen Exam Stain: Few polymorphonuclear leukocytes seen. Moderate Gram Positive Cocci Comment:Testing performed by : [facility], [address] [place] [address]., [id number] Report Final Report: Moderate Streptococcus agalactiae (Group [...] allergic patients, please contact the laboratory at [phone] to request susceptibility testing * * * * * * * * * * * * * * * * * * * * Few Staphylococcus aureus Methicillin susceptible (MSSA) by penicillin binding protein 2a (PBP2a) testing. Few Mixed microorganisms. (.) GARY SULLIVAN Comment:Testing performed by : [facility], [address] [place] [address], [place]., [address] Organism STREPTOCOCCUS AGALACTIAE (GROUP B STREPTOCOCCI) [facility] Organism STAPHYLOCOCCUS AUREUS [facility] Organism MIXED MICROORGANISMS. [facility] Wound (Foot, left) 07/26/2024 9:10 AM CD REACTOR OPERATOR HEAD 07/26/2024 4:18 PM CD REACTOR OPERATOR HEAD Narrative GARY - 07/30/2024 1:43 PM CD REACTOR OPERATOR HEAD Specimen received on an ESwab. Testing performed by [facility] Microbiology Laboratory ([phone]) Specimens submitted from normally sterile body sites [...] MICROBIOLOGY - GENERAL ORDERABLES Final Result GARY [address] Department [place] [address] * Hepatitis C antibody (04/18/2024 12:16 PM CDT) Hep C Ab NON-REACTI VE NON-REACT [facility] Comment: HCV antibody was non-reactive. There is no laboratory evidence of HCV infection. In most cases, no further action is required. However, if recent HCV exposure is suspected, a test for HCV RNA (test code 57784) is suggested. For additional information please refer to http://education.[employer].Cuedd/faq/JSC88b5 (This link is being provided for informational/ educational purposes only.) 04/18/2024 12:1 6 PM CDT 04/18/2024 12:16 PM CDT Kunal Diana MD LAB MICROBIOLOGY - GENERAL ORDER CORINNE Final Result Performing Organization Address [facility] Co de Phone Number CARMEN Escalante [facility] [address] [place] [address] * (ABNORMAL) Albumin Creatinine Ratio, Urine (04/18/2024 [...] ORDERABLES Final Resul t Performing Organization Address [facility] de Phone Number CARMEN Escalante [employer] [address] [place] [address] * (ABNORMAL) Lipid panel (04/18/2024 12:16 PM CDT) Cholesterol 260(H) <200 mg/dL [facility] HDL 45 > OR = 40 mg/dL [facility] Triglycerides 942(H) <150 mg/dL [facility] Comment: If a non-fasting specimen was collected, consider repeat triglyceride testing on a fasting specimen if clinically indicated. Rebeca winn al. J. of Clin. Lipidol. 2015;9:129-169. There is increased risk of pancreatitis when the triglyceride concentration is very high (> or = 500 mg/dL, especially if > or = 1000 mg/dL). Rebeca et al. J. of Clin. Lipidol. 2015;9:129-169. LDL mg/dL (calc) [facility] Comment: LDL cholesterol not calculated. Triglyceride [...] LDL-C. Marcelo CULLEN et al. KIRA. 2013;310(19): 3741-4835 (http://education.FM Global/faq/RIV807) Chol/HDL ratio 5.8(H) <5.0 (calc) [facility] Non-HDL, (LDL+VLDL) 215(H) <130 mg/dL (calc) [facility] Comment: For patients with diabetes plus 1 major ASCVD risk factor, treating to a non-HDL-C goal of <100 mg/dL (LDL-C of <70 mg/dL) is considered a therapeutic option. Blood 04/18/2024 12:1 6 PM CDT 04/18/2024 12:16 PM CDT us Kunal Diana MD LAB BLOOD ORDERABLES Final Resul t [facility] Organization Address City/State/ZIP Co de Phone Number CARMEN [facility] [address] [place] [address] * (ABNORMAL) Comprehensive metabolic panel (04/18/2024 12:16 PM CDT) Glucose 198(H) 65 - 99 mg/dL [facility] Comment: Fasting reference interval For someone without known diabetes, a glucose value >125 mg/dL indicates that they may have diabetes and this should be confirmed with a follow-up test. BUN 13 7 - 25 mg/dL [facility] Creatinine 0.74 0.60 - 1.29 mg/dL [facility] eGFR 115 > OR = 60 mL/min/1.7 3m2 [facility] BUN/creat ratio SEE NOTE: 6 - 22 (calc) [facility] Comment: Not Reported: BUN and Creatinine are within reference range. Sodium 133(L) 135 - 146 mmol/L [facility] Potassium, pl 4.3 3.5 - 5.3 mmol/L [facility] Chloride 98 98 - 110 mmol/L [facility] CO2 25 20 - 32 mmol/L [facility] Calcium 9.3 8.6 - 10.3 mg/dL [facility] Protein, sr 7.6 6.1 - 8.1 g/dL [facility] Albumin 4.4 3.6 - 5.1 g/dL [facility] GLOBULIN 3.2 1.9 - 3.7 g/dL (calc) [facility] Alb/glob ratio 1.4 1.0 - 2.5 [...] ORDERABLES Final Resul t [facility] [address] [facility] [address] [place] [address] from Last 3 Months or Most Recently Relevant to Health Maintenance Insurance [facility] Care Teams Merchant Tailor Relationship Specialty Start Date End Date Kunal Diana MD 2 [facility] [address] [address] PCP - General Family Medicine 12/08/23
--- OUTSIDE RECORDS SUMMARY | 2024-10-09 14:06 | XMS_ITS | Clinical Summary ---
Author Organization [facility] Address [address] [place] [address] Phone Care Team Providers Care Loan Servicing Representative Name Role Phone Hasmukh De La Paz [...] STL ABSTRACTION Provider, Abstract 08/06/2024 9:30 AM PLASTER MODEL AND MOLD MAKER Ancillary Procedure [facility] [address] [address] [place], External Provider Diabetic foot ulcer with [...] on file Legal Sex Male 10:28 AM PLASTER MODEL AND MOLD MAKER Gender Identity Not on file Sexual Orientation Not on file Last Filed Vital Signs Vital Sign Reading Time Taken Comments Blood Pressure 134/86 08/10/2013 8:06 AM PLASTER MODEL AND MOLD MAKER Pulse 76 08/10/2013 8:06 AM PLASTER MODEL AND MOLD MAKER Temperature 37.1 C (98.8 F) 08/10/2013 8:06 AM PLASTER MODEL AND MOLD MAKER pt took tylenol this morning Respiratory Rate 16 08/10/2013 8:06 AM PLASTER MODEL AND MOLD MAKER Oxygen Saturation 97% 08/10/2013 8:0 6 AM PLASTER MODEL AND MOLD MAKER Inhaled Oxygen Concentration - - Weight 170.1 kg (375 lb) 08/10/2013 8:0 6 AM PLASTER MODEL AND MOLD MAKER Height 180.3 cm (5' 11 ) 08/10/2013 8:0 6 AM PLASTER MODEL AND MOLD MAKER Body Mass Index 52.3 08/10/2013 8:06 AM PLASTER MODEL AND MOLD MAKER Plan of Treatment Health Maintenance Due Date [...] WO CONTRAST LEFT Routine 08/06/2024 10:03 AM PLASTER MODEL AND MOLD MAKER Diabetic foot ulcer with osteomyelitis (CMS/HCC) from Last 3 Months Results * MRI FOOT WO CONTRAST LEFT (08/06/2024 10:03 AM PLASTER MODEL AND MOLD MAKER) Anatomical Region Laterality Modality Ankle / Foot Magnetic Resonan ce 08/06/2024 10:0 4 AM PLASTER MODEL AND MOLD MAKER Impressions 08/06/2024 10:10 AM PLASTER MODEL AND MOLD MAKER IMPRESSION: 1. Probable soft tissue ulcer over the fifth metatarsal head with associated edema in involving the interosseous muscles of the fourth and fifth metatarsals. There is also some edema apparent in the fifth proximal phalanx. Osteomyelitis cannot be excluded. Narrative 08/06/2024 10:10 AM PLASTER MODEL AND MOLD MAKER EXAM: MRI FOOT WO CONTRAST LEFT DATE: [...] from Last 3 Months Insurance JACKELYN ANGULO [id number] Care Teams Loan Servicing Representative Relationship Specialty Start [place] [id number] [phone] PCP - General Internal Medicine 07/24/12
--- OUTSIDE RECORDS SUMMARY | 2024-10-09 14:06 | XMS_ITS | Encounter Summary ---
Author Organization [facility] Healthcare Address [address] [place] [address] Care Team Providers Care Animal Husbandry Manager Name Role Phone Kunal Diana MD Primary Care Provider [phone] Encounter Details Date Type Department Care Team (Late st Contact Info) Description 10/08/2024 8:00 AM CHAIN SAW MECHANIC Procedure visit [facility] [address] [place] [address] Social History Tobacco Use Types Packs/Day [...] on filedocumented in this encounter Care Teams Animal Husbandry Manager Relationship Specialty Start Date End Date Kunal Diana MD [address] [facility] [place] [address] PCP - General Family Medicine 12/08/23 documented as of this encounter
--- OUTSIDE RECORDS SUMMARY | 2024-10-09 14:06 | XMS_ITS | Referral Summary ---
Author Organization [facility] Address [id number] [place] [address] Care Team Providers Care Cloth Examiner Machine Name Role Phone Kunal Diana MD Primary Care Provider [phone] Encounters Date Type Department Care Team Description 10/08/2024 8:00 AM SIGN HANGER SUPERVISOR Procedure visit [address] [address] 10/05/2024 8:00 AM SIGN HANGER SUPERVISOR Procedure visit [address] [address] 10/04/2024 10:00 AM SIGN HANGER SUPERVISOR Orders Only [address] [address] 10/04/2024 8:00 AM SIGN HANGER SUPERVISOR Procedure visit [address] [address] 10/03/2024 8:00 AM SIGN HANGER SUPERVISOR Procedure visit [address] [address] 10/02/2024 8:00 AM SIGN HANGER SUPERVISOR Procedure visit [address] [address] 10/01/2024 Telephone [facility] Primary Care at [address] [place] [address] Kunal Diana MD Call Back 10/01/2024 8:00 AM SIGN HANGER SUPERVISOR Procedure visit [address] [address] 09/28/2024 8:00 AM SIGN HANGER SUPERVISOR Procedure visit [facility] [address] [place] [address] 09/27/2024 Orders Only [facility] Primary Care at [address] [place] [address] Kunal Diana MD 09/27/2024 10:00 AM SIGN HANGER SUPERVISOR Orders Only [facility] [address] [place] [address] 09/27/2024 8:00 AM SIGN HANGER SUPERVISOR Procedure visit [address] [address] 09/26/2024 Telephone [facility] Primary Care at [address] [place] [address] Kunal Diana MD Med Refill 09/26/2024 8:00 AM SIGN HANGER SUPERVISOR Procedure visit [address] [address] 09/25/2024 8:00 AM SIGN HANGER SUPERVISOR Procedure visit [address] [address] 09/24/2024 8:00 AM SIGN HANGER SUPERVISOR Procedure visit [address] [address] 09/21/2024 10:00 AM SIGN HANGER SUPERVISOR Orders Only [facility] [address] [place] [address] 09/21/2024 8:00 AM SIGN HANGER SUPERVISOR Procedure visit [address] [address] 09/20/2024 10:00 AM SIGN HANGER SUPERVISOR Orders Only [facility] [address] [place] [address] 09/20/2024 8:00 AM SIGN HANGER SUPERVISOR Procedure visit [address] [address] 09/19/2024 8:00 AM SIGN HANGER SUPERVISOR Procedure visit [address] [address] 09/18/2024 8:00 AM SIGN HANGER SUPERVISOR Procedure visit [facility] [address] [place] [address] 09/17/2024 Orders Only [facility] Primary Care at [address] [place] [address] Kunal Diana MD 09/17/2024 10:00 AM SIGN HANGER SUPERVISOR Orders Only [facility] [address] [place] [address] 09/17/2024 8:00 AM SIGN HANGER SUPERVISOR Procedure visit [address] [address] 09/14/2024 8:00 AM SIGN HANGER SUPERVISOR Procedure visit [address] [address] 09/13/2024 8:00 AM SIGN HANGER SUPERVISOR Procedure visit [address] [address] 09/13/2024 10:00 AM SIGN HANGER SUPERVISOR Orders Only [facility] [address] [place] [address] 09/12/2024 8:00 AM SIGN HANGER SUPERVISOR Procedure visit [address] [address] 09/11/2024 7:51 AM SIGN HANGER SUPERVISOR - 09/11/2024 11:59 PM SIGN HANGER SUPERVISOR Hospital Encounter [facility] [address] [place] [address] 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) Discharge Disposition: Discharge to home or self care 09/10/2024 Telephone [facility] [address] [place] [address] Vincent Reed MD 09/06/2024 8:45 AM SIGN HANGER SUPERVISOR Orders Only [facility] [address] [place] [address] 08/23/2024 10:27 AM SIGN HANGER SUPERVISOR - 08/23/2024 11:59 PM SIGN HANGER SUPERVISOR Hospital Encounter [facility] Diagnostic Imaging [address] [place] [address] Acute osteomyelitis of metatarsal bone of left foot (HCC) Discharge Disposition: Discharge to home or self care 08/23/2024 10:28 AM SIGN HANGER SUPERVISOR - 08/23/2024 11:59 PM SIGN HANGER SUPERVISOR Hospital Encounter [facility] [address] [place] [address] Acute osteomyelitis of metatarsal bone of left foot (HCC) Discharge Disposition: Discharge to home or self care 08/23/2024 Orders Only [facility] [address] [place] [address] Sharon Aguirre NP Acute osteomyelitis of metatarsal bone of left foot (HCC) (Primary Dx) 08/23/2024 8:45 AM SIGN HANGER SUPERVISOR Orders Only [facility]ound [address] [address] 08/16/2024 9:00 AM SIGN HANGER SUPERVISOR Office Visit [facility] Primary Care at [address] [address] Kunal Diana MD Type 2 diabetes mellitus with hyperlipidemia (HCC) (Primary Dx); Class 3 severe obesity due to excess calories with serious comorbidity and body mass index (BMI) of 40.0 to 44.9 in adult (HCC); Morbid (severe) obesity due to excess calories (HCC); Type 2 diabetes mellitus with hyperglycemia, without long-term current use of insulin (HCC) 08/13/2024 Orders Only [facility] [address] [id number] Sharon Aguirre NP Other acute osteomyelitis of left foot (HCC) (Primary Dx); Type 2 diabetes mellitus with foot ulcer (CODE) (HCC) 08/09/2024 6:28 PM SIGN HANGER SUPERVISOR - 08/09/2024 11:59 PM SIGN HANGER SUPERVISOR Hospital Encounter [facility] [address] [place] [address] Diagnosis unknown Discharge Disposition: Discharge to home or self care 08/09/2024 Orders Only [facility] [address] [place] [address] Sharon Aguirre NP Diabetic ulcer of toe of left foot associated with type 2 diabetes mellitus, with fat layer exposed (HCC) (Primary Dx) 08/09/2024 8:45 AM SIGN HANGER SUPERVISOR Orders Only [facility] [address] [place] [address] 08/02/2024 Orders Only [facility] [address] [place] [address] Sharon Aguirre NP 07/26/2024 9:10 AM SIGN HANGER SUPERVISOR - 07/26/2024 11:59 PM SIGN HANGER SUPERVISOR Hospital Encounter [address] [address] Diabetic ulcer of toe of left foot associated with type 2 diabetes mellitus, with fat layer exposed (HCC) Discharge Disposition: Discharge to home or self care 07/26/2024 Orders Only [facility] [address] [place] [address] Sharon Aguirre NP Diabetic ulcer of toe [...] hyperlipidemia Assessment & Plan (08/16/2024 9:07 AM SIGN HANGER SUPERVISOR): Lab Results Component Value Date HGBA1C [...] 12/08/2023 Assessment & Plan (08/16/2024 9:01 AM SIGN HANGER SUPERVISOR): Wt Readings from Last 3 Encounters: [...] 12/08/2023 Assessment & Plan (08/16/2024 9:01 AM SIGN HANGER SUPERVISOR): Wt Readings from Last 3 Encounters: [...] includes: nutrition counseling and exercise counseling. Immunizations Immunization Administration Dates Next Due DTP [...] Comments Blood Pressure 120/86 08/16/2024 8:45 AM SIGN HANGER SUPERVISOR Pulse 77 08/16/2024 8:45 AM SIGN HANGER SUPERVISOR Temperature 36.4 C (97.5 F) 03/22/2024 12:37 PM CDT Respiratory Rate 16 08/16/2024 8:45 AM SIGN HANGER SUPERVISOR Oxygen Saturation 98% 08/16/2024 8:45 AM SIGN HANGER SUPERVISOR Inhaled Oxygen Concentration - - Weight 137.4 kg (303 lb) 08/16/2024 8:45 AM SIGN HANGER SUPERVISOR Height 177.8 cm (5' 10 ) 08/16/2024 8:45 AM SIGN HANGER SUPERVISOR Body Mass Index 43.48 08/16/2024 8:45 AM SIGN HANGER SUPERVISOR Plan of Treatment Not on file Procedures Procedure Name Priority Date/Time Associated Diagnosis Comments POCT GLUCOSE DEVICE Routine 09/12/2024 8 :11 AM SIGN HANGER SUPERVISOR IR PICC LINE PLACEMENT > 5 YEARS Schedule Routine, Read Routine (OP Routine) 09/11/2024 9:12 AM SIGN HANGER SUPERVISOR 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) ECG 12-LEAD Routine 08/23/2024 11:00 AM SIGN HANGER SUPERVISOR Acute osteomyelitis of metatarsal bone of left foot (HCC) XR CHEST PA LATERAL 2 VIEWS Schedule Routine, Read Routine (OP Routine) 08/23/2024 10:53 AM SIGN HANGER SUPERVISOR Acute osteomyelitis of metatarsal bone of left foot (HCC) POCT HEMOGLOBIN A1C Routine 08/16/2024 8 :55 AM SIGN HANGER SUPERVISOR Type 2 diabetes mellitus with hyperlipidemia (HCC) MSK MR OUTSIDE CONSULT Routine 08/09/2024 6:28 PM SIGN HANGER SUPERVISOR Diagnosis unknown AEROBIC AND ANAEROBIC CULTURE AND GRAM STAIN Routine 07/26/2024 9:10 AM SIGN HANGER SUPERVISOR Diabetic ulcer of toe of left [...] * (ABNORMAL) POCT glucose (09/12/2024 8:11 AM SIGN HANGER SUPERVISOR) Glucose, POC 217(H) 70 - 199 mg/dL Blood 09/12/2024 8:11 AM SIGN HANGER SUPERVISOR 09/12/2024 8:11 AM SIGN HANGER SUPERVISOR us Meng Messina MD LAB POCT ORDERABLES - RIVERA CE Final Result GARY [address] Department [place] [address] * IR PICC Line Placement Over 5 Years of Age (09/11/2024 9:12 AM SIGN HANGER SUPERVISOR) Anatomical Region Laterality Modality Body N/A X-Ray Angiograph y 09/11/2024 10:0 3 AM SIGN HANGER SUPERVISOR Impressions 09/11/2024 10:03 AM SIGN HANGER SUPERVISOR Successful PICC placement using ultrasound guidance. Electronically signed by: Hieu Capone M.D. Narrative 09/11/2024 10:03 AM SIGN HANGER SUPERVISOR EXAMINATION: IR PICC LINE PLACEMENT OVER [...] After dilating the tract, a 45 cm, 5-Micronesian dual-lumen PICC was inserted through the peel-away [...] After dilating the tract, a 45 cm, 5-Micronesian dual-lumen PICC was inserted through the peel-away [...] by: Hieu Capone M.D. Ciaran Nogueira MD [facility] IR PROCEDURES Final Result * ECG 12 lead (08/23/2024 11:00 AM SIGN HANGER SUPERVISOR) 08/23/2024 10:4 8 AM SIGN HANGER SUPERVISOR Narrative [facility] - 08/23/2024 3:30 PM SIGN HANGER SUPERVISOR Vent Rate: 68 bpm RR Interval: 882 msec LA Interval: 160 msec QRS Duration: 102 msec QT Interval: 352 msec QTC Interval: 368 msec P-R-T Harrison: 21 - 49 - 26 degrees IMPRESSION: SINUS RHYTHM NORMAL ECG Electronically Signed By: Dr. Braulio Winter Sharon Aguirre PRINTED CIRCUIT BOARDS SOLDER LEVELER ECG ORDERABLES Fin al Result [facility] * X-ray chest 2 views (08/23/2024 10:53 AM SIGN HANGER SUPERVISOR) Anatomical Region Laterality Modality Body, Chest N/A Computed Radiogr aphy 08/23/2024 10:5 9 AM SIGN HANGER SUPERVISOR Impressions 08/23/2024 10:59 AM SIGN HANGER SUPERVISOR Normal study. Electronically signed by: Leo Price M.D. Narrative 08/23/2024 10:59 AM SIGN HANGER SUPERVISOR EXAMINATION: XR CHEST PA LATERAL 2 [...] (ABNORMAL) POCT hemoglobin A1c (08/16/2024 8:55 AM SIGN HANGER SUPERVISOR) Hemoglobin A1C, POC 9.3 4.0 - 5.6 % Capillary blood 08/16/2024 8 :55 AM SIGN HANGER SUPERVISOR Kunal Diana MD POINT OF CARE TEST ORDERABLES Fi nal Result * MSK MR Outside Consult (08/09/2024 6:28 PM SIGN HANGER SUPERVISOR) Anatomical Region Laterality Modality N/A Magnetic Resonan ce 08/10/2024 10:3 0 AM SIGN HANGER SUPERVISOR Impressions 08/10/2024 1:17 PM SIGN HANGER SUPERVISOR Soft tissue defect/ulceration lateral to the [...] images may or may not represent the qagan t[place]agungin source data set and thus may contain changes that may lower the accuracy of this second-opinion interpretation. Dictated by: Charley Galvan MD, PhD The radiology attending physician has personally reviewed this study, and had reviewed and/or edited this written report and agrees with it. Electronically signed by: Turner Mir MD Narrative 08/10/2024 1:17 PM SIGN HANGER SUPERVISOR EXAMINATION: RADIOLOGY CONSULTATION ON OUTSIDE IMAGING STUDY STUDY INITIALLY PERFORMED: 08/06/2024 at [facility]. TYPE OF STUDY: Multiple MR images [...] IMAGING STUDY STUDY INITIALLY PERFORMED: 08/06/2024 at [facility]. TYPE OF STUDY: Multiple MR images [...] images may or may not represent the qagan [place] source data set and thus may contain [...] stain Wound Foot, left (07/26/2024 9:10 AM SIGN HANGER SUPERVISOR) Direct Specimen Exam Stain: Few polymorphonuclear leukocytes seen. Moderate Gram Positive Cocci Comment:Testing performed by : [facility], [address] [facility], [place]., [address] Report Final Report: Moderate Streptococcus agalactiae (Group [...] allergic patients, please contact the laboratory at [phone] to request susceptibility testing * * * * * * * * * * * * * * * * * * * * Few Staphylococcus aureus Methicillin susceptible (MSSA) by penicillin binding protein 2a (PBP2a) testing. Few Mixed microorganisms. (.) GARY SULLIVAN Comment:Testing performed by : [facility], [address] [place]., [address] Organism STREPTOCOCCUS AGALACTIAE (GROUP B STREPTOCOCCI) GARY Organism STAPHYLOCOCCUS AUREUS GARY Organism MIXED MICROORGANISMS. GARY Wound (Foot, left) 07/26/2024 9:10 AM SIGN HANGER SUPERVISOR 07/26/2024 4:18 PM SIGN HANGER SUPERVISOR Narrative GARY - 07/30/2024 1:43 PM SIGN HANGER SUPERVISOR Specimen received on an ESwab. Testing performed by [facility] ([phone]) Specimens submitted from normally sterile body sites [...] - GENERAL ORDERABLES Final Result GARY SULLIVAN [address] Department [place] [address] * Hepatitis C antibody (04/18/2024 12:16 PM CDT) Hep C Ab NON-REACTI VE NON-REACT CHANDRAKANT [facility] Comment: HCV antibody was non-reactive. There is no laboratory evidence of HCV infection. In most cases, no further action is required. However, if recent HCV exposure is suspected, a test for HCV RNA (test code 38211) is suggested. For additional information please refer to http://education.Briggo/faq/UMO16q0 (This link is being provided for informational/ educational purposes only.) 04/18/2024 12:1 6 PM CDT 04/18/2024 12:16 PM CDT Kunal Diana MD LAB MICROBIOLOGY - GENERAL ORDER CORINNE Final Result Performing Organization Address [facility] Co de Phone Number [facility] [address] [place] [address] * (ABNORMAL) Albumin Creatinine Ratio, Urine (04/18/2024 12:16 PM CDT) Pathologist [facility] Creatinine, ur 169 20 - 320 mg/dL [...] ORDERABLES Final Resul t Performing Organization Address [facility] Co de Phone Number [facility] [address] [place] [address] * (ABNORMAL) Lipid panel (04/18/2024 12:16 PM CDT) Cholesterol 260(H) <200 mg/dL [facility] HDL 45 > OR = 40 mg/dL [facility] Triglycerides 942(H) <150 mg/dL [facility] Comment: If a non-fasting specimen was [...] LDL-C. Marcelo SS et al. KIRA. 2013;310(19): 3539-3281 (http://education.Apostrophe Apps/faq/VMR368) Chol/HDL ratio 5.8(H) <5.0 (calc) [facility]va [facility] Non-HDL, (LDL+VLDL) 215(H) <130 mg/dL (calc) [facility] Comment: For patients with diabetes plus 1 major ASCVD risk factor, treating to a non-HDL-C goal of <100 mg/dL (LDL-C of <70 mg/dL) is considered a therapeutic option. Blood 04/18/2024 12:1 6 PM CDT 04/18/2024 12:16 PM CDT us Kunal Diana MD LAB BLOOD ORDERABLES Final Resul t [facility] [address] [place] [address] * (ABNORMAL) Comprehensive metabolic panel (04/18/2024 12:16 PM CDT) Glucose 198(H) 65 - 99 mg/dL [facility] Comment: Fasting reference interval For someone without known diabetes, a glucose value >125 mg/dL indicates that they may have diabetes and this should be confirmed with a follow-up test. BUN 13 7 - 25 mg/dL [facility] Creatinine 0.74 0.60 - 1.29 mg/dL [facility] Malcolm eGFR 115 > OR = 60 mL/min/1.7 3m2 [facility] BUN/creat ratio SEE NOTE: 6 - 22 (calc) [facility] Malcolm Comment: Not Reported: BUN and Creatinine are within reference range. Sodium 133(L) 135 - 146 mmol/L [facility] Malcolm Potassium, pl 4.3 3.5 - 5.3 mmol/L [facility] Chloride 98 98 - 110 mmol/L [facility] Fowler CO2 25 20 - 32 mmol/L [facility] Malcolm Calcium 9.3 8.6 - 10.3 mg/dL [facility] Malcolm Protein, sr 7.6 6.1 - 8.1 g/dL [facility] Fowler Albumin 4.4 3.6 - 5.1 g/dL [facility] GLOBULIN 3.2 1.9 - 3.7 g/dL (calc) [facility] Malcolm Alb/glob ratio 1.4 1.0 - 2.5 (calc) [facility] Fowler Bilirubin, total 0.6 0.2 - 1.2 mg/dL [facility] Malcolm Alk phos 55 36 - 130 U/L [facility] Malcolm AST 28 10 - 40 U/L [facility] Malcolm ALT (SGPT) 32 9 - 46 U/L [facility] Fowler Blood 04/18/2024 12:1 6 PM CDT 04/18/2024 12:16 PM CDT us Kunal Diana MD LAB BLOOD ORDERABLES Final Resul t [facility] [address] [place] [address] from Last 3 Months or Most Recently Relevant to Health Maintenance Insurance [employer] Care Teams Cloth Examiner Machine Relationship Specialty Start Date End Date Kunal Diana MD [address] [place] [address] PCP - General Family Medicine 12/08/23
--- OUTSIDE RECORDS SUMMARY | 2024-10-09 14:06 | XMS_ITS | Encounter Summary ---
Author Organization [facility] Healthcare Address [address] [place] [address] Care Team Providers Care Storage Engineer Name Role Phone Kunal Diana MD Primary Care Provider [phone] Reason for Visit * Reason Onset Date Comments Med Refill 09/26/2024 Encounter Details Date Type Department Care Team (Late st Contact Info) Description 09/26/2024 Telephone [facility] Primary Care at [address] [address] Kunal Diana MD [address] [place] [address] Med Refill Social History Tobacco Use [...] Kim Sims MA - 09/27/2024 10:32 AM ASSISTANT EDITOR Pt aware STANT EDITOR * Telephone Encounter - Kunal Diana MD - 09/27/2024 10:10 AM CST Rx sent, I would recommend tryuing to reach otu to the ID doctor if he needs further refills STANT EDITOR * Telephone Encounter - Kym Serrano - [...] needed, Pharmacy(s) medication(s) should be sent to: [id number] AT [facility] [address] [phone] Additional Comments: none Does message need to be routed? Yes-Action Needed STANT EDITOR documented in this encounter Plan of Treatment Not on file documented as of this encounter Visit Diagnoses Not on filedocumented in this encounter Care Teams Storage Engineer Relationship Specialty Start Date End Date Kunal Diana MD [address] [place] [address] PCP - General Family Medicine 12/08/23 documented as of this encounter
[2024-10-09 20:10] LABS: Hematocrit 39.8 % (42.0-52.0); Hemoglobin 13.4 g/dL (14.0-18.0); Mean Corpuscular HGB Conc 33.7 g/dl (32-36); Mean Corpuscular Hemoglobin 29.5 pg (26-34); Mean Corpuscular Volume 87.5 fl (80-100); Mean Platelet Volume 12.1 fl (7.4-10.4); Platelet Count Result 171 k/mm3 (150-375); Red Blood Count 4.55 M/mm3 (4.6-6.20); Red Cell Distribution Width 13.4 % (11.5-14.5); White Blood Count 8.8 K/mm3 (4.5-10.0)
[2024-10-09 20:46] LABS: Alanine Aminotransferase 31 U/L (6-50); Albumin Level 4.1 g/dL (3.5-5.1); Alkaline Phosphatase 53 U/L (38-126); Anion Gap 11 mmol/L (4-12); Aspartate Amino Transferase 25 U/L (17-59); Bilirubin,Total 0.4 mg/dL (0.2-1.3); Blood Urea Nitrogen 17 mg/dL (9-20); CRP < 0.5 mg/dL (<1.0); Calcium 9.6 mg/dL (8.4-10.2); Carbon Dioxide 26 mmol/L (22-30); Chloride 102 mmol/L (98-107); Estimated Glomerular Filt Rate > 60; Glucose 90 mg/dL (65-110); Potassium 3.9 mmol/L (3.4-5.0); Sodium 139 mmol/L (137-145)
[2024-10-09 21:31] LABS: Erythrocyte Sedimentation Rate 25 mm/hr (0-20)
== END 2024-10-09 13:58 | disposition home or self-care (01) ==
PROVIDERS: PCP Internal Medicine; Visit Provider Internal Medicine
DX: L97.522 Non-pressure chronic ulcer of other part of left foot with fat layer exposed (principal)
CPT/HCPCS: 80053; 85027; 85652; 86140

== ENCOUNTER 2025-02-07 19:58 | Emergency (ER) | payer BC, SELFPAY ==
--- OUTSIDE RECORDS SUMMARY | 2025-02-07 20:01 | XMS_ITS | Data Portability ---
Author Organization [place] - [facility], Main Office Address [address] [place] [address] Assessment Encounter Date Assessment Date Assessment LastModified by Organization Details LastModified Time 11/15/2024 11/15/2024 This note is dictated and transcribed by [employer]. Bankruptcy Law Specialist variances may occur. Despite proofreading, typographical errors may occur. Occasional wrong-word or '[id number]' substitutions may have occurred due to the inherent limitations of voice recording. Read the chart carefully and recognize, using context, where substitutions have occurred. [email or web address] Not available 11/15/2024 15:22:07 11/26/2024 11/26/2024 This note is dictated and transcribed by [employer]. Bankruptcy Law Specialist variances may occur. Despite proofreading, typographical errors may occur. Occasional wrong-word or '[id number]-vxmp' substitutions may have occurred due to the inherent limitations of voice recording. Read the chart carefully and recognize, using context, where substitutions have occurred. [email or web address] Not available 12/13/2024 10:47:35 Plan of Treatment Reminders Order Date Submit Date Provider Last Modified By Organization Details Last Modified Time Details Appointments Establish ed Patient 15 2024 01:30P Prashant Murray DPM Not available Not available Not available Lab None recorded. Referral None recorded. Procedures None recorded. Surgeries None recorded. Imaging None recorded. Medication Orders None recorded. Patient TargetsNo targets recorded. Patient InstructionsNo instructions recorded. Reason for Referral None Reported. Problems Name Problem SNOMED Code Status Onset Date Resolution Date Notes Provider Name and Address Organization Details Recorded Time Liver function tests outside reference range 540117251 Active 2019 Not Available [facility] 00:49:23 Neuropathy due to diabetes mellitus 078119573 Active 2018 Not Available [facility] 3 00:49:23 Hypertrigl yceridemia 188243693 Active 2019 Not Available [facility] 3 00:49:23 Pain of toe of right foot 2785813216318 Active 2021 Not Available [facility] 3 00:49:23 Hyperlipid emia 36512661 Active 2019 Not Available [facility] 3 00:49:23 Essential hypertensi on 51448630 Active 2018 Not Available [facility] 3 00:49:23 Cellulitis of toe 38011047 Active 2021 Not Available [facility] 3 00:49:23 Diabetes mellitus 34076137 Active 2018 Not Available [facility] 3 00:49:23 Sleep apnea 36127643 Active 2019 Not Available [facility] 3 00:49:23 Dystrophia unguium 92021145 Active 2021 Not Available [facility] 3 00:49:23 Diabetic on oral treatment 543246520 Active 2024 Virgil Murray DPM [address], [address], [place], [address] , [facility] 5 15:22:27 Long-term current use of drug therapy 887619357 Active 2024 Virgil Murray DPM [address], [address], [place], [address] , [facility] 5 15:22:28 Obesity 136142951 Active 2024 Virgil Murray DPM [address], [address], [place], [address] , [facility] 5 16:53:08 Blood blister 059980344 Active 2024 Virgil Murray DPM [address], [address], [place], [address] , [facility] 5 10:47:24 Problem Notes None recorded. Medical Equipment None Reported. Allergies No known drug allergies Medications Name Sig Start Date Stop Date Status Note LastModified by Organization Details LastModified Time cyclobenzap rine 10 mg tablet TAKE 1 TABLET BY MOUTH NIGHTLY NEEDED FOR MUSCLE SPASMS FOR UP TO 12 DAYS 01/25 completed Not Available Not Available Not Available metformin 500 mg tablet TK 1 T PO D 07/24 completed Not Available Not Available Not Available gabapentin 600 mg tablet TAKE 1 TABLET BY MOUTH EVERY DAY AT BEDTIME active Not Available Not Available No t Available doxycycline hyclate 100 mg capsule TAKE 1 CAPSULE BY MOUTH TWICE DAILY WITH FOOD FOR 7 DAYS. DO NOT LAY DOWN FOR 30 MINUTES AFTER TAKING. active Not Available Not Available No t Available fluconazole 200 mg tablet TAKE 1 TABLET BY MOUTH 1 TIME active Not Available Not Available No t Available lisinopril 20 mg tablet TAKE 1 TABLET BY MOUTH EVERY DAY active Not Available Not Available No t Available metronidazo le 500 mg tablet TAKE 1 TABLET BY MOUTH EVERY 8 HOURS active Not Available Not Available No t Available glimepiride 2 mg tablet TK 1 T PO BID active Not Available Not Available No t Available amitriptyli ne 25 mg tablet Take 1 tablet every day by oral route at bedtime. active Not Available Not Available No t Available amitriptyli ne 10 mg tablet TK 1 T PO QD active Not Available Not Available No t Available cephalexin 500 mg capsule Take 1 capsule every 6 hours by oral route as directed for 10 days. active Not Available Not Available No t Available glimepiride 4 mg tablet TAKE 1 TABLET BY MOUTH TWICE DAILY active Not Available Not Available No t Available nystatin-tr iamcinolone 100,000 unit/g-0.1 % topical cream APPLY TOPICALLY TO THE AFFECTED AREA TWICE DAILY active Not Available Not Available No t Available gabapentin 300 mg capsule TAKE 1 CAPSULE BY MOUTH THREE TIMES DAILY 01/25 completed Not Available Not Available Not Available mupirocin 2 % topical ointment APPLY TOPICALLY TO THE AFFECTED AREA WITH A EVERY-TIP TWICE DAILY FOR 7 DAYS. active Not Available Not Available No t Available ibuprofen 600 mg tablet TAKE 1 TABLET BY MOUTH THREE TIMES DAILY WITH FOOD 01/25 completed Not Available Not Available Not Available metformin ER 500 mg tablet,exte nded release 24 hr TAKE 2 TABLETS BY MOUTH TWICE DAILY active Not Available Not Available No t Available amoxicillin 875 mg-potassiu m clavulanate 125 mg tablet TAKE 1 TABLET BY MOUTH TWICE DAILY FOR 10 DAYS active Not Available Not Available No t Available rosuvastati n 20 mg tablet TAKE 1 TABLET BY MOUTH DAILY active Not Available Not Available No t Available metformin ER 1,000 mg tablet,exte nded release 24hr (osmotic) Take 1 tablet every day by oral route. 05/21 completed Not Available Not Available Not Available fenofibrate 160 mg tablet TAKE 1 TABLET BY MOUTH EVERY DAY active Not Available Not Available No t Available Micro Thin Lancets 33 gauge USE BID TO TEST BLOOD SUGAR 01/25 completed Not Available Not Available Not Available Accu-Chek Compact Plus Test Strips Take 1 strip twice a day by miscell. route. 02/16 completed Not Available Not Available Not Available Accu-Chek Guide test strips USE TO TEST BID active DX E11.9 Not Available Not Available Not Available Accu-Chek Guide Me Glucose Meter USE UTD 08/23 completed Not Available Not Available Not Available Mounjaro 7.5 mg/0.5 mL subcutaneou s pen injector ADMINISTE R 7.5 MG UNDER THE SKIN EVERY 7 DAYS active Not Available Not Available No t Available Mounjaro 5 mg/0.5 mL subcutaneou s pen injector ADMINISTE R 5 MG UNDER THE SKIN EVERY 7 DAYS active Not Available Not Available No t Available Mounjaro 2.5 mg/0.5 mL subcutaneou s pen injector INJECT 2.5 MG UNDER THE SKIN ONCE A WEEK FOR 4 WEEKS. active Not Available Not Available No t Available Ozempic 0.25 mg or 0.5 mg (2 mg/3 mL) subcutaneou s pen injector INJECT 0.5 MG UNDER THE SKIN EVERY 7 DAYS active Not Available Not Available No t Available Vitals Date Recorded Respiratory rate Body temperature Heart rate Systolic blood pressure Diastolic blood pressure Provider Name and Address Organization Details Last Updated DateTime 5 16 /min 98 [degF] 88 /min 130 mm[Hg] 76 mm[Hg] Lisa Luz [place] [facility] 5 14:52:58 Date Recorded Body height Body mass index (BMI) Body weight Provider Name and Address Organization Details Last Updated DateTime 11/15/2024 180.34 cm 40.4 kg/m2 000278.79 g Magdalena Fox [place] [employer] [facility] [employer] [facility] 11/15/2024 14:47:00 Date Recorded Body height Body mass index (BMI) Body weight Heart rate Respiratory rate Body temperature Oxygen saturation Oxygen saturation in Arterial blood by Pulse oximetry Systolic blood pressure Diastolic blood pressure Provider Name and Address Organization Details Last Updated DateTime 5 180.34 cm 40.4 kg/m2 683343. 79 g 80 /min 16 /min 98 [degF] 98 % 98 % 130 mm[Hg] 70 mm[Hg] Lisa Luz [place] [employer] [facility] [employer] [facility] 5 14:05:37 Date Recorded Body height Provider Name an d Address Organization Details Last Updated DateTime 01/25/2022 180.34 cm Not Available [facility] 3 00:47:02 Date Recorded Body mass index (BMI) Body height Oxygen saturation Oxygen saturation in Arterial blood by Pulse oximetry Heart rate Body temperature Body weight Systolic blood pressure Diastolic blood pressure Provider Name and Address Organization Details Last Updated DateTime 1 43.2 kg/m2 180.34 cm 98 % 98 % 74 /min 97.9 [degF] 866859. 63 g 132 mm[Hg] 80 mm[Hg] Not Available [facility] 3 00:47:02 Social History Question Answer Notes LastModified by Organizat ion Details LastModified Time Tobacco Smoking Status Never Smoker Not Available [facility] 10/20/2022 00:43:27 Do You Have An Advance Directive? No [id number] Information not available 10/20/2022 What Is Your Level Of Caffeine Consumption? Occasional [id number] Information not available 10/20/2022 How Much Tobacco Do You Chew? None [id number] Information not available 10/20/2022 What Type Of Diet Are You Following? REGULAR [id number] Information not available 10/20/2022 Which Illicit Or Recreational Drugs Have You Used? None [id number] Information not available 10/20/2022 What Was The Date Of Your Most Recent Tobacco Screening? 11/15/2024 [email or web address] Information not available 11/15/2024 Have You Ever Been Counseled For Unhealthy Alcohol Use? No [id number] Information not available 10/20/2022 How Much Tobacco Do You Smoke? No [id number] Information not available 10/20/2022 Do You Use Sunscreen Routinely? Yes [id number] Information not available 10/20/2022 Has Tobacco Cessation Counseling Been Provided? No [id number] [id number] Information not available 10/20/2022 Sex: Male Functional Status Question Answer Note LastModified by Organizat ion Details LastModified Time Do you use any illicit or recreational drugs? No [id number] Information not available 10/20/2022 Do you or have you ever used any other forms of tobacco or nicotine? No [id number] Information not available 10/20/2022 What is your level of alcohol consumption? Occasional [id number].[id number] Information not available 10/20/2022 Do you or have you ever used smokeless tobacco? Never used smokeless tobacco MIGRATION.[id number] Information not available 10/20/2022 What is your occupation? [employer] MIGRATION.[id number] Information not available 10/20/2022 Do you or have you ever used e-cigarettes or vape? Never used electronic cigarettes [id number].[id number] Information not available 10/20/2022 What is your exercise level? Occasional [id number] Information not available 10/20/2022 Mental Status None recorded. Family History Relationship Description Onset Age of this Age Resolved Age Notes LastModified by Organization Details LastModified Time Father Hypertensive disorder [id number] Not available 10/20/2022 00:45:15 Paternal Grandfather Diabetes mellitus [id number] Not available 10/20/2022 00:45:15 Paternal Grandfather Hypertensive disorder [id number] Not available 10/20/2022 00:45:15 Paternal Grandfather Heart disease [id number] Not available 10/20/2022 00:45:15 Medical History Condition Response DIABETES, TYPE Y OBESITY Y HYPERTENSION Y HIGH CHOLESTEROL / HYPERLIPIDEMIA Y Immunizations Vaccine Type Date Status Note Provider Nam e and Address Organization Details Recorded Time SARS-COV-2 (COVID-19) vaccine, UNSPECIFIED completed Not Available [facility] 10/20/2022 00:54:29 SARS-COV-2 (COVID-19) vaccine, UNSPECIFIED completed Not Available [facility] 10/20/2022 00:54:29 Past Encounters Encounter ID Performer Location Encounter Start Date Encounter Closed Date Diagnosis/Indication Diagnosis SNOMED-CT Code Diagnosis ICD10 Code Diagnosis Note [id number] Margarito Ramos MD [facility] Internal [address] [place] [address] 02/16/2021 00:00:00 02/16/2021 11:06:38 [id number] Virgil Murray DPM _ANDRÉS_Prashant IGRATION_ DEFAULT_1 _1 , 01/25/2022 00:00:00 02/17/2022 13:53:37 [id number] Virgil Murray DPM [facility] Podiatry [place] [address] [place] [address] 11/15/2024 14:42:20 11/16/2024 13:39:23 Diabetes mellitus 82399036 E13.42 Continue diabetic control per PCP recommenda tions Diabetic o n oral treatment 491722516 Z79.84 Long-term current use of drug therapy 148894189 Z79.85 Dystrophia unguium 27556 009 L60.3 Nails 1 through 10 were debrided with sharp mechanical debridemen t without incident. Nails were debrided and greater than 50% length and thickness where needed. Obesity 882647597 E66.9 recommend weight loss [id number] Virgil Murray DPM [facility] Pod[facility] [place] [address] [place] [address] 11/26/2024 13:49:43 12/18/2024 11:21:23 Blood blister 480559435 T14.8XXA stable noninfecte ddebrided without incidentre solve with debridemen t- no open woundsreco mmend wide shoe gear to prevent pressure and recurrence Health Concerns Section Related Observation LastModified by Organization Detai ls LastModified Time None Recorded Concern Status LastModified by Organization Details LastModified Time None Recorded Advance Directives Directive N: Payers Insurance Date Sequence Insurance Name Policy Number Policy Richter Covered Member ID Richter Member ID Guarantor Name 12/18/2024 1 [facility] [id number] Kofi Tang [id number] Kofi Tang Notes Date Note Type Note Provider Name and Address Organization Details Recorded Time 11/15/2024 text/html . Patient is a 44-year-old male diabetic who presents the office for diabetic foot care. patient states overall he is doing well he states that he recently had a wound under the left 5th metatarsal head which is healed. Patient states he continues to follow with wound care for this issue to which he had osteomyelitis and underwent hyperbaric oxygen and IV antibiotics. Patient denies any other complaints. Virgil Murray DPM [address], [place], [address], [employer] 11/15/2024 16:53:31 11/26/2024 text/html . Patient is a 44-year-old male who presents the office with complaints of a discolored callus to the distal great toe on the right foot. Patient states that he recently noticed a dark blue area on the end of his toe which has turned black. Patient developed a hematoma under the callus which has matured. Patient denies any signs of infection. I did review the this is likely secondary to his shoes that he recently got. I recommended that he get a shoe with a higher toe box or slightly larger because it is causing friction or rubbing which caused the hematoma of the skin. Patient denies any fever, chills, nausea vomiting. Patient denies any other complaints. Virgil Murray DPM [address], [place], [address], [employer] 12/13/2024 10:48:23
--- OUTSIDE RECORDS SUMMARY | 2025-02-07 20:01 | XMS_ITS | Patient Health Record ---
Author Organization [employer] Address [address] [facility]. [address] [place] [address] Care Team Providers Care Manufacturing Chief Engineer Name Role Phone Retired Brain MARCANO, Hasmukh Primary Care Pro vider Unavailable Reason For Referral No Information Plan Of Treatment No Information Insurance Providers Payer Name Payer Address Payer Phone Subscriber Number Group Number Insured Name Patient Relationship to Insured Coverage Start Date Coverage End Date [facility] Choice Plus E2 [address] [address] [place] [address] [id number] Kofi Tang Self - patient is the insured
--- OUTSIDE RECORDS SUMMARY | 2025-02-07 20:01 | XMS_ITS | Clinical Summary ---
Author Organization [facility] Address [address] [place] [address] Phone Care Team Providers Care Inseminator Name Role Phone Hasmukh De La Paz MD Primary Care Provider Unavailable Allergies No known active allergies Medications OMEGA-3 [...] ination at a health care facility 01/18/2012 Immunizations Immunization Administration Dates Next Due (ADACEL/BOOSTRIX)(10 [...] on file Legal Sex Male 10:28 AM [employer] Gender Identity Not on file Sexual Orientation Not on file Last Filed Vital Signs Vital Sign Reading Time Taken Comments Blood Pressure 134/86 08/10/2013 8:06 AM [employer] Pulse 76 08/10/2013 8:06 AM [employer] Temperature 37.1 C (98.8 F) 08/10/2013 8:06 AM [employer] pt took tylenol this morning Respiratory Rate 16 08/10/2013 8:06 AM [employer] Oxygen Saturation 97% 08/10/2013 8:0 6 AM [employer] Inhaled Oxygen Concentration - - Weight 170.1 kg (375 lb) 08/10/2013 8:0 6 AM [employer] Height 180.3 cm (5' 11) 08/10/2013 8:0 6 AM [employer] Body Mass Index 52.3 08/10/2013 8:06 AM [employer] Plan of Treatment Health Maintenance Due Date Last Done Comments DIABETES ANNUAL FOOT EXAM 1998 DIABETES ANNUAL RETINAL EXAM 1998 DIABETES MICROALBUMIN ANNUAL SCREEN 1998 LDL CHOLESTEROL ANNUAL 1998 HEPATITIS B VACCINES (1 of 3 - 19+ 3-dose series) 1999 INFLUENZA VACCINE (#1) 2024 COVID-19 Vaccine ( season) 2024 10/20/2020, 09/26/2020 DIABETES HBA1C Q 6 MONTHS 09/22/2024 03/22/2024 DTAP/TDAP/TD VACCINES (6 - Td or Tdap) 03/26/2031 03/26/2021, 01/18/2012, 06/24/1986, Additional history exists HPV VACCINES Aged Out No longer eligi ble based on patient's age to complete this topic Insurance [facility] Address: [facility] [id number] [place] [address] JACKELYN ANGULO [id number] Care Teams Inseminator Relationship Specialty Start Date End Date Hasmukh De La Paz MD PCP - General Internal Medicine 07/24/12
[2025-02-07 20:13] VITALS: BP 175/104; PULSE 67; RESP 18; TEMP 36.6; O2SAT 100
--- NOTE | 2025-02-07 20:59 | ED.DENTAL ---
HPI - Dental/Oral General Chief complaint: Dental/Oral Stated complaint: dental pain Time Seen by Provider: 02/07/25 20:31 History of Present Illness HPI Narrative: 44-year-old male presents emergency department for left lower dental pain for 1 day. Patient states he was eating chips earlier and had a chip stuck in his left lower gumline. He was able to remove the chip but states his pain is continue to worsen throughout the day. States he took Tylenol ibuprofen earlier today with minimal improvement. He did contact his dentist and has an appointment in 4 days. Denies difficulty breathing or swallowing, denies fever. Related Data Home Medications ?Medication ?Instructions ?Recorded ?Confirmed ?Last Taken ?Type glimepiride 4 mg tablet 4 mg PO DAILY 08/25/22 08/25/22 Unknown History rosuvastatin 20 mg tablet 20 mg PO DAILY 08/25/22 08/25/22 Unknown History Allergies Allergy/AdvReac Type Severity Reaction Status Date / Time No Known Allergies Allergy Verified 02/07/25 20:18 Review of Systems Review of Systems: All systems reviewed & are unremarkable except as noted in HPI and below PMFSH Past Medical History Medical History High blood sugar Family History Family History Father Hypertension Social History Social History Smoking status: Never smoker Alcohol intake: never Exam Narrative: GENERAL: Well-appearing, well-nourished, and in no acute distress. HEAD: Normocephalic, atraumatic. EYES: EOMI. ENT: Nares clear, no rhinorrhea or epistaxis. Mucous membranes moist. Bilateral TMs are lan nonbulging with normal canals. Significant dental decay and tooth #20 with surrounding gingival tenderness. No foreign bodies or fluctuance, no spontaneous drainage. Floor of mouth is soft without crepitus. No facial edema or submandibular edema. No trismus. Patient is tolerating secretions and speaking in full sentences. NECK: Supple. CHEST: Clear to auscultation. No respiratory distress. HEART: Regular rate and rhythm. No murmur heard. Normal peripheral pulses. EXTREMITIES: Normal range of motion. No edema. SKIN: Warm, dry, no rash. NEURO: No focal deficits. Alert and oriented x3 Course Vital Signs Vital signs: Vital Signs Temperature 97.8 F 02/07/25 20:13 Pulse Rate 67 02/07/25 20:13 Respiratory Rate 18 02/07/25 20:13 Blood Pressure 175/104 H 02/07/25 20:13 Pulse Oximetry 100 02/07/25 20:13 Oxygen Delivery Room Air 02/07/25 20:13 Temperature 97.8 F 02/07/25 20:13 Pulse Rate 67 02/07/25 20:13 Respiratory Rate 18 02/07/25 20:13 Blood Pressure 175/104 H 02/07/25 20:13 Pulse Oximetry 100 02/07/25 20:13 Oxygen Delivery Room Air 02/07/25 20:13 MDM - Dental/Oral MDM Narrative Medical decision making narrative: 44-year-old male presents emergency department for left lower dental pain. Patient was eating chips earlier and had a piece of chip stuck in his tooth which he was able to remove, however the pain is persisted. Vitals with elevated blood pressure. Patient is afebrile nontoxic appearing. Exam is significant for remarkable tooth decay to tooth 20. No foreign bodies or evidence of periapical abscess. No evidence of deep space infection. Patient is tolerating secretions and speaking in full sentences with no airway compromise. Will start the patient on Augmentin and provide Tylenol, ibuprofen and viscous lidocaine with oxycodone p.r.n. for breakthrough pain. Advised to follow-up with his dentist at his upcoming appointment and discussed strict ED return precautions. He and his are agreeable with the plan verbalized understanding. Discharged in stable condition. Discharge Plan Discharge Clinical Impression: Dental caries Patient Disposition: Home Condition: Stable Instructions: Antibiotic Form, Toothache (ED) Additional Instructions: Please take the medications as directed. Take Tylenol, ibuprofen and use with his lidocaine as directed as needed for pain. Take oxycodone as needed for breakthrough pain. Follow-up closely with her dentist. Return to the emergency department if you develop a fever, difficulty breathing or swallowing, or other concerning symptoms. Patient Language: Divehi Prescriptions: New amoxicillin-pot clavulanate 875-125 mg tablet 1 tablet PO Q12H Qty: 14 0RF acetaminophen 500 mg capsule 500 mg PO Q6H PRN (Reason: pain) Qty: 14 0RF ibuprofen 800 mg tablet 800 mg PO TID PRN (Reason: pain) Qty: 20 0RF oxycodone 5 mg tablet 5 mg PO Q6H PRN (Reason: pain) Qty: 10 0RF lidocaine HCl [Lidocaine Viscous] 2 % solution 1 applic mucous membrane QID PRN (Reason: pain) Qty: 100 0RF No Action glimepiride 4 mg tablet 4 mg PO DAILY rosuvastatin 20 mg tablet 20 mg PO DAILY prednisone 20 mg tablet 40 mg PO DAILY 5 Days Qty: 10 0RF triamcinolone acetonide 0.1 % cream 1 applic topical BID 7 Days Qty: 30 0RF metformin 500 mg tablet 500 mg PO DAILY 20 Days Qty: 20 0RF Follow-up/Referrals: Jero,MD Ciaran [Non-Staff] - Stand Alone Forms: Work/School Release IP
[2025-02-07] MEDS: HYDROcodone/acetaminophen (*CRX) 5-325 MG TABLET 1 TAB PO (21:10)
[2025-02-07] MEDS: AMOXICILLIN/CLAVULANATE K 875-125 MG TAB 1 TABLET PO (21:24)
--- OUTSIDE RECORDS SUMMARY | 2025-02-07 21:38 | XMS_ITS | Clinical Summary ---
Author Organization [facility] Address [address] [place] [address] Care Team Providers Care Mix House Tender Name Role Phone Kunal Diana MD Primary Care Provider [phone] Allergies No known active allergies Medications metFORMIN XR (GLUCOPHAGE XR) 500 mg 24 hr tablet TAKE 2 TABLETS(1000 MG) BY MOUTH TWICE DAILY 360 tablet 1 4 Active amitriptyline (ELAVIL) 10 mg tablet TAKE 1 TABLET(10 MG) BY MOUTH EVERY NIGHT 90 tablet 1 4 Active ammonium lactate (LAC-HYDRIN) 12 % lotionIndicatio ns:Dry Skin Apply topically as needed for dry skin 400 g 1 4 Active glimepiride (AMARYL) 4 mg tablet Take 1 tablet (4 mg total) by mouth 2 (two) times a day with meals 180 tablet 1 4 02/13/20 25 Active rosuvastatin (CRESTOR) 5 mg tablet Take 1 tablet (5 mg total) by mouth daily 90 tablet 1 4 02/13/20 25 Active tirzepatide (MOUNJARO) 7.5 mg/0.5 mL pen injector injection Inject 0.5 mL (7.5 mg total) under the skin every 7 days 6 mL 1 5 03/16/20 25 Active fluconazole (DIFLUCAN) 200 mg tablet Take 1 tablet (200 mg total) by mouth once a week 3 tablet 5 Active Active Problems Problem Noted Date Diagnosed Date Idiopathic peripheral neuropathy 12/08/2023 Assessment & Plan (12/08/2023 2:53 PM CDT): Still having sx Not at goal at this time Start elavil 10 mg qhs Type 2 diabetes mellitus with hyperlipidemia Assessment & Plan (08/16/2024 9:07 AM COMMUNICATIONS DIRECTOR): Lab Results Component Value Date HGBA1C 9.3 [...] 12/08/2023 Assessment & Plan (08/16/2024 9:01 AM COMMUNICATIONS DIRECTOR): Wt Readings from Last 3 Encounters: 08/16/24 [...] 12/08/2023 Assessment & Plan (08/16/2024 9:01 AM COMMUNICATIONS DIRECTOR): Wt Readings from Last 3 Encounters: 08/16/24 [...] Encounters Date Type Department Care Team Description 11/08/2024 8:30 AM CDT Orders Only [facility] [address] [place] [address] 11/07/2024 8:00 AM CDT Orders Only [facility] [address] [place] [id number] from Last 3 Months Immunizations Immunization Administration [...] Comments Blood Pressure 120/86 08/16/2024 8:45 AM COMMUNICATIONS DIRECTOR Pulse 77 08/16/2024 8:45 AM COMMUNICATIONS DIRECTOR Temperature 36.4 C (97.5 F) 03/22/2024 12:37 PM CDT Respiratory Rate 16 08/16/2024 8:45 AM COMMUNICATIONS DIRECTOR Oxygen Saturation 98% 08/16/2024 8:45 AM COMMUNICATIONS DIRECTOR Inhaled Oxygen Concentration - - Weight 137.4 kg (303 lb) 08/16/2024 8:45 AM COMMUNICATIONS DIRECTOR Height 177.8 cm (5' 10) 08/16/2024 8:45 AM COMMUNICATIONS DIRECTOR Body Mass Index 43.48 08/16/2024 8:45 AM COMMUNICATIONS DIRECTOR Plan of Treatment Health Maintenance Due Date Last Done Comments Dilated Eye Exam 1980 Foot Exam 1980 Varicella Vaccines (1 of 2 - 13+ 2-dose series) 1993 Pneumococcal vaccine <65 (1 of 2 - PCV) 1999 Covid-19 Vaccine ( season) 2024 10/12/2021, 10/20/2020, 10/20/2020, Additional history exists Regular Well Visit/Exam 18-64 12/07/2024 12/08/2023 Hemoglobin A1C 02/14/2025 08/16/2024, 08/0 08/2023, 12/08/2023 Albumin Creatinine Ratio, Urine 04/18/2025 04/18/2024 Lipid Panel 04/18/2025 04/18/2024 eGFR 04/18/2025 04/18/2024, 03/26/2021 Influenza Vaccine (Season Ended) 2025 Depression Screening 08/16/2025 08/16/2024, 04/02/2024, 03/22/2024, Additional history exists DTaP/Tdap/Td Vaccine (6 - Td or Tdap) 03/26/2031 03/26/2021, 01/18/2012, 03/12/1996, Additional history exists Hepatitis B Screening Completed 04/18/2024 Hepatitis C Screening Completed 04/18/2024 HPV Vaccines Aged Out No longer eligi ble based on patient's age to complete this topic Procedures Procedure Name Priority Date/Time Associated Diagnosis Comments POCT HEMOGLOBIN A1C Routine 08/16/2024 8 :55 AM COMMUNICATIONS DIRECTOR Type 2 diabetes mellitus with hyperlipidemia (HCC) HEPATITIS C ANTIBODY Routine 04/18/2024 12:16 [...] to Health Maintenance Results * (ABNORMAL) POCT hemoglobin A1c (08/16/2024 8:55 AM COMMUNICATIONS DIRECTOR) Hemoglobin A1C, POC 9.3 4.0 - 5.6 % Capillary blood 08/16/2024 8 :55 AM COMMUNICATIONS DIRECTOR us Kunal Diana MD POINT OF CARE TEST ORDERABLES Fi nal Result * Hepatitis C antibody (04/18/2024 12:16 PM CDT) Hep C Ab NON-REACTI VE NON-REACT CHANDRAKANT [facility] Comment: HCV antibody was non-reactive. There is no laboratory evidence of HCV infection. In most cases, no further action is required. However, if recent HCV exposure is suspected, a test for HCV RNA (test code 75257) is suggested. For additional information please refer to http://education.Cleo/faq/BMZ59m1 (This link is being provided for informational/ educational purposes only.) 04/18/2024 12:1 6 PM CDT 04/18/2024 12:16 PM CDT us Kunal Diana MD LAB MICROBIOLOGY - GENERAL ORDER CORINNE Final Result [facility] [address] [place] [address] * (ABNORMAL) Albumin Creatinine Ratio, Urine (04/18/2024 [...] LAB URINE ORDERABLES Final Resul t CARMEN [employer] [address] [place] [address] * (ABNORMAL) Lipid panel (04/18/2024 12:16 PM CDT) Cholesterol 260(H) <200 mg/dL [facility] HDL 45 > OR = 40 mg/dL [employer] Triglycerides 942(H) <150 mg/dL [employer] [facility] brianna Fowler Comment: If a non-fasting specimen [...] Clin. Lipidol. 2015;9:129-169. LDL mg/dL (calc) Carmen [facility] Comment: LDL cholesterol not calculated. Triglyceride [...] LDL-C. Marcelo CULLEN et al. KIRA. 2013;310(19): 2128-3174 (http://education.Polimetrix/faq/DGM966) Chol/HDL ratio 5.8(H) <5.0 (calc) [facility] Non-HDL, (LDL+VLDL) 215(H) <130 mg/dL (calc) [employer] [facility] Comment: For patients with diabetes plus 1 major ASCVD risk factor, treating to a non-HDL-C goal of <100 mg/dL (LDL-C of <70 mg/dL) is considered a therapeutic option. Blood 04/18/2024 12:1 6 PM CDT 04/18/2024 12:16 PM CDT us Kunal Diana MD LAB BLOOD ORDERABLES Final Resul t [facility] [address] [place] [address] * (ABNORMAL) Comprehensive metabolic panel (04/18/2024 12:16 PM CDT) Glucose 198(H) 65 - 99 mg/dL Carmen [employer] Fowler Comment: Fasting reference interval For someone without known diabetes, a glucose value >125 mg/dL indicates that they may have diabetes and this should be confirmed with a follow-up test. BUN 13 7 - 25 mg/dL [facility] [employer] brianna Fowler Creatinine 0.74 0.60 - 1.29 mg/dL Carmen [employer] brianna Fowler eGFR 115 > OR = 60 mL/min/1.7 3m2 Carmen [facility] BUN/creat ratio SEE NOTE: 6 - 22 (calc) [facility] [employer] Comment: Not Reported: BUN and Creatinine are within reference range. Sodium 133(L) 135 - 146 mmol/L [facility] Potassium, pl 4.3 3.5 - 5.3 mmol/L [facility] Chloride 98 98 - 110 mmol/L [facility] CO2 25 20 - 32 mmol/L [facility] Calcium 9.3 8.6 - 10.3 mg/dL [facility] Protein, sr 7.6 6.1 - 8.1 g/dL [facility] Albumin 4.4 3.6 - 5.1 g/dL [facility] Malcolm GLOBULIN 3.2 1.9 - 3.7 g/dL (calc) [facility] Alb/glob ratio 1.4 1.0 - 2.5 (calc) [facility] Bilirubin, total 0.6 0.2 - 1.2 mg/dL [facility] Alk phos 55 36 - 130 U/L [facility] AST 28 10 - 40 U/L [employer] brianna Malcolm ALT (SGPT) 32 9 - 46 U/L [facility] Blood 04/18/2024 12:1 6 PM CDT 04/18/2024 12:16 PM CDT us Kunal Diana MD LAB BLOOD ORDERABLES Final Resul t QUEST [facility] [address] [place] [address] from Last 3 Months or Most Recently Relevant to Health Maintenance Insurance [employer] [facility] [employer] [place] Care Teams Mix House Tender Relationship Specialty Start Date End Date Kunal Diana MD [address] [place] [address] PCP - General Family Medicine 12/08/23
--- OUTSIDE RECORDS SUMMARY | 2025-02-07 21:38 | XMS_ITS | Clinical Summary ---
Author Organization [facility] Address [address] [place] [address] Phone Care Team Providers Care Senior Civil Engineer Name Role Phone Hasmukh De La Paz [...] file Legal Sex Male 10:28 AM SENIOR JAVA DEVELOPER Gender Identity Not on file Sexual Orientation Not on file Last Filed Vital Signs Vital Sign Reading Time Taken Comments Blood Pressure 134/86 08/10/2013 8:06 AM SENIOR JAVA DEVELOPER Pulse 76 08/10/2013 8:06 AM SENIOR JAVA DEVELOPER Temperature 37.1 C (98.8 F) 08/10/2013 8:06 AM SENIOR JAVA DEVELOPER pt took tylenol this morning Respiratory Rate 16 08/10/2013 8:06 AM SENIOR JAVA DEVELOPER Oxygen Saturation 97% 08/10/2013 8:0 6 AM SENIOR JAVA DEVELOPER Inhaled Oxygen Concentration - - Weight 170.1 kg (375 lb) 08/10/2013 8:0 6 AM SENIOR JAVA DEVELOPER Height 180.3 cm (5' 11) 08/10/2013 8:0 6 AM SENIOR JAVA DEVELOPER Body Mass Index 52.3 08/10/2013 8:06 AM SENIOR JAVA DEVELOPER Plan of Treatment Health Maintenance Due Date [...] patient's age to complete this topic Insurance [facility] Address: [facility] [id number] [place] [address] JACKELYN ANGULO [id number] Care Teams Senior Civil Engineer Relationship Specialty Start Date End Date Hasmukh De La Paz MD PCP - General Internal Medicine 07/24/12
--- OUTSIDE RECORDS SUMMARY | 2025-02-07 21:38 | XMS_ITS | Referral Summary ---
Author Organization [facility] Address [address] [place] [address] Care Team Providers Care Outpatient Receptionist Name Role Phone Kunal Diana MD Primary Care Provider [phone] Encounters Date Type Department Care Team Description 11/08/2024 8:30 AM CDT Orders Only [facility] [address] [place] [id number] 11/07/2024 8:00 AM CDT Orders Only [facility] [address] [place] [address] from Last 3 Months Allergies No known [...] hyperlipidemia Assessment & Plan (08/16/2024 9:07 AM FUR REPAIRER): Lab Results Component Value Date HGBA1C 9.3 [...] 12/08/2023 Assessment & Plan (08/16/2024 9:01 AM FUR REPAIRER): Wt Readings from Last 3 Encounters: 08/16/24 [...] 12/08/2023 Assessment & Plan (08/16/2024 9:01 AM FUR REPAIRER): Wt Readings from Last 3 Encounters: 08/16/24 [...] Comments Blood Pressure 120/86 08/16/2024 8:45 AM FUR REPAIRER Pulse 77 08/16/2024 8:45 AM FUR REPAIRER Temperature 36.4 C (97.5 F) 03/22/2024 12:37 PM CDT Respiratory Rate 16 08/16/2024 8:45 AM FUR REPAIRER Oxygen Saturation 98% 08/16/2024 8:45 AM FUR REPAIRER Inhaled Oxygen Concentration - - Weight 137.4 kg (303 lb) 08/16/2024 8:45 AM FUR REPAIRER Height 177.8 cm (5' 10) 08/16/2024 8:45 AM FUR REPAIRER Body Mass Index 43.48 08/16/2024 8:45 AM FUR REPAIRER Plan of Treatment Not on file Procedures Procedure Name Priority Date/Time Associated Diagnosis Comments POCT HEMOGLOBIN A1C Routine 08/16/2024 8 :55 AM FUR REPAIRER Type 2 diabetes mellitus with hyperlipidemia (HCC) [...] (ABNORMAL) POCT hemoglobin A1c (08/16/2024 8:55 AM FUR REPAIRER) Pathologist [facility] Hemoglobin A1C, POC 9.3 4.0 - 5.6 % Capillary blood 08/16/2024 8 :55 AM FUR REPAIRER Kunal Diana MD POINT OF CARE TEST ORDERABLES Fi nal Result * Hepatitis C antibody (04/18/2024 12:16 PM CDT) Pathologist [facility] Hep C Ab NON-REACTI VE NON-REACT CHANDRAKANT [facility] Comment: HCV antibody was non-reactive. There is no laboratory evidence of HCV infection. In most cases, no further action is required. However, if recent HCV exposure is suspected, a test for HCV RNA (test code 57293) is suggested. For additional information please refer to http://education.BigTent Design/faq/DOB99y6 (This link is being provided for informational/ educational purposes only.) 04/18/2024 12:1 6 PM CDT 04/18/2024 12:16 PM CDT us Kunal Diana MD LAB MICROBIOLOGY - GENERAL ORDER CORINNE Final Result [facility] [address] [place] [address] * (ABNORMAL) Albumin Creatinine Ratio, Urine (04/18/2024 12:16 PM CDT) Pathologist [facility] Creatinine, ur 169 20 - 320 mg/dL [facility] Microalbumin, ur 43.1 See Note: mg/dL [facility] Comment: Reference Range: Reference Range Not established Microalbumin/creat ratio 255(H) <30 mg/g creat [facility] Comment: The ADA defines abnormalities in [...] LAB URINE ORDERABLES Final Resul t CARMEN [facility] [address] [address] [address] * (ABNORMAL) Lipid panel (04/18/2024 12:16 PM CDT) Cholesterol 260(H) <200 mg/dL [facility] HDL 45 > OR = 40 mg/dL [facility] Triglycerides 942(H) <150 mg/dL [facility] Comment: If a non-fasting specimen [...] of Clin. Lipidol. 2015;9:129-169. LDL mg/dL (calc) [facility] Comment: LDL cholesterol not calculated. [...] LDL-C. Marcelo CULLEN et al. KIRA. 2013;310(19): 8766-7713 (http://education.Semant.io.[facility]/faq/VXK631) Chol/HDL ratio 5.8(H) <5.0 (calc) [facility] Non-HDL, (LDL+VLDL) 215(H) <130 mg/dL (calc) [facility] Comment: For patients with diabetes plus 1 major ASCVD risk factor, treating to a non-HDL-C goal of <100 mg/dL (LDL-C of <70 mg/dL) is considered a therapeutic option. Blood 04/18/2024 12:1 6 PM CDT 04/18/2024 12:16 PM CDT us Kunal Diana MD LAB BLOOD ORDERABLES Final Resul t [facility] [address] [place] [address] * (ABNORMAL) Comprehensive metabolic panel (04/18/2024 12:16 PM CDT) Glucose 198(H) 65 - 99 mg/dL [facility] brianna Fowler Comment: Fasting reference interval For someone without known diabetes, a glucose value >125 mg/dL indicates that they may have diabetes and this should be confirmed with a follow-up test. BUN 13 7 - 25 mg/dL [facility] Fowler Creatinine 0.74 0.60 - 1.29 mg/dL [facility] Fowler eGFR 115 > OR = 60 mL/min/1.7 3m2 [facility] bri[facility] Fowler BUN/creat ratio SEE NOTE: 6 - 22 (calc) [facility] Comment: Not Reported: BUN and Creatinine are within reference range. Sodium 133(L) 135 - 146 mmol/L [facility] Fowler Potassium, pl 4.3 3.5 - 5.3 mmol/L [facility] Chloride 98 98 - 110 mmol/L [facility] CO2 25 20 - 32 mmol/L [facility] Calcium 9.3 8.6 - 10.3 mg/dL [facility] bri[facility] Fowler Protein, sr 7.6 6.1 - [...] ORDERABLES Final Resul t CAR[facility] [address] [place] [address] from Last 3 Months or Most Recently Relevant to Health Maintenance Insurance [employer] * Guarantor: Kofi Tang Account Type Relation to Patient Date of Phone Billing Address Personal/Family Self [address] [place] [address] [employer] Care Teams Outpatient Receptionist Relationship Specialty Start Date End Date Kunal Diana MD [address] [place] [address] [address] RUFF [address] [place] [address] PCP - General Family Medicine 12/08/23
== END 2025-02-07 22:08 | disposition home or self-care (01) ==
LOC: ANHED 21:35
PROVIDERS: Emergency Provider Physician Assistant
DX: K02.9 Dental caries, unspecified (principal)
CPT/HCPCS: 99283; A9270